=== PATIENT | female | born 1940 | race Caucasian/White ===

== ENCOUNTER 2017-06-11 12:25 | Emergency (ER) | payer MEDICARE, OTHER ==
[~2017-06-11] VITALS: Ht 160 cm; Wt 58.0 kg
[~2017-06-11 12:25] MED LIST: AGGR20025 PO; ALPR.25 PO; CHOL50008 PO; CPMMACHINE; GINK60TA2 PO; HYDR-3516 PO; LEVO75TA3 PO; LISI2.5T3 PO; METF500T PO; MISC-163; PANT40TA3 PO; SIMV40TA PO; SYSTSOL11 EACH EYE; TRAZ50TA12 PO; VITA10002 PO; WALKER WHEELS/F1 MIS
[2017-06-11 12:30] VITALS: BP 124/60; PULSE 63; RESP 16; TEMP 97.9; O2SAT 98
[2017-06-11] MEDS ORDERED: MELO7.5T4 PO (12:49)
[2017-06-11] MEDS ORDERED: LEXA10TA PO (12:49)
--- NOTE | 2017-06-11 13:09 | PD ---
HPI Chief Complaint: Musculoskeletal Complaint Time Seen by Provider: 12:58 Travel History International Travel<30 days: No Contact w/Intl Traveler<30days: No Traveled to known affect area: No History of Present Illness HPI 76-year-old female presents for evaluation of lower back pain. Symptoms started 1.5 weeks ago. The pain is a sharp shooting pain in lower back that radiates down the posterior left thigh. She has had similar pain in the past, diagnosed with sciatica. She is currently trying use [id number] NSAIDs with minimal relief. She denies any trauma but she does note that she was carrying heavy grocery bags and thinks that this may have aggravated her back. Denies any known history of osteoporosis. Denies any abdominal pain, nausea or vomiting, bowel or bladder incontinence, saddle anesthesia. She has no other complaints at this time. PFSH Past Medical History Arthritis: Yes Blood Disorders: No Cancer: Yes (COLON) Cardiovascular Problems: No High Cholesterol: Yes Chemotherapy: Yes Diabetes: Yes Endocrine: No Gastrointestinal Disorders: Yes (IBS, COLON CANCER HX--SURGERY,CHEMO,RADIATION 2007) GERD: Yes Genitourinary: Yes (INCREASED FREQUENCY) Hepatitis: No Hiatal Hernia: No Hypertension: Yes Immune Disorder: No Musculoskeletal: Yes (LOW BACK AND BILATERAL HIP PAIN) Neurologic: No Psychiatric: No Reproductive: No Respiratory: No Immunizations Current: Yes Radiation Therapy: Yes Thyroid Disease: Yes (HYPOTHYROID) Ulcer: Yes ("STOMACH ULCER") Menopausal: Yes Past Surgical History Abdominal Surgery: Yes (GALLBALDDER, APPENDECTOMY) AICD: No Appendectomy: Yes Body Medical Devices: HX OF PORT, WAS REMOVED Cardiac Surgery: No Cholecystectomy: Yes Ear Surgery: No Endocrine Surgery: No Eye Surgery: No Genitourinary Surgery: No Gynecologic Surgery: Yes (HYSTERECTOMY) Hysterectomy: Yes Joint Replacement: No Oral Surgery: No Pacemaker: No Thoracic Surgery: No Tonsillectomy: Yes Other Surgery: Yes (RAMILA,APPY,COLOECTOMY,GALLBLADDER,INFUSAPORT,CYST) Social History Alcohol Use: Yes (OCC) Tobacco Use: Yes (1/2 ppd) Substance Use: No Allergies-Medications (Allergen,Severity, Reaction): Coded Allergies: meperidine (Unverified Allergy, Severe, Psychosis, 06/11/17) tetanus immune globulin (Unverified Allergy, Severe, SWELLING, 06/11/17) Fish Containing Products (Unverified Allergy, Intermediate, RASH, 06/11/17) 06/28/2013 PT STRONGLY DENIES ALLERGY. STATES SHE EATS LOTS OF TUNA/PT CONTINUES TO DENY ALLERGY MADE AWARE IN ER 11/04/14 adhesive (Unverified Allergy, Intermediate, BLISTERS, 06/11/17) ADHESIVE TAPE-PAPER TAPE [place] Reported Meds & Prescriptions Reported Meds & Active Scripts Active Lidocaine Patch 12 HR (Lidocaine) 5 % Patch 1 Patch TOPICAL DAILY PRN Remove patch after 12 hours Tylenol-Codeine #3 (Acetaminophen-Codeine) 300-30 mg Tab 1 Tab PO Q4H PRN Reported Lexapro (Escitalopram Oxalate) 10 Mg Tab 10 Mg PO DAILY Meloxicam 7.5 Mg Tab 7.5 Mg PO DAILY Xanax (Alprazolam) 0.25 Mg Tab 0.25 Mg PO HS Trazodone (Trazodone HCl) 50 Mg Tab 50 Mg PO HS Simvastatin 40 Mg Tab 40 Mg PO HS Pantoprazole (Pantoprazole Sodium) 40 Mg Tab 40 Mg PO DAILY Aggrenox (Dipyridamole/Aspirin) 200-25 Mg Cap 1 Cap PO BID Lisinopril 2.5 Mg Tab 10 Mg PO DAILY Levothyroxine (Levothyroxine Sodium) 75 Mcg Tab 75 Mcg PO DAILY Metformin (Metformin HCl) 500 Mg Tab 250 Mg PO BIDPC With meals Review of Systems Except as stated in HPI: all other systems reviewed are Neg Physical Exam Narrative GENERAL: Well-developed well-nourished female in no acute distress SKIN: Warm and dry. HEAD: Atraumatic. Normocephalic. EYES: Pupils equal and round. No scleral icterus. No injection or drainage. ENT: No nasal bleeding or discharge. Mucous membranes pink and moist. NECK: Trachea midline. No JVD. CARDIOVASCULAR: Regular rate and rhythm. No murmur appreciated. RESPIRATORY: No accessory muscle use. Clear to auscultation. Breath sounds equal bilaterally. GASTROINTESTINAL: Abdomen soft, non-tender, nondistended. Hepatic and splenic margins not palpable. MUSCULOSKELETAL: No obvious deformities. There is some tenderness to palpation along the lower back and left parasacral musculature. 5 out of 5 muscle strength in lower extremities bilaterally. No lower extremity edema. Distal pulses are intact. NEUROLOGICAL: Awake and alert. No obvious cranial nerve deficits. Motor grossly within normal limits. Normal speech. PSYCHIATRIC: Appropriate mood and affect; insight and judgment normal. Data Data Last Documented VS Vital Signs Date Time Temp Pulse Resp B/P (MAP) Pulse Ox O2 Delivery O2 Flow Rate FiO2 06/11/17 12:30 97.9 63 16 124/60 (81) 98 Orders Orders Spine, Lumbar - Ltd (Ap & Lat) (06/11/17 ) [facility] Medical Decision Making Medical Screen Exam Complete: Yes Emergency Medical Condition: Yes Medical Record Reviewed: Yes Differential Diagnosis Herniated nucleus pulposus, spinal stenosis, compression fracture, degenerative disc disease, piriformis syndrome Narrative Course 76-year-old female presents for evaluation of 1.5 weeks of lower back pain that radiates down the left leg. Her history is certainly consistent with lumbosacral radiculopathy. Given her age, x-ray of the lumbar spine is been ordered to rule out compression fracture. Extremities reveals degenerative changes with no acute findings. The patient is currently prescribed meloxicam. She will be prescribed Tylenol with Codeine as well as Lidoderm patches for breakthrough pain. Diagnosis Primary Impression: Lumbosacral radiculopathy Additional Instructions: Medication as needed. Do not drive or drink alcohol when taking Tylenol with Codeine. Follow-up with primary care physician. Return for any emergent medical conditions. Med/Other Pt SpecificInfo: Prescription(s) given Scripts Lidocaine Patch 12 HR (Lidocaine Patch 12 HR) 5 % Patch 1 PATCH TOPICAL DAILY Y for PAIN, #1 BOX 1 Refill Remove patch after 12 hours Prov: Bubba Jarrell MD 06/11/17 Acetaminophen-Codeine (Tylenol-Codeine #3) 300-30 mg Tab 1 TAB PO Q4H Y for PAIN, #20 TAB 0 Refills Prov: Bubba Jarrell MD 06/11/17 Disposition: 01 DISCHARGE HOME Condition: Stable Art Chaves Jun 11, 2017 13:09
--- NOTE | 2017-06-11 13:24 | RADRPT ---
EXAM DATE/TIME: 06/11/2017 13:05 [facility] COMPARISON: No previous studies available for comparison. INDICATIONS : Back pain and pain radiating down left leg with no known injury MEDICAL HISTORY : None. SURGICAL HISTORY : None. ENCOUNTER: Initial ACUITY: 2 weeks PAIN SCORE: 10/10 LOCATION: Bilateral lumbar spine FINDINGS: There are degenerative changes in the lumbar spine at L2-3 and L4-5 with vacuum disc evident. There are mild degenerative changes in the facets. There is loss of disc space height at L5-S1. Moderate vascular calcifications are noted. CONCLUSION: Degenerative changes as described above. Felton Renteria MD FACR on June 11, 2017 at 13:17 Board Certified Radiologist. This report was verified electronically.
[2017-06-11] MEDS ORDERED: TYLETAB34 PO (13:27)
[2017-06-11] MEDS ORDERED: LIDO1PAD52 TOPICAL (13:31)
== END 2017-06-11 13:57 | disposition home or self-care (01) ==
LOC: PHEFT 12:25
DX: M54.17 Radiculopathy, lumbosacral region (principal); E03.9 Hypothyroidism, unspecified; E11.9 Type 2 diabetes mellitus without complications; E78.00 Pure hypercholesterolemia, unspecified; I10 Essential (primary) hypertension; Z87.19 Personal history of other diseases of the digestive system; Z85.038 Personal history of other malignant neoplasm of large intestine
CPT/HCPCS: 72100; 99283

== ENCOUNTER → 2017-06-28 | Day surgery (SDC) | payer OTHER ==
[~2017-06-28] VITALS: Ht 160 cm; Wt 54.0 kg
[~2017-06-28] MED LIST changes: -CHOL50008 PO; -CPMMACHINE; +DO NOT ADM ANY ANTICOAGULANT DRUGS PRN; -GINK60TA2 PO; +GLUCAGON 1 MG/ML VIAL IV PUSH ONE; -HYDR-3516 PO; +LACTATED RINGER'S 1000 ML INJ 1,000 ML IV ONE; +LEXA10TA PO; +LIDO1PAD52 TOPICAL; +LIDOCAINE HCL 1% PF 5 ML AMPULE OTHER ONE; +MELO7.5T4 PO; -MISC-163; +ONDANSETRON HCL 4 MG/2 ML VIAL IV ONE; +PROPOFOL 200 MG/20 ML AMP IV ONE; -SYSTSOL11 EACH EYE; +TYLETAB34 PO; -VITA10002 PO; -WALKER WHEELS/F1 MIS
[2017-06-28 11:41] VITALS: BP 132/63; PULSE 84; RESP 22; TEMP 98.8; O2SAT 97
--- NOTE | 2017-06-28 14:15 | PD ---
HPI Chief Complaint: GI Complaint Time Seen by Provider: 13:56 Travel History International Travel<30 days: No Contact w/Intl Traveler<30days: No Traveled to known affect area: No History of Present Illness HPI This patient complains of trouble swallowing and pain when she swallows. She has history of esophageal stricture and has had multiple esophageal dilations in the past. The last was 5 months ago done by her GI physician Dr. Moscoso. Not having fever or vomiting. Feels like her esophagus is closing up. Duration 3-4 days. She called her office and got a follow-up set up for August 02 at 8:30 in the morning with . However she doesn't think she is going last that long. Symptoms moderately severe. No alleviating factors. Symptoms are exacerbated by solid food. PFSH Past Medical History Arthritis: Yes Blood Disorders: No Cancer: Yes (COLON) Cardiovascular Problems: No High Cholesterol: Yes Chemotherapy: Yes Diabetes: Yes Endocrine: No Gastrointestinal Disorders: Yes (IBS, COLON CANCER HX--SURGERY,CHEMO,RADIATION 2007) GERD: Yes Genitourinary: Yes (INCREASED FREQUENCY) Hepatitis: No Hiatal Hernia: No Hypertension: Yes Immune Disorder: No Musculoskeletal: Yes (LOW BACK AND BILATERAL HIP PAIN) Neurologic: No Psychiatric: No Reproductive: No Respiratory: No Immunizations Current: Yes Radiation Therapy: Yes Thyroid Disease: Yes (HYPOTHYROID) Ulcer: Yes ("STOMACH ULCER") ?: Not Menopausal: Yes Past Surgical History Abdominal Surgery: Yes (GALLBALDDER, APPENDECTOMY) AICD: No Appendectomy: Yes Body Medical Devices: HX OF PORT, WAS REMOVED Cardiac Surgery: No Cholecystectomy: Yes Ear Surgery: No Endocrine Surgery: No Eye Surgery: No Genitourinary Surgery: No Gynecologic Surgery: Yes (HYSTERECTOMY) Hysterectomy: Yes Joint Replacement: No Oral Surgery: No Pacemaker: No Thoracic Surgery: No Tonsillectomy: Yes Other Surgery: Yes (RAMILA,APPY,COLOECTOMY,GALLBLADDER,INFUSAPORT,CYST) Social History Alcohol Use: Yes (OCC) Tobacco Use: Yes (1/2 ppd) Substance Use: No Allergies-Medications (Allergen,Severity, Reaction): Coded Allergies: meperidine (Unverified Allergy, Severe, Psychosis, 06/28/17) tetanus immune globulin (Unverified Allergy, Severe, SWELLING, 06/28/17) Fish Containing Products (Unverified Allergy, Intermediate, RASH, 06/28/17 ) 06/28/2013 PT STRONGLY DENIES ALLERGY. STATES SHE EATS LOTS OF TUNA/PT CONTINUES TO DENY ALLERGY MADE AWARE IN ER 11/04/14 adhesive (Unverified Allergy, Intermediate, BLISTERS, 06/28/17) ADHESIVE TAPE-PAPER TAPE [place] Reported Meds & Prescriptions Reported Meds & Active Scripts Active Reported Lexapro (Escitalopram Oxalate) 10 Mg Tab 10 Mg PO DAILY Meloxicam 7.5 Mg Tab 7.5 Mg PO DAILY Xanax (Alprazolam) 0.25 Mg Tab 0.25 Mg PO HS Trazodone (Trazodone HCl) 50 Mg Tab 50 Mg PO HS Simvastatin 40 Mg Tab 40 Mg PO HS Pantoprazole (Pantoprazole Sodium) 40 Mg Tab 40 Mg PO DAILY Aggrenox (Dipyridamole/Aspirin) 200-25 Mg Cap 1 Cap PO BID Lisinopril 2.5 Mg Tab 10 Mg PO DAILY Levothyroxine (Levothyroxine Sodium) 75 Mcg Tab 75 Mcg PO DAILY Metformin (Metformin HCl) 500 Mg Tab 250 Mg PO BIDPC With meals Review of Systems General / Constitutional: No: Fever Eyes: No: Visual changes HENT: No: Headaches Cardiovascular: No: Chest Pain or Discomfort Respiratory: No: Shortness of Breath Gastrointestinal: Positive: Nausea, Dysphagia Genitourinary: No: Dysuria Musculoskeletal: No: Pain Skin: No Rash Neurologic: No: Weakness Psychiatric: No: Depression Endocrine: No: Polydipsia Hematologic/Lymphatic: No: Easy Bruising Physical Exam Narrative GENERAL: Well-nourished, well-developed patient with esophageal discomfort . SKIN: Focused skin assessment reveals no rash and nodules. Skin is Warm and dry. HEAD: Atraumatic. Normocephalic. EYES: Pupils equal and round. No scleral icterus. No injection or drainage. ENT: No nasal bleeding or discharge. Mucous membranes pink and moist. NECK: Trachea midline. No JVD. CARDIOVASCULAR: Regular rate and rhythm. No murmur appreciated. RESPIRATORY: No accessory muscle use. Clear to auscultation. Breath sounds equal bilaterally. GASTROINTESTINAL: Abdomen soft, non-tender, nondistended. Hepatic and splenic margins not palpable. MUSCULOSKELETAL: No obvious deformities. No clubbing. No cyanosis. No edema. NEUROLOGICAL: Awake and alert. No obvious cranial nerve deficits. Motor grossly within normal limits. Normal speech. PSYCHIATRIC: Appropriate mood and affect; insight and judgment normal. Data Data Last Documented VS Vital Signs Date Time Temp Pulse Resp B/P (MAP) Pulse Ox O2 Delivery O2 Flow Rate FiO2 06/28/17 11:41 98.8 84 22 132/63 (86) 97 Orders Orders Ondansetron Inj (Zofran Inj) (06/28/17 14:15) Iv Access Insert/Monitor (06/28/17 14:09) Complete Blood Count With Diff (06/28/17 14:09) Basic Metabolic Panel (Bmp) (06/28/17 14:09) Glucagon Inj (Glucagon Inj) (06/28/17 14:15) Diet Npo Except Meds (06/28/17 Dinner) Consent (06/28/17 15:46) Admit Order (Ed Use Only) (06/28/17 15:48) Labs Laboratory Tests Test 06/28/17 14:30 White Blood Count 6.5 TH/MM3 Red Blood Count 4.19 MIL/MM3 Hemoglobin 12.7 GM/DL Hematocrit 38.1 % Mean Corpuscular Volume 90.9 FL Mean Corpuscular Hemoglobin 30.3 PG Mean Corpuscular Hemoglobin Concent 33.3 % Red Cell Distribution Width 15.1 % Platelet Count 246 TH/MM3 Mean Platelet Volume 7.4 FL Neutrophils (%) (Auto) 60.4 % Lymphocytes (%) (Auto) 27.1 % Monocytes (%) (Auto) 8.1 % Eosinophils (%) (Auto) 3.7 % Basophils (%) (Auto) 0.7 % Neutrophils # (Auto) 3.9 TH/MM3 Lymphocytes # (Auto) 1.8 TH/MM3 Monocytes # (Auto) 0.5 TH/MM3 Eosinophils # (Auto) 0.2 TH/MM3 Basophils # (Auto) 0.0 TH/MM3 CBC Comment DIFF FINAL Differential Comment Blood Urea Nitrogen 16 MG/DL Creatinine 0.81 MG/DL Random Glucose 84 MG/DL Calcium Level 10.0 MG/DL Sodium Level 137 MEQ/L Potassium Level 4.9 MEQ/L Chloride Level 103 MEQ/L Carbon Dioxide Level 23.6 MEQ/L Anion Gap 10 MEQ/L Estimat Glomerular Filtration Rate 69 ML/MIN MDM Medical Decision Making Medical Screen Exam Complete: Yes Emergency Medical Condition: Yes Medical Record Reviewed: Yes Differential Diagnosis Esophageal stricture, esophageal foreign body, achalasia Narrative Course I have reviewed the patient's electronic medical record. Reviewed her last visit here. Last dilation was 5 months ago IV placed I gave her dose of IV Zofran and 1 mg IV glucagon CBC is normal Metabolic profile is normal I had her drink water and she very much struggled to get any water down. It caused her pain and barely could get it down I placed a call to her GI physician to discuss. He came to the bedside and evaluated her. He is going to endoscopy with possible dilation of the patient cannot eat Hopefully she'll be able to go home after the procedure Diagnosis Primary Impression: Dysphagia Qualified Codes: R13.10 - Dysphagia, unspecified Additional Impression: Esophageal stricture Admitting Information Admitting Physician Requests: Admit Bubba Jarrell MD Jun 28, 2017 14:15
[2017-06-28 14:47] LABS: AUTOMATED NEUTROPHIL # 3.9 TH/MM3 (1.8-7.7); BASOPHIL % 0.7 % (0.0-2.0); EOSINOPHIL # 0.2 TH/MM3 (0-0.4); EOSINOPHIL % 3.7 % (0.0-4.0); HEMATOCRIT 38.1 % (35.0-46.0); HEMO FLAGS DIFF FINAL; LYMPH % 27.1 % (9.0-44.0); LYMPHOCYTE # 1.8 TH/MM3 (1.0-4.8); MEAN CELL VOLUME 90.9 FL (80.0-100.0); MEAN CORPUSCULAR HEMOGLOBIN 30.3 PG (27.0-34.0); MEAN CORPUSCULAR HGB CONC 33.3 % (32.0-36.0); MONO % 8.1 % (0.0-8.0); NEUT % 60.4 % (16.0-70.0); PLATELET COUNT 246 TH/MM3 (150-450); RED BLOOD COUNT 4.19 MIL/MM3 (4.00-5.30); RED CELL DISTRIBUTION WIDTH 15.1 % (11.6-17.2); WHITE BLOOD COUNT 6.5 TH/MM3 (4.0-11.0)
[2017-06-28 15:05] LABS: BICARBONATE 23.6 MEQ/L (21.0-32.0); POTASSIUM 4.9 MEQ/L (3.5-5.1)
--- NOTE | 2017-06-28 15:35 | PD.CONS ---
HPI History of Present Illness This is a 76 year old female with hx esophageal strictures requiring multiple dilatations who presented with projectile vomiting, difficult swallowing, hoarse voice. Wednesday she had eaten and an hour later just vomited, no feeling of nausea. She had several episodes vomiting. She tried a few bites of sandwich subsequently and vomited that as well. No blood in vomit. NO abd pain. Admits chronic diarrhea. Had EGD with dilatation with Dr Moscoso 5 months ago. Takes aggrenox and last took or Wednesday. (Betina Marrufo) PFSH Past Medical History colon ca esophageal strictures Past Surgical History hysterectomy cholecystectomy (Betina Marrufo) Coded Allergies: meperidine (Unverified Allergy, Severe, Psychosis, 06/28/17) tetanus immune globulin (Unverified Allergy, Severe, SWELLING, 06/28/17) Fish Containing Products (Unverified Allergy, Intermediate, RASH, 06/28/17 ) 06/28/2013 PT STRONGLY DENIES ALLERGY. STATES SHE EATS LOTS OF TUNA/PT CONTINUES TO DENY ALLERGY MADE AWARE IN ER 11/04/14 adhesive (Unverified Allergy, Intermediate, BLISTERS, 06/28/17) ADHESIVE TAPE-PAPER TAPE [place] Family History none Social History no ETOH 6 cigarettes daily no illicit drug use (Betina Marrufo) Review of Systems Constitutional: DENIES: Fever Ears, nose, mouth, throat: DENIES: Throat pain Respiratory: DENIES: Hemoptysis Cardiovascular: DENIES: Chest pain Gastrointestinal: COMPLAINS OF: Diarrhea, Vomiting, Difficulty Swallowing, DENIES: Abdominal pain, Black stools, Bloody stools, Constipation, Nausea, Hematemesis Genitourinary: DENIES: Hematuria Musculoskeletal: DENIES: Joint Swelling Integumentary: DENIES: Jaundice Neurologic: DENIES: Abnormal gait Psychiatric: DENIES: Confusion (Betina Marrufo) GI Exam Vitals I&O Vital Signs Date Time Temp Pulse Resp B/P (MAP) Pulse Ox O2 Delivery O2 Flow Rate FiO2 06/28/17 11:41 98.8 84 22 132/63 (86) 97 Laboratory Test 06/28/17 14:30 White Blood Count 6.5 TH/MM3 Red Blood Count 4.19 MIL/MM3 Hemoglobin 12.7 GM/DL Hematocrit 38.1 % Mean Corpuscular Volume 90.9 FL Mean Corpuscular Hemoglobin 30.3 PG Mean Corpuscular Hemoglobin Concent 33.3 % Red Cell Distribution Width 15.1 % Platelet Count 246 TH/MM3 Mean Platelet Volume 7.4 FL Neutrophils (%) (Auto) 60.4 % Lymphocytes (%) (Auto) 27.1 % Monocytes (%) (Auto) 8.1 % Eosinophils (%) (Auto) 3.7 % Basophils (%) (Auto) 0.7 % Neutrophils # (Auto) 3.9 TH/MM3 Lymphocytes # (Auto) 1.8 TH/MM3 Monocytes # (Auto) 0.5 TH/MM3 Eosinophils # (Auto) 0.2 TH/MM3 Basophils # (Auto) 0.0 TH/MM3 CBC Comment DIFF FINAL Differential Comment Blood Urea Nitrogen 16 MG/DL Creatinine 0.81 MG/DL Random Glucose 84 MG/DL Calcium Level 10.0 MG/DL Sodium Level 137 MEQ/L Potassium Level 4.9 MEQ/L Chloride Level 103 MEQ/L Carbon Dioxide Level 23.6 MEQ/L Anion Gap 10 MEQ/L Estimat Glomerular Filtration Rate 69 ML/MIN Physical Examination HEENT: PERRL; normocephalic; atraumatic; no jaundice. hoarse voice CHEST: CTA CARDIAC: RRR ABDOMEN: Soft, nondistended, LUQ TTP; no hepatosplenomegaly; bowel sounds are present in all four quadrants. EXTREMITIES: No clubbing, cyanosis, or edema. SKIN: Normal; no rash; no jaundice. [employer]: No focal deficits; alert and oriented times three. (Betina Marrufo) Assessment and Plan Plan ASSESSMENT - dysphagia, hoarse voice, projectile vomiting - pt with onset projectile vomiting w/o nausea and subsequent hoarseness, difficulty swallowing solids. Unable to tolerate solid food. hx esophageal strictures with multiple dilatations, last one with Dr Moscoso 5 m ago. PLAN - EGD with possible dilatation this afternoon - obtain consent - NPO - further recs to follow This pt seen by myself and Dr Whitney and this note was written on his behalf (Betina Marrufo) Physician Comments Patient seen and examined Agree with above Continue current supportive care Plan EGD to further evaluate Further recommendations shall depend on the findings (Jerry Whitney MD) Betina Marrufo Jun 28, 2017 15:35 Jerry Whitney MD Jun 28, 2017 17:08
--- NOTE | 2017-06-28 17:32 | PD.PROCEDR ---
GI Procedure REFERRING PHYSICIAN ED PROCEDURE PERFORMED EGD with biopsy INDICATION FOR PROCEDURE Dysphagia and hoarseness PROCEDURE: The procedure, risks and benefits were discussed with Ms. Lam and informed consent was obtained. Anesthesia sedated her with Diprivan. She was placed in the left lateral decubitus position. EGD: The Pentax videoscope was introduced through the oropharynx and advanced to the second portion of the duodenum under direct visualization. Retroflexion was performed in the stomach. FINDINGS: Esophagus there were several ulcerations noted from the mid to distal esophagus superficial and linear these were biopsied there was also a mild Schatzki ring The stomach there was small to moderate size hiatal hernia the gastric mucosa appeared to be somewhat erythemic in a patchy fashion no ulcerations or erosions and antral biopsies were taken further evaluation The duodenum there was some edema and some erythema noted in the duodenal bulb of unclear significance this was biopsied otherwise the duodenum was unremarkable ESTIMATED BLOOD LOSS: None SPECIMENS REMOVED: Esophageal, gastric, and duodenal biopsies COMPLICATIONS: None IMPRESSION: Erosive ulcerated esophagitis Mild Schatzki ring Mild to moderate hiatal hernia Gastritis Duodenitis PLAN: Await biopsy Recommend Protonix 40 mg twice a day Avoid nonsteroidal's Soft diet for now and advance as tolerated Follow-up with GI in 2 weeks Okay for discharge from a GI standpoint Jerry Whitney MD Jun 28, 2017 17:32
[2017-06-28 18:15] VITALS: BP 109/59; PULSE 78; RESP 18; TEMP 98; O2SAT 99
--- NOTE | 2017-06-29 20:21 | EKG ---
Date Performed: 06/28/2017 Time Performed: 16:21:12 PTAGE: 76 years EKG: Sinus rhythm NORMAL ECG PREVIOUS TRACING : 05/15/2015 14.33 Compared to prior tracing no significant change DOCTOR: Killian Stein Interpretating Date/Time 06/29/2017 20:20:52
== END | disposition home or self-care (01) ==
LOC: NEPD 11:39 → HSDC 15:50
PROVIDERS: ATTEND Internal Medicine Gastroenterology
DX: K22.10 Ulcer of esophagus without bleeding (principal); K29.80 Duodenitis without bleeding; K29.50 Unspecified chronic gastritis without bleeding; K44.9 Diaphragmatic hernia without obstruction or gangrene; I10 Essential (primary) hypertension; E11.9 Type 2 diabetes mellitus without complications; Z79.84 Long term (current) use of oral hypoglycemic drugs
CPT/HCPCS: 00740; 43239; 80048; 85025; 88305; 88312; 93005; 96374; 96375; 99285; J1610; J2405; J7120

== ENCOUNTER 2018-07-01 10:04 | Inpatient (IN) ==
--- NOTE | 2018-07-01 10:10 | ED ---
HPI General Chief complaint: Abdominal Pain Stated complaint: abd pain Source: patient Mode of arrival: EMS Limitations: no limitations History of Present Illness HPI narrative: 77-year-old female is complaining of abdominal pain. Been having abdominal pain for about 4 weeks. The pain involves the lower abdomen as well as the left flank area. It is been fairly constant and she says it is more severe today. She is come by ambulance. There has not been any vomiting or diarrhea. She is not aware of fever or chills. She says she does not urinate very often. There is been a loss of appetite. She has a history of hysterectomy and cholecystectomy. she says the pain is quite severe. She was treated for cancer of the colon around 1999. She says she had surgery followed by chemotherapy and is not aware of any recent activity she was going for colonoscopies but is not sure when her last one was. Related Data Home Medications Medication Instructions Recorded Confirmed aspirin-dipyridamole 1 cap PO DAILY 07/01/18 07/01/18 cholecalciferol (vitamin D3) 5,000 unit PO DAILY 07/01/18 07/01/18 donepezil 5 mg PO DAILY 07/01/18 07/01/18 escitalopram oxalate [Lexapro] 10 mg PO DAILY 07/01/18 07/01/18 levothyroxine [Synthroid] 75 mcg PO DAILY 07/01/18 07/01/18 lisinopril 2.5 mg PO DAILY 07/01/18 07/01/18 meloxicam 7.5 mg PO DAILY 07/01/18 07/01/18 metformin 250 mg PO BID 07/01/18 07/01/18 pantoprazole [Protonix] 40 mg PO BID 07/01/18 07/01/18 simvastatin 40 mg PO QPM 07/01/18 07/01/18 tramadol 50 mg PO Q6HR 07/01/18 07/01/18 trazodone 50 mg PO HS 07/01/18 07/01/18 Allergies Allergy/AdvReac Type Severity Reaction Status Date / Time meperidine Allergy Severe Psychosis Verified 07/01/18 10:43 tetanus immune globulin Allergy Severe SWELLING Verified 07/01/18 10:43 adhesive Allergy Intermediate BLISTERS Verified 07/01/18 10:43 Fish Containing Products Allergy Intermediate RASH Verified 10/19/18 10:43 Review of Systems ROS: all other systems reviewed are negative [facility] Medical History Medical History Colon cancer (Acute) Dementia (Acute) Diabetes (Acute) H/O: hysterectomy (Acute) High cholesterol (Acute) Hypertension (Acute) Hypothyroid (Acute) Surgical History Surgical History History of partial colectomy (Acute) Hx of cholecystectomy (Acute) Hx of tonsillectomy (Acute) Social History Social History Substance History: No History of Abuse Smoking Status: Former smoker How Often Do You Have a Drink Containing Alcohol: Never Recent Travel in [facility] within the Last 8 Weeks: No Recent Out of Country Travel within the Last 8 Weeks: No Exam Narrative Exam Narrative: GENERAL: Thin elderly female SKIN: Focused skin assessment warm/dry. HEAD: Atraumatic. Normocephalic. EYES: Pupils equal and round. No scleral icterus. No injection or drainage. ENT: No nasal bleeding or discharge. Mucous membranes pink and moist. NECK: Trachea midline. No JVD. CARDIOVASCULAR: Regular rate and rhythm. No murmur appreciated. RESPIRATORY: No accessory muscle use. Clear to auscultation. Breath sounds equal bilaterally. GASTROINTESTINAL: Abdomen soft, there is some lower abdominal and left-sided abdominal tenderness. She appears slightly distended bowel sounds are diminished but present. MUSCULOSKELETAL: No obvious deformities. No clubbing. No cyanosis. No edema. NEUROLOGICAL: Awake and alert. No obvious cranial nerve deficits. Motor grossly within normal limits. Normal speech. PSYCHIATRIC: Appropriate mood and affect; insight and judgment normal. Course Initial Documented Vital Signs Temperature 98.5 F 07/01/18 10:05 Pulse Rate 72 07/01/18 10:05 Respiratory Rate 18 07/01/18 10:05 Blood Pressure 141/71 H 07/01/18 10:05 Pulse Oximetry 99 07/01/18 10:05 Last Documented Vital Signs Temperature 98.5 F 07/01/18 10:05 Pulse Rate 72 07/01/18 10:05 Respiratory Rate 18 07/01/18 10:05 Blood Pressure 141/71 H 07/01/18 10:05 Pulse Oximetry 99 07/01/18 10:05 Medical Decision Making MDM Narrative Medical decision making narrative: On initial evaluation I was concerned there was some lower abdominal distention and a Haq catheter was inserted but only 300 cc is obtained and this did not provide relief of her pain. A CT scan of the abdomen and pelvis is suggestive of small bowel obstruction. She has received 6 mg of morphine without much relief of her discomfort. NG tube has been inserted but is causing a lot of gagging. We will try some Hurricaine spray. Case has been discussed with Dr. Jimenez who requests admission at the [facility] hospital to medical service Medical Screen Exam Complete: Yes Emergency Medical Condition: Yes Differential Diagnosis Differential Diagnosis: Differential includes diverticulitis, bowel obstruction , urinary retention Lab Data Result diagrams: 07/01/18 10:33 07/01/18 10:33 Lab Results 07/01/18 07/01/18 07/01/18 Range/Units 10:33 10:33 10:33 CBC w Diff Slide review pending WBC 10.1 (4.0-11.0) th/mm3 RBC 3.97 L (4.00-5.30) mil/mm3 Hgb 12.0 (11.6-15.3) gm/dL Hct 35.9 (35.0-46.0) % MCV 90.5 (80.0-100.0) fL MCH 30.2 (27.0-34.0) pg MCHC 33.3 (32.0-36.0) % RDW 14.1 (11.6-17.2) % Plt Count 446 (150-450) th/mm3 MPV 7.3 (7.0-11.0) fL Neut % (Auto) 75.6 H (16.0-70.0) % Lymph % (Auto) 12.5 (9.0-44.0) % [place] % (Auto) 4.0 (0.0-8.0) % Eos % (Auto) 0.9 (0.0-4.0) % Baso % (Auto) 7.0 H (0.0-2.0) % Neut # (Auto) 7.6 (1.8-7.7) th/mm3 Lymph # (Auto) 1.3 (1.0-4.8) th/mm3 [place] # (Auto) 0.4 (0.0-0.9) th/mm3 Eos # (Auto) 0.1 (0.0-0.4) th/mm3 Baso # (Auto) 0.7 H (0.0-0.2) th/mm3 WBC Differential Manual diff final Seg Neuts % (Manual) 82 H (16-70) % Lymphocytes % (Manual) 15 (9-44) % Monocytes % (Manual) 3 (0-8) % Abs Neuts (Manual) 8.3 H (1.8-7.7) th/mm3 Differential Comment . Platelet Estimate Normal (Normal) Platelet Morphology Normal (Normal) RBC Morphology Normal (Normal) Sodium 141 (136-145) meq/L Potassium 3.4 L (3.5-5.1) meq/L Chloride 109 H (98-107) meq/L Carbon Dioxide 20.2 L (21.0-32.0) meq/L Anion Gap 12 (5-15) meq/L BUN 7 (7-18) mg/dL Creatinine 0.71 (0.50-1.00) mg/dL Estimated GFR 80 L (>89) mL/min Random Glucose 91 (74-106) mg/dL Calcium 8.0 L (8.5-10.1) mg/dL Total Bilirubin 0.5 (0.2-1.0) mg/dL AST 17 (15-37) U/L ALT 12 (10-53) U/L Alkaline Phosphatase 75 (45-117) U/L Total Protein 6.5 (6.4-8.2) g/dL Albumin 2.9 L (3.4-5.0) g/dL Lipase 58 L (73-393) U/L Urine Color Yellow (Yellw/Straw) Urine Clarity Clear (Clear) Urine pH 7.5 (5.0-8.5) Ur Specific [place] 1.010 (1.002-1.035) Urine Protein Negative (Neg-Trace) mg/dL Urine Glucose (UA) Negative (Negative) mg/dL Urine Ketones Negative (Negative) mg/dL Urine Occult Blood Negative (Negative) Urine Nitrate Negative (Negative) Urine Bilirubin Negative (Negative) Urine Urobilinogen 1.0 (Less than 2) mg/dL Ur Leukocyte Esterase Negative (Negative) Ur Squamous Epith Cells 0-5 (0-5) /hpf Micro UA Comment Cath-culture not ind Ur Microscopic Review Microscopic reviewed Urine Culture Comments Cath-cult not ind Imaging Data Radiologist's impression: Abdomen/Pelvis CT 07/01/18 10:31 CONCLUSION: 1. The findings are concerning for small bowel obstruction with dilated loops of small intestine, and transition point in the right lower quadrant with decompressed distal ileum. 2. Atherosclerosis. 3. Right renal cyst. Discharge Plan Discharge Disposition Patient Disposition: 30 Still Patient Discharge Condition Condition: Fair Discharge Details Diagnosis: Small bowel obstruction Physicians Team [place] [place]: Watson Salter Rxs /Orders / Referrals /Forms Prescriptions: No Action metformin 500 mg Tablet 250 mg PO BID RF: 0 aspirin-dipyridamole 25-200 mg Capsule, Er Multiphase 12 Hr 1 cap PO DAILY RF: 0 donepezil 5 mg Tablet 5 mg PO DAILY RF: 0 trazodone 50 mg Tablet 50 mg PO HS RF: 0 tramadol 50 mg Tablet 50 mg PO Q6HR RF: 0 simvastatin 40 mg Tablet 40 mg PO QPM RF: 0 levothyroxine [Synthroid] 75 mcg Tablet 75 mcg PO DAILY RF: 0 meloxicam 7.5 mg Tablet 7.5 mg PO DAILY RF: 0 pantoprazole [Protonix] 40 mg Tablet,Delayed Release (Dr/Ec) 40 mg PO BID RF: 0 lisinopril 2.5 mg Tablet 2.5 mg PO DAILY RF: 0 cholecalciferol (vitamin D3) 5,000 unit Capsule 5,000 unit PO DAILY RF: 0 escitalopram oxalate [Lexapro] 10 mg Tablet 10 mg PO DAILY RF: 0 Status ED Status: In Room
[2018-07-01] MEDS ORDERED: Morphine Sulfate Inj 2 MG/ML Vial IV.PUSH ONE ×2 (10:18→12:34)
[2018-07-01] MEDS ORDERED: Sod Chloride 0.9% Inj 1,000 ML IV.CONT ONE (10:30)
[2018-07-01 10:41] LABS: Baso # (Auto) 0.7 th/mm3 (0.0-0.2); Eos # (Auto) 0.1 th/mm3 (0.0-0.4); Eos % (Auto) 0.9 % (0.0-4.0); Hematocrit 35.9 % (35.0-46.0); Lymph # (Auto) 1.3 th/mm3 (1.0-4.8); Lymph % (Auto) 12.5 % (9.0-44.0); Mean Corpuscular HGB Conc 33.3 % (32.0-36.0); Mean Corpuscular Hemoglobin 30.2 pg (27.0-34.0); Mean Corpuscular Volume 90.5 fL (80.0-100.0); Mean Platelet Volume 7.3 fL (7.0-11.0); Mono # (Auto) 0.4 th/mm3 (0.0-0.9); Neut # (Auto) 7.6 th/mm3 (1.8-7.7); Neut % (Auto) 75.6 % (16.0-70.0); Platelet Count 446 th/mm3 (150-450); Red Blood Count 3.97 mil/mm3 (4.00-5.30); Red Cell Distribution Width 14.1 % (11.6-17.2); White Blood Count 10.1 th/mm3 (4.0-11.0)
[2018-07-01 10:42] LABS: Bilirubin,Urine Negative (Negative); Clarity,Urine Clear (Clear); Color,Urine Yellow (Yellw/Straw); Glucose,Urine (UA) Negative (Negative); Leukocyte Esterase,Urine Negative (Negative); Nitrite,Urine Negative (Negative); PH,Urine 7.5 (5.0-8.5)
[2018-07-01 10:47] LABS: Squamous Epithelial Cell,Urine 0-5 /hpf (0-5)
[2018-07-01] MEDS ORDERED: Morphine Inj 4 MG/ML Vial IV.PUSH ONE ×2 (11:02→14:19)
[2018-07-01 11:17] LABS: Chloride 109 meq/L (98-107); Potassium 3.4 meq/L (3.5-5.1); Sodium 141 meq/L (136-145)
[2018-07-01 11:22] LABS: Albumin 2.9 g/dL (3.4-5.0); Anion Gap 12 meq/L (5-15); Blood Urea Nitrogen 7 mg/dL (7-18); Carbon Dioxide 20.2 meq/L (21.0-32.0); Glucose,Random 91 mg/dL (74-106); Lipase 58 U/L (73-393)
[2018-07-01 11:24] LABS: Aspartate Aminotransferase 17 U/L (15-37)
[2018-07-01 11:25] LABS: Alanine Aminotransferase 12 U/L (10-53); Glomerular Filtration Rate 80 mL/min (>89)
[2018-07-01 11:26] LABS: Total Protein 6.5 g/dL (6.4-8.2)
[2018-07-01 11:30] LABS: Alkaline Phosphatase 75 U/L (45-117)
[2018-07-01 11:35] LABS: Lymphocytes 15 % (9-44); Monocytes 3 % (0-8)
[2018-07-01 11:36] LABS: Platelet Estimate Normal (Normal); Platelet Morphology Normal (Normal); RBC Morphology Normal (Normal)
--- NOTE | 2018-07-01 12:33 | CT ---
EXAM DATE: 07/01/2018 12:03 PM EDT AGE/SEX: 77 years / Female INDICATIONS: Left lower quadrant and left flank pain. CLINICAL DATA: This is the patient's initial encounter. Patient reports that signs and symptoms have been present for 1 month and indicates a pain score of 10/10. MEDICAL/SURGICAL HISTORY: Carcinoma, colon. Diabetes. Hypertension. Hysterectomy. Colon rese ction. Cholecystectomy. ORAL CONTRAST: No oral contrast ingested. RADIATION DOSE: 4.64 CTDI (mGy) COMPARISON: POI, CT ABDOMEN AND PELVIS W AND W/O CONTRAST, 02/15/2018. . TECHNIQUE: Multiple contiguous axial images were obtained through the abdomen and pelvis following b olus infusion of 85 ml Omnipaque 350 (iohexol) nonionic water-soluble contrast as a single exam dos e. No oral contrast ingested. Using automated exposure control and adjustment of the mA and/or kV ac cording to patient size, radiation dose was kept as low as reasonably achievable to obtain optimal di agnostic quality images. DICOM format image data is available electronically for review and comparis on. FINDINGS: Diffuse atherosclerotic calcification of the aorta and iliac vessels. Lung bases are clear. There are degenerative changes of the spine. Trace pericardial fluid. The patient is status post cholecystecto my with surgical clips at the gallbladder fossa, and mild dilatation of the intrahepatic biliary tree . The common bile duct is also dilated up to 12 mm and tapers as it approaches the ampulla. Haq cat heter is noted within the urinary bladder which contains air. Spleen, pancreas, adrenal glands, left kidney unremarkable. There is a cyst at the lower pole of the right kidney measuring 2.1 cm. Examinat ion demonstrates decompressed terminal ileum and a transition point in the right lower quadrant, prox imal to which there are dilated loops of small bowel seen up to 3.7 cm. There is some mesenteric stra nding and trace mesenteric fluid identified. CONCLUSION: 1. The findings are concerning for small bowel obstruction with dilated loops of small intestine, an d transition point in the right lower quadrant with decompressed distal ileum. 2. Atherosclerosis. 3. Right renal cyst. Electronically signed by: Daniel Ness MD 07/01/2018 12:32 PM EDT
[2018-07-01] MEDS ORDERED: Benzocaine 20% Oral Spray 60 ML Can OROPHARYNG ONE (13:07)
[2018-07-01] MEDS: KCL 20 mEq/D5W/NaCl 0.9% Inj 1,000 ML IV.CONT SCH (15:47)
[2018-07-01] MEDS: Pantoprazole Inj 40 MG Vial IV.PUSH SCH (15:47)
--- NOTE | 2018-07-01 18:25 | P.HPIM ---
History of Present Illness Primary Care Physician: Watson Salter MD History of Present Illness: Patient is 77 yo woman with past hx of dm 2, , HTN, hyperlipidemia, osteoarthritis and hx of colorectal cancer. According to pt and family she has had intermittent abdomen pains for a year. She has undergone egd and colonoscopy w/out clear identification. She has seen GI for evaluation and also 2 CT scans including angiogram w/out any conclusion. She now presents to [place] ED and found to have sbo with transition in rlq. She has an NGT and is seen tonight by general surgery. 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 This includes certification that hospital inpatient services are reasonable and necessary and in the case of services not specified as inpatient-only under 42 CFR 419.22(n), that they are appropriately provided as inpatient services in accordance to with the 2-midnight benchmark under 43 CFR 412.3(e) Estimated Total Length of Stay (Days): 3 Plans for Post Hospital Care: Not yet determined Review of Systems abdomen pain PMFSH - History History Provided By: Patient, Rib Puller / EMT - Medical History Medical History: Medical History (Last Reviewed 07/06/18 @ 08:19 by Karthikeyan Sifuentes) Colon cancer Dementia Diabetes H/O: hysterectomy High cholesterol Hypertension Hypothyroid - Surgical History Surgical History: Surgical History (Last Reviewed 07/06/18 @ 07:44 by Edwina Braxton) History of partial colectomy Hx of cholecystectomy Hx of tonsillectomy - Tobacco History Smoking Status: Former smoker - Alcohol History How Often Do You Have a Drink Containing Alcohol: Never - Substance Use History Substance History: No History of Abuse - Travel History Recent Travel in the [place] Within the Last 8 Weeks: No Recent Travel Out of the Country Within the Last 8 Weeks: No - Immunization History Tetanus Immunization: Unsure Medications and Allergies Active Medications: Active Medications Enalaprilat (Vasotec Inj) 2.5 mg IV.PUSH Q6H PRN PRN Reason: sbp > 170 Potassium Chloride/Dextrose/Sod Cl (D5w/Ns + Kcl 20 Meq Inj) 1,000 mls @ 84 mls /hr IV.CONT .[id number] [facility] Last Admin: 07/01/18 15:47 Dose: 84 mls/hr Morphine Sulfate (Morphine Inj) 2 mg IV.PUSH Q3H PRN PRN Reason: pain 3-10 Ondansetron HCl (Zofran Inj) 4 mg IV.PUSH Q6H PRN PRN Reason: n/v Pantoprazole Sodium (Protonix Inj) 40 mg IV.PUSH Q24H [facility] Last Admin: 07/01/18 15:47 Dose: 40 mg Sodium Chloride (Ns Flush) 2 ml IV.FLUSH PRN PRN PRN Reason: FLUSH AFTER USING IV ACCESS Allergies Allergy/AdvReac Type Severity Reaction Status Date / Time meperidine Allergy Severe Psychosis Verified 07/01/18 10:43 tetanus immune globulin Allergy Severe SWELLING Verified 07/01/18 10:43 adhesive Allergy Intermediate BLISTERS Verified 07/01/18 10:43 Home Medications Medication Instructions Recorded Confirmed Type aspirin-dipyridamole 1 cap PO DAILY 07/01/18 07/01/18 History cholecalciferol (vitamin D3) 5,000 unit PO DAILY 07/01/18 07/01/18 History donepezil 5 mg PO DAILY 07/01/18 07/01/18 History escitalopram oxalate [Lexapro] 10 mg PO DAILY 07/01/18 07/01/18 History levothyroxine [Synthroid] 75 mcg PO DAILY 07/01/18 07/01/18 History lisinopril 2.5 mg PO DAILY 07/01/18 07/01/18 History meloxicam 7.5 mg PO DAILY 07/01/18 07/01/18 History metformin 250 mg PO BID 07/01/18 07/01/18 History pantoprazole [Protonix] 40 mg PO BID 07/01/18 07/01/18 History simvastatin 40 mg PO QPM 07/01/18 07/01/18 History tramadol 50 mg PO Q6HR 07/01/18 07/01/18 History trazodone 50 mg PO HS 07/01/18 07/01/18 History Exam Vital signs: Vital Signs 07/01/18 10:05 07/01/18 11:10 07/01/18 13:40 Temperature 98.5 F Pulse Rate 72 74 88 Respiratory Rate 18 18 20 Blood Pressure 141/71 H 160/77 H 149/70 H Pulse Oximetry 99 100 98 07/01/18 14:40 07/01/18 16:40 Temperature Pulse Rate 78 84 Respiratory Rate 16 18 Blood Pressure 145/67 H 128/62 Pulse Oximetry 97 98 Intake & Output 06/30/18 07/01/18 07/01/18 18:59 06:59 18:59 Intake Total 1000 / 1000 Balance 1000 / 1000 Weight 47.7 kg Intake: IV 1000 / 1000 NS Inj 1,000 ML @ 100 mls/hr IV 1000 / 1000 .CONT .Q10H ONE Rx#:[id number] heart reg lung cta abd no bs/mild diffuse tenderness and ngt to suction ext no edema Results - Labs CBC & Chem 7: 07/05/18 06:40 07/05/18 06:40 Labs: Short CBC 07/01/18 Range/Units 10:33 WBC 10.1 (4.0-11.0) th/mm3 Hgb 12.0 (11.6-15.3) gm/dL Hct 35.9 (35.0-46.0) % Plt Count 446 (150-450) th/mm3 BMP 07/01/18 10:33 Sodium 141 Potassium 3.4 L Chloride 109 H Carbon Dioxide 20.2 L BUN 7 Creatinine 0.71 Calcium 8.0 L Liver Function 07/01/18 Range/Units 10:33 Total Bilirubin 0.5 (0.2-1.0) mg/dL AST 17 (15-37) U/L ALT 12 (10-53) U/L Alkaline Phosphatase 75 (45-117) U/L Albumin 2.9 L (3.4-5.0) g/dL Urine 07/01/18 Range/Units 10:33 Urine Color Yellow (Yellw/Straw) Urine Clarity Clear (Clear) Urine pH 7.5 (5.0-8.5) Ur Specific [place] 1.010 (1.002-1.035) Urine Protein Negative (Neg-Trace) mg/dL Urine Glucose (UA) Negative (Negative) mg/dL - Imaging Impressions Abdomen/Pelvis CT 07/01/18 10:31 CONCLUSION: 1. The findings are concerning for small bowel obstruction with dilated loops of small intestine, and transition point in the right lower quadrant with decompressed distal ileum. 2. Atherosclerosis. 3. Right renal cyst. Caprini VTE Risk Assessment Caprini VTE Risk Assessment: Moderate/High Risk (score >= 2) Caprini Risk Assessment Model: Point Value = 1 Point Value = 2 Point Value = 3 Point Value = 5 Age 41-60 Minor surgery BMI > 25 kg/m2 Swollen legs Varicose veins or History of unexplained or recurrent spontaneous Oral contraceptives or hormone replacement Sepsis (< 1 month) Serious lung disease, including pneumonia (< 1 month) Abnormal pulmonary function Acute myocardial infarction Congestive heart failure (< 1 month) History of inflammatory bowel disease Medical patient at bed rest Age 61-74 Arthroscopic surgery Major open surgery (> 45 min) Laparoscopic surgery (> 45 min) Malignancy Confined to bed (> 72 hours) Immobilizing plaster cast Central venous access Age >= 75 History of VTE Family history of VTE Factor V Leiden Prothrombin [id number] Lupus anticoagulant Anticardiolipin antibodies Elevated serum homocysteine Heparin-induced thrombocytopenia Other congenital or acquired thrombophilia Stroke (< 1 month) Elective arthroplasty Hip, pelvis, or leg fracture Acute spinal cord injury (< 1 month) Prophylaxis Regimen: Total Risk Factor Score Risk Level Prophylaxis Regimen 0-1 Low Early ambulation 2 Moderate Order ONE of the following: *Sequential Compression Device (SCD) *Heparin 5000 units SQ BID 3-4 Higher Order ONE of the following medications: *Heparin 5000 units SQ TID *Enoxaparin/Lovenox 40 mg SQ daily (WT < 150 kg, CrCl > 30 mL/min) *Enoxaparin/Lovenox 30 mg SQ daily (WT < 150 kg, CrCl > 10-29 mL/min) *Enoxaparin/Lovenox 30 mg SQ BID (WT < 150 kg, CrCl > 30 mL/min) AND/OR *Sequential Compression Device (SCD) 5 or more Highest Order ONE of the following medications: *Heparin 5000 units SQ TID (Preferred with Epidurals) *Enoxaparin/Lovenox 40 mg SQ daily (WT < 150 kg, CrCl > 30 mL/min) *Enoxaparin/Lovenox 30 mg SQ daily (WT < 150 kg, CrCl > 10-29 mL/min) *Enoxaparin/Lovenox 30 mg SQ BID (WT < 150 kg, CrCl > 30 mL/min) AND *Sequential Compression Device (SCD) Assessment and Plan - Assessment (1) Small bowel obstruction Code(s): K56.609 - Unspecified intestinal obstruction, unspecified as to partial versus complete obstruction Status: Acute Plan: - Assessment (1) Small bowel obstruction Code(s): K56.609 - Unspecified intestinal obstruction, unspecified as to partial versus complete obstruction Status: Acute Plan: SBO - Pt is a 77 y/o female with hx of rectal cancer, dementia, HTN, hyperlipidemia. - She presented to the [place] [facility] [place] with complaints of worsening abdominal pain. - This pain has apparently been present on and off for over a year but in the last 4 weeks it has been more persistent and severe. The pain involves the lower abdomen as well as the left flank area. - Abdomen/Pelvis CT (07/01/18): 1. The findings are concerning for small bowel obstruction with dilated loops of small intestine, and transition point in the right lower quadrant with decompressed distal ileum. 2. Atherosclerosis. 3. Right renal cyst. - Pt is NPO with NGT placed in the ED but not much output - General Surgery is consulted - IVF - Pt will cont ivf and ngt overnight. hold po meds and give prn iv pain and bp meds KUB in AM and if no better then consider diagnostic lap
[2018-07-02] MEDS ORDERED: Chlorhexidine Gluconate 2% 1 Pack (2 Cloths) TOPICAL ONE (00:39)
[2018-07-02] MEDS ORDERED: Sodium Chlor 0.9% Inj 500 ML IV.SIG SCH (01:00)
[2018-07-02] MEDS: Morphine Sulfate Inj 2 MG/ML Vial IV.PUSH PRN (01:17)
[2018-07-02] MEDS: KCL 20 mEq/D5W/NaCl 0.9% Inj 1,000 ML IV.CONT SCH ×2 (03:37→18:20)
--- NOTE | 2018-07-02 05:46 | XR ---
EXAM DATE: 07/02/2018 6:00 AM EDT AGE/SEX: 77 years / Female INDICATIONS: Abdominal distention. CLINICAL DATA: This is the patient's initial encounter. Patient reports that signs and symptoms have been present for 1 month and indicates a pain score of 10/10. MEDICAL/SURGICAL HISTORY: . Carcinoma, colon. Diabetes. Hypertension. . Hysterectomy. Colon re section. Cholecystectomy. COMPARISON: [facility] – [place], SMALL BOWEL SERIES W/GASTROGRAFIN, 05/16/2015. . FINDINGS: The abdominal bowel gas pattern is normal. Mild gaseous distention of bowel loops. Cholecystectomy c lips. Nasogastric tube with tip in stomach No abnormal masses, calcifications, or organomegaly is se en. Degenerative changes and scoliosis lumbar spine. CONCLUSION: Gaseous distention of bowel loops without obstruction. Electronically signed by: Dickson Morgan MD 07/02/2018 5:44 AM EDT
[2018-07-02 08:10] LABS: Activated Partial Thrombo Time 24.4 sec (24.3-30.1)
[2018-07-02 08:42] LABS: Anion Gap 6 meq/L (5-15); Blood Urea Nitrogen 7 mg/dL (7-18); Calcium 7.7 mg/dL (8.5-10.1); Carbon Dioxide 25.4 meq/L (21.0-32.0); Chloride 112 meq/L (98-107); Glomerular Filtration Rate Greater Than 89 mL/min (>89); Glucose,Random 111 mg/dL (74-106); Potassium 3.7 meq/L (3.5-5.1); Sodium 143 meq/L (136-145)
--- NOTE | 2018-07-02 11:16 | P.PNIM ---
Subjective Interval history: Pt reports that she is still having pain in the left side of her abdomen This pain has reportedly been present on and off for over a year. Pt had minimal output from her NGT overnight Nursing staff reports that she had a BM overnight, the pt does not recall this Physical Exam Vital signs: Vital Signs 07/01/18 11:10 07/01/18 13:40 07/01/18 14:40 Temperature Pulse Rate 74 88 78 Respiratory Rate 18 20 16 Blood Pressure 160/77 H 149/70 H 145/67 H Pulse Oximetry 100 98 97 07/01/18 16:40 07/01/18 20:00 07/02/18 00:00 Temperature 98.4 F 99.0 F Pulse Rate 84 75 80 Respiratory Rate 18 16 17 Blood Pressure 128/62 156/70 H 132/75 Pulse Oximetry 98 98 99 07/02/18 03:30 07/02/18 04:30 07/02/18 08:00 Temperature 98.5 F 98.6 F Pulse Rate 82 80 Respiratory Rate 17 18 Blood Pressure 170/76 H 142/70 H 125/76 Pulse Oximetry 95 95 Intake & Output 07/01/18 07/02/18 07/02/18 18:59 06:59 18:59 Intake Total 1000 / 1000 874 / 874 Output Total 100 / 100 Balance 1000 / 1000 774 / 774 Weight 47.7 kg 48.8 kg Intake: IV 1000 / 1000 874 / 874 D5W/NS + KCL 20 mEq Inj 1,000 874 / 874 ML @ 84 mls/hr IV.CONT .[id number] [facility] Rx#:[id number] NS Inj 1,000 ML @ 100 mls/hr IV 1000 / 1000 .CONT .Q10H ONE Rx#:[id number] Output: Gastric Drainage 100 / 100 Right Nare 100 / 100 Other: # Voids 4 # Incontinent Voids 3 Date of Last Bowel Movement 07/01/18 # Bowel Movements 1 Weight On Admission 47.7 kg Narrative: General: NAD, AAOx3 ENT: NGT in nare Chest: CTA Cardiac: Regular Abd: +BS, soft nondistended Ext: No edema - Urinary Catheter Management Indwelling Urethral Catheter Cath placed during this visit: yes Reason for continuing: Other continuation reason Insertion date: 07/01/18 Insertion time: 10:15 Results - Labs CBC & Chem 7: 07/01/18 10:33 07/02/18 07:04 Laboratory Results - last 24 hr 07/01/18 07/01/18 07/02/18 10:33 10:33 00:56 WBC Differential Manual diff final Seg Neuts % (Manual) 82 H Lymphocytes % (Manual) 15 Monocytes % (Manual) 3 Abs Neuts (Manual) 8.3 H Platelet Estimate Normal Platelet Morphology Normal RBC Morphology Normal PT INR APTT Sodium 141 Potassium 3.4 L Chloride 109 H Carbon Dioxide 20.2 L Anion Gap 12 BUN 7 Creatinine 0.71 Estimated GFR 80 L POC Glucose 100 Random Glucose 91 Calcium 8.0 L Total Bilirubin 0.5 AST 17 ALT 12 Alkaline Phosphatase 75 Total Protein 6.5 Albumin 2.9 L Lipase 58 L 07/02/18 07/02/18 07:04 07:04 WBC Differential Seg Neuts % (Manual) Lymphocytes % (Manual) Monocytes % (Manual) Abs Neuts (Manual) Platelet Estimate Platelet Morphology RBC Morphology PT 10.0 INR 1.0 APTT 24.4 Sodium 143 Potassium 3.7 Chloride 112 H Carbon Dioxide 25.4 Anion Gap 6 BUN 7 Creatinine 0.61 Estimated GFR Greater than 89 POC Glucose Random Glucose 111 H Calcium 7.7 L Total Bilirubin AST ALT Alkaline Phosphatase Total Protein Albumin Lipase - Imaging Impressions Abdomen/Pelvis CT 07/01/18 10:31 CONCLUSION: 1. The findings are concerning for small bowel obstruction with dilated loops of small intestine, and transition point in the right lower quadrant with decompressed distal ileum. 2. Atherosclerosis. 3. Right renal cyst. Abdomen X-Ray 07/02/18 06:00 CONCLUSION: Gaseous distention of bowel loops without obstruction. Assessment and Plan - Assessment (1) Small bowel obstruction Code(s): K56.609 - Unspecified intestinal obstruction, unspecified as to partial versus complete obstruction Status: Acute Plan: SBO - Pt is a 77 y/o female with hx of rectal cancer, dementia, HTN, hyperlipidemia. - [place] [facility] [place] with complaints of worsening abdominal pain. - This pain has apparently been present on and off for over a year but in the last 4 weeks it has been more persistent and severe. The pain involves the lower abdomen as well as the left flank area. - Abdomen/Pelvis CT (07/01/18): 1. The findings are concerning for small bowel obstruction with dilated loops of small intestine, and transition point in the right lower quadrant with decompressed distal ileum. 2. Atherosclerosis. 3. Right renal cyst. - Pt is NPO with NGT placed in the ED but not much output - General Surgery is consulted - IVF - Abdomen X-Ray (07/02/18): - Gaseous distention of bowel loops without obstruction. - Pt had a BM overnight. - SBFT is ordered for today. - Supportive care - Further recommendations as the case develops Left sided abdominal pain Weight loss Hx of rectal cancer Hx of Esophageal strictures Hx of collagenous colitis - Pt has had multiple EGDs with dilation (12/18/16, 08/09/17, 02/17/18) all with noted distal esophageal stricture which were dilated - Colonoscopy (12/18/16) with Dr. Moscoso --> Diverticulosis, and hemorrhoids. Pathology was negative. - Pt has had outpt CTs and CTA over the last year without any indication as the the case for her pain (2) LUQ abdominal pain Code(s): R10.12 - Left upper quadrant pain Status: Acute (3) Weight loss Code(s): R63.4 - Abnormal weight loss Status: Acute (4) Hx of malignant neoplasm of rectum Code(s): Z85.048 - Personal history of other malignant neoplasm of rectum, rectosigmoid junction, and anus Status: Acute
--- NOTE | 2018-07-02 16:56 | P.PNGS ---
Subjective Patient reports: no new complaints, pain is less, flatus, bowel movement Physical Exam Vital signs: Vital Signs 07/01/18 20:00 07/02/18 00:00 07/02/18 03:30 Temperature 98.4 F 99.0 F 98.5 F Pulse Rate 75 80 82 Respiratory Rate 16 17 17 Blood Pressure 156/70 H 132/75 170/76 H Pulse Oximetry 98 99 95 07/02/18 04:30 07/02/18 08:00 07/02/18 12:00 Temperature 98.6 F 98.5 F Pulse Rate 80 82 Respiratory Rate 18 17 Blood Pressure 142/70 H 125/76 123/60 Pulse Oximetry 95 97 07/02/18 16:00 Temperature 98.5 F Pulse Rate 79 Respiratory Rate 18 Blood Pressure 145/89 H Pulse Oximetry 98 Intake & Output 07/01/18 07/02/18 07/02/18 18:59 06:59 18:59 Intake Total 1000 / 1000 874 / 874 Output Total 100 / 100 Balance 1000 / 1000 774 / 774 Weight 47.7 kg 48.8 kg Intake: IV 1000 / 1000 874 / 874 D5W/NS + KCL 20 mEq Inj 1,000 874 / 874 ML @ 84 mls/hr IV.CONT .[id number] [facility] Rx#:[id number] NS Inj 1,000 ML @ 100 mls/hr IV 1000 / 1000 .CONT .Q10H ONE Rx#:[id number] Output: Gastric Drainage 100 / 100 Right Nare 100 / 100 Other: # Voids 4 # Incontinent Voids 3 Date of Last Bowel Movement 07/01/18 # Bowel Movements 1 Weight On Admission 47.7 kg - Constitutional no acute distress - Routine Abdominal Exam Present: soft, tenderness Comments: mild tenderness non distended - Urinary Catheter Management Indwelling Urethral Catheter Cath placed during this visit: yes Reason for continuing: Other continuation reason Insertion date: 07/01/18 Insertion time: 10:15 Results - Labs 07/01/18 10:33 07/02/18 07:04 Laboratory Results - last 24 hr 07/02/18 07/02/18 07/02/18 00:56 07:04 07:04 PT 10.0 INR 1.0 APTT 24.4 Sodium 143 Potassium 3.7 Chloride 112 H Carbon Dioxide 25.4 Anion Gap 6 BUN 7 Creatinine 0.61 Estimated GFR Greater than 89 POC Glucose 100 Random Glucose 111 H Calcium 7.7 L - Imaging Imaging: ITS Impressions Abdomen/Pelvis CT 07/01/18 10:31 CONCLUSION: 1. The findings are concerning for small bowel obstruction with dilated loops of small intestine, and transition point in the right lower quadrant with decompressed distal ileum. 2. Atherosclerosis. 3. Right renal cyst. Abdomen X-Ray 07/02/18 06:00 CONCLUSION: Gaseous distention of bowel loops without obstruction. Abdominal x-ray: pending, report reviewed Assessment and Plan - Assessment (1) Small bowel obstruction Code(s): K56.609 - Unspecified intestinal obstruction, unspecified as to partial versus complete obstruction Status: Acute - Plan Small bowel follow through pending ambulate start liquids pending result of SBFT
--- NOTE | 2018-07-02 17:17 | FL ---
EXAM DATE: 07/02/2018 12:00 AM EDT AGE/SEX: 77 years / Female INDICATIONS: Obstruction. CLINICAL DATA: This is the patient's subsequent encounter. Patient reports that signs and symptoms h ave been present for 1 month and indicates a pain score of 10/10. MEDICAL/SURGICAL HISTORY: . Carcinoma, colon. Diabetes. Hypertension. . Hysterectomy. Colon re section. Cholecystectomy. COMPARISON: C, ABDOMEN 1V KUB, 07/02/2018. . FLUORO TIME: 0 IMAGE COUNT: 6 CONTRAST: FINDINGS: Preliminary film is unremarkable. The stomach is grossly unremarkable. Examination of the small bowel demonstrates normal mucosal pattern involving the jejunum and ileum. There is no evidence of mass or obstruction. No intraluminal filling defects are identified. Small bowel transit time is normal at 45 minutes. Fluoroscopy of the abdomen and terminal ileum demonstrat es no abnormality. CONCLUSION: Unremarkable small bowel follow-through exam. No evidence for obstruction. Electronically signed by: Heath Herman MD 07/02/2018 5:15 PM EDT
[2018-07-02] MEDS ORDERED: Diatrizoate Meglum/Diatrizoate Sod Liq 120 ML Bottle (for RAD diag) PO ONE (17:18)
[2018-07-02] MEDS: Pantoprazole Inj 40 MG Vial IV.PUSH SCH (18:01)
--- NOTE | 2018-07-02 20:12 | ECG ---
Date Performed: 07/01/2018 Time Performed: 20:37:26 PTAGE: 77 years EKG: Sinus rhythm NORMAL ECG PREVIOUS TRACING : 06/28/2017 16.21 Since the previous tracing, no significant change noted DOCTOR: Simeon Jean-Baptiste Interpretating Date/Time 07/02/2018 20:11:12
[2018-07-03] MEDS: Morphine Sulfate Inj 2 MG/ML Vial IV.PUSH PRN ×2 (00:06→08:47)
[2018-07-03] MEDS: KCL 20 mEq/D5W/NaCl 0.9% Inj 1,000 ML IV.CONT SCH ×2 (08:52→19:24)
--- NOTE | 2018-07-03 10:00 | P.PNGS ---
Subjective Patient reports: no new complaints, pain is less, flatus Physical Exam Vital signs: Vital Signs 07/02/18 12:00 07/02/18 16:00 07/02/18 20:00 Temperature 98.5 F 98.5 F 98.5 F Pulse Rate 82 79 79 Respiratory Rate 17 18 18 Blood Pressure 123/60 145/89 H 135/83 Pulse Oximetry 97 98 98 07/03/18 00:00 07/03/18 04:00 07/03/18 08:00 Temperature 97.6 F 98.6 F 97.8 F Pulse Rate 82 80 69 Respiratory Rate 17 16 17 Blood Pressure 150/66 H 137/64 136/61 Pulse Oximetry 98 98 98 Intake & Output 07/02/18 07/03/18 07/03/18 18:59 06:59 18:59 Intake Total 1000 / 1000 1000 / 1000 Balance 1000 / 1000 1000 / 1000 Weight 48.6 kg Intake: IV 1000 / 1000 1000 / 1000 D5W/NS + KCL 20 mEq Inj 1,000 1000 / 1000 1000 / 1000 ML @ 84 mls/hr IV.CONT .[id number] [facility] Rx#:[id number] Other: # Voids 7 2 Date of Last Bowel Movement 07/02/18 # Bowel Movements 4 - Constitutional no acute distress - Routine Abdominal Exam Present: soft (non tender) - Urinary Catheter Management Indwelling Urethral Catheter Cath placed during this visit: yes Reason for continuing: Other continuation reason Insertion date: 07/01/18 Insertion time: 10:15 Results - Labs 07/01/18 10:33 07/02/18 07:04 - Imaging Imaging: ITS Impressions Abdomen/Pelvis CT 07/01/18 10:31 CONCLUSION: 1. The findings are concerning for small bowel obstruction with dilated loops of small intestine, and transition point in the right lower quadrant with decompressed distal ileum. 2. Atherosclerosis. 3. Right renal cyst. Small Bowel X-Ray 07/02/18 00:00 CONCLUSION: Unremarkable small bowel follow-through exam. No evidence for obstruction. Abdomen X-Ray 07/02/18 06:00 CONCLUSION: Gaseous distention of bowel loops without obstruction. Assessment and Plan - Assessment (1) Small bowel obstruction Code(s): K56.609 - Unspecified intestinal obstruction, unspecified as to partial versus complete obstruction Status: Acute Plan: Remove NGT start clear liquids advance to fulls if greer oob ambulate with assistance - Plan Small bowel follow through pending ambulate start liquids pending result of SBFT
--- NOTE | 2018-07-03 10:31 | P.PNIM ---
Subjective Interval history: flatus no abdomen pain Physical Exam Vital signs: Vital Signs 07/02/18 12:00 07/02/18 16:00 07/02/18 20:00 Temperature 98.5 F 98.5 F 98.5 F Pulse Rate 82 79 79 Respiratory Rate 17 18 18 Blood Pressure 123/60 145/89 H 135/83 Pulse Oximetry 97 98 98 07/03/18 00:00 07/03/18 04:00 07/03/18 08:00 Temperature 97.6 F 98.6 F 97.8 F Pulse Rate 82 80 69 Respiratory Rate 17 16 17 Blood Pressure 150/66 H 137/64 136/61 Pulse Oximetry 98 98 98 Intake & Output 07/02/18 07/03/18 07/03/18 18:59 06:59 18:59 Intake Total 1000 / 1000 1000 / 1000 Balance 1000 / 1000 1000 / 1000 Weight 48.6 kg Intake: IV 1000 / 1000 1000 / 1000 D5W/NS + KCL 20 mEq Inj 1,000 1000 / 1000 1000 / 1000 ML @ 84 mls/hr IV.CONT .[id number] [facility] Rx#:[id number] Other: # Voids 7 2 Date of Last Bowel Movement 07/02/18 # Bowel Movements 4 heart reg lung cta abd bs/nt/nd ext no edema ngt - Urinary Catheter Management Indwelling Urethral Catheter Cath placed during this visit: yes Reason for continuing: Other continuation reason Insertion date: 07/01/18 Insertion time: 10:15 Results - Labs CBC & Chem 7: 07/01/18 10:33 07/02/18 07:04 - Imaging Impressions Small Bowel X-Ray 07/02/18 00:00 CONCLUSION: Unremarkable small bowel follow-through exam. No evidence for obstruction. Assessment and Plan - Assessment (1) Small bowel obstruction Code(s): K56.609 - Unspecified intestinal obstruction, unspecified as to partial versus complete obstruction Status: Acute Plan: SBO - Pt is a 77 y/o female with hx of rectal cancer, dementia, HTN, hyperlipidemia. - She presented to the ED at [facility] on 07/01/18 with complaints of worsening abdominal pain. - This pain has apparently been present on and off for over a year but in the last 4 weeks it has been more persistent and severe. The pain involves the lower abdomen as well as the left flank area. - Abdomen/Pelvis CT (07/01/18): 1. The findings are concerning for small bowel obstruction with dilated loops of small intestine, and transition point in the right lower quadrant with decompressed distal ileum. 2. Atherosclerosis. 3. Right renal cyst. - Pt is NPO with NGT placed in the ED but not much output - General Surgery is consulted - IVF - Abdomen X-Ray (07/02/18): - Gaseous distention of bowel loops without obstruction. - Pt had a BM - SBFT no obstruction - Supportive care liquids and dc ngt resume some home meds. ambulate Left sided abdominal pain Weight loss Hx of rectal cancer Hx of Esophageal strictures Hx of collagenous colitis - Pt has had multiple EGDs with dilation (12/18/16, 08/09/17, 02/17/18) all with noted distal esophageal stricture which were dilated - Colonoscopy (12/18/16) with Dr. Moscoso --> Diverticulosis, and hemorrhoids. Pathology was negative. - Pt has had outpt CTs and CTA over the last year without any indication as the the case for her pain (2) LUQ abdominal pain Code(s): R10.12 - Left upper quadrant pain Status: Acute Plan: Pt has had multiple EGDs with dilation (12/18/16, 08/09/17, 02/17/18) all with noted distal esophageal stricture which were dilated Colonsocopy (12/18/16) with Dr. Moscoso --> Diverticulosis, and hemorrhoids. Pathology (3) Weight loss Code(s): R63.4 - Abnormal weight loss Status: Acute (4) Hx of malignant neoplasm of rectum Code(s): Z85.048 - Personal history of other malignant neoplasm of rectum, rectosigmoid junction, and anus Status: Acute
[2018-07-03] MEDS: traZODone 50 MG Tablet PO SCH (21:49)
[2018-07-04] MEDS: KCL 20 mEq/D5W/NaCl 0.9% Inj 1,000 ML IV.CONT SCH ×3 (03:24→15:54)
[2018-07-04] MEDS: Levothyroxine 75 MCG Tablet PO SCH (05:52)
[2018-07-04 08:10] LABS: Anion Gap 8 meq/L (5-15); Blood Urea Nitrogen 4 mg/dL (7-18); Carbon Dioxide 23.8 meq/L (21.0-32.0); Chloride 113 meq/L (98-107); Glomerular Filtration Rate Greater Than 89 mL/min (>89); Glucose,Random 82 mg/dL (74-106); Potassium 3.3 meq/L (3.5-5.1); Sodium 145 meq/L (136-145)
[2018-07-04] MEDS: Lisinopril 5 MG Tablet PO SCH (08:48)
[2018-07-04] MEDS: Escitalopram 10 MG Tablet PO SCH (08:49)
[2018-07-04] MEDS: Morphine Sulfate Inj 2 MG/ML Vial IV.PUSH PRN ×4 (11:05→21:02)
--- NOTE | 2018-07-04 13:04 | P.PNGS ---
Subjective Patient reports: pain is less, tolerating liquids well, flatus (some liquid BM with flatus in PM.) Physical Exam Vital signs: Vital Signs 07/03/18 15:55 07/03/18 20:00 07/04/18 00:00 Temperature 98.7 F 98.5 F 97.6 F Pulse Rate 72 68 71 Respiratory Rate 17 17 17 Blood Pressure 156/63 H 141/65 H 133/63 Pulse Oximetry 98 97 96 07/04/18 08:00 07/04/18 11:00 Temperature 98.2 F 98.7 F Pulse Rate 54 L 68 Respiratory Rate 16 18 Blood Pressure 129/60 151/76 H Pulse Oximetry 96 97 Intake & Output 07/03/18 07/04/18 07/04/18 18:59 06:59 18:59 Intake Total 800 / 800 720 / 720 Balance 800 / 800 720 / 720 Weight 48 kg Intake: Oral 800 / 800 720 / 720 Other: # Voids 5 3 Date of Last Bowel Movement 07/02/18 07/02/18 07/03/18 - Constitutional no acute distress - Routine Neck Exam Present: supple - Routine Respiratory Exam Present: CTA bilaterally - Routine Cardiovascular Exam Present: RRR, S1, S2 - Routine Abdominal Exam Present: soft, tenderness, distended - Urinary Catheter Management Indwelling Urethral Catheter Cath placed during this visit: yes Reason for continuing: Other continuation reason Insertion date: 07/01/18 Insertion time: 10:15 Results - Labs 07/01/18 10:33 07/04/18 07:11 Laboratory Results - last 24 hr 07/04/18 07:11 Sodium 145 Potassium 3.3 L Chloride 113 H Carbon Dioxide 23.8 Anion Gap 8 BUN 4 L Creatinine 0.51 Estimated GFR Greater than 89 Random Glucose 82 Calcium 8.0 L - Imaging Imaging: ITS Impressions Abdomen/Pelvis CT 07/01/18 10:31 CONCLUSION: 1. The findings are concerning for small bowel obstruction with dilated loops of small intestine, and transition point in the right lower quadrant with decompressed distal ileum. 2. Atherosclerosis. 3. Right renal cyst. Small Bowel X-Ray 07/02/18 00:00 CONCLUSION: Unremarkable small bowel follow-through exam. No evidence for obstruction. Abdomen X-Ray 07/02/18 06:00 CONCLUSION: Gaseous distention of bowel loops without obstruction. Assessment and Plan - Assessment (1) Small bowel obstruction Code(s): K56.609 - Unspecified intestinal obstruction, unspecified as to partial versus complete obstruction Status: Acute Plan: Remove NGT Tolerating full liquid, advance diet oob ambulate with assistance Start MOM, and dulcolax 2V abdominal x ray today Observe, hold off on surgery for now. - Plan Small bowel follow through negative Code Status: full Discussed Condition With: patient
--- NOTE | 2018-07-04 14:25 | P.PNIM ---
Subjective Interval history: Pt tolerating liquid diet. Pt's son is a physician in [place] & requesting GI evaluation for chronic abdominal pain. Physical Exam Vital signs: 07/04/18 08:00 07/04/18 11:00 Temperature 98.2 F 98.7 F Pulse Rate 54 L 68 Respiratory Rate 16 18 Blood Pressure 129/60 151/76 H Pulse Oximetry 96 97 Narrative: General: NAD, AAOx3 Chest: CTA Cardiac: Regular Abd: +BS, soft nondistended Ext: No edema - Urinary Catheter Management Indwelling Urethral Catheter Cath placed during this visit: yes Reason for continuing: Other continuation reason Insertion date: 07/01/18 Insertion time: 10:15 Results - Labs CBC & Chem 7: 07/05/18 06:40 07/05/18 06:40 Assessment and Plan - Assessment (1) Small bowel obstruction Code(s): K56.609 - Unspecified intestinal obstruction, unspecified as to partial versus complete obstruction Status: Acute Plan: SBO - Pt is a 77 y/o female with hx of rectal cancer, dementia, HTN, hyperlipidemia. - She presented to the ED at [facility] [place]/01/18 with complaints of worsening abdominal pain. - This pain has apparently been present on and off for over a year but in the last 4 weeks it has been more persistent and severe. The pain involves the lower abdomen as well as the left flank area. - Abdomen/Pelvis CT (07/01/18): 1. The findings are concerning for small bowel obstruction with dilated loops of small intestine, and transition point in the right lower quadrant with decompressed distal ileum. 2. Atherosclerosis. 3. Right renal cyst. - Pt is NPO with NGT placed in the ED but not much output - General Surgery is consulted - IVF - Abdomen X-Ray (07/02/18): - Gaseous distention of bowel loops without obstruction. - Pt had a BM - SBFT no obstruction - Supportive care - liquid diet - case d/w General Surgery (07/04/18), Dr. Castillo. - Pt's son, Alexandreayeimyshital, requesting GI consultation. - SCDs for DVT prophylaxis - supportive care. - anticipate d/c in next 1-2 days. Left sided abdominal pain Weight loss Hx of rectal cancer Hx of Esophageal strictures Hx of collagenous colitis - Pt has had multiple EGDs with dilation (12/18/16, 08/09/17, 02/17/18) all with noted distal esophageal stricture which were dilated - Colonoscopy (12/18/16) with Dr. Moscoso --> Diverticulosis, and hemorrhoids. Pathology was negative. - Pt has had outpt CTs and CTA over the last year without any indication as the the case for her pain (2) LUQ abdominal pain Code(s): R10.12 - Left upper quadrant pain Status: Acute Plan: Pt has had multiple EGDs with dilation (12/18/16, 08/09/17, 02/17/18) all with noted distal esophageal stricture which were dilated Colonsocopy (12/18/16) with Dr. Moscoso --> Diverticulosis, and hemorrhoids. Pathology (3) Weight loss Code(s): R63.4 - Abnormal weight loss Status: Acute (4) Hx of malignant neoplasm of rectum Code(s): Z85.048 - Personal history of other malignant neoplasm of rectum, rectosigmoid junction, and anus Status: Acute
--- NOTE | 2018-07-04 15:20 | XR ---
EXAM DATE: 07/04/2018 1:18 PM EDT AGE/SEX: 77 years / Female INDICATIONS: Lower abdominal pain, obstruction. CLINICAL DATA: This is the patient's initial encounter. Patient reports that signs and symptoms have been present for 1 month and indicates a pain score of 8/10. MEDICAL/SURGICAL HISTORY: None. Cholecystectomy. COMPARISON: C, SMALL BOWEL W GASTROGRAFIN, 07/02/2018. . FINDINGS: Air is seen throughout the colon with several colonic air-fluid levels. There are no significantly di lated small bowel loops. Minimal residual contrast is noted in the very distal colon and rectum from patient's small bowel follow-through exam performed 2 days ago. No gross pneumatosis or free air. Vis ualized lung bases are clear. Degenerative changes of the lower lumbar spine. CONCLUSION: 1. Nonobstructive bowel gas pattern. Electronically signed by: Herminio Leyva MD 07/04/2018 3:19 PM EDT
--- NOTE | 2018-07-04 15:52 | P.CONGI ---
History of Present Illness Consult date: 07/04/18 Consult reason: Chronic abdominal pain with weight loss. Chief complaint: Small bowel obstruction History of Present Illness: This patient is a 77-year-old female who was admitted to [facility] on 07/01/2018. Patient's medical history significant for colon cancer, dementia , diabetes, hyperlipidemia, hypertension, Alzheimer's and hypothyroidism. Patient also has history of esophageal strictures as well as collagenous colitis. Surgical history including partial colectomy, cholecystectomy, hysterectomy and tonsillectomy. Patient came in complaining of abdominal pain. Patient states that the pain has been chronic for some time however it has been constant and more severe over the last 4-week.. Patient states that the pain starts in her lower abdomen mid lower abdomen, and radiates to her epigastrium as well as her left flank area and up into the left side of chest. Patient denies vomiting and does report frequent nausea. She denies fever or chills, diarrhea, constipation. She states she has had a loss of appetite for 6 -9 months whereby she has lost what she believes to be an average of about 30 pounds over that timeframe. Patient reports being treated for cancer of the colon/rectum 18 years ago where she underwent a partial colectomy followed by chemotherapy.(07/01) CT abdomen and pelvis revealed the following--> The findings are concerning for small bowel obstruction with dilated loops of small intestine, and transition point in the right lower quadrant with decompressed distal ileum. Atherosclerosis. Right renal cyst. General surgery was consulted to see patient, NG tube was placed. (07/04) abdominal x-ray revealed the following--> .Nonobstructive bowel gas pattern. As per general surgery NG tube was discontinued and patient has been tolerating clear liquids well. Our practice has been consulted to evaluate patient's complaint of chronic abdominal pain as well as unintentional weight loss of an estimated 30 pounds over the last 6-9 months. Again patient reports increasing abdominal pain over the last 4 weeks. She describes this pain as sharp, constant, and rates same as 8 out of 10 at this time. She denies any nausea or vomiting at this time and states that she is able to tolerate liquids without any difficulty. Of note patient reporting difficulty swallowing solid food. She denies choking or coughing but does state that the food "moves slowly". Patient has had multiple EGDs with dilation most recent being February 2018. Patient denies use of alcohol but does report that she smokes 6 cigarettes a day. Patient endorses that her son is a family practice physician in the [facility] and is very concerned in reference to her weight loss, decreased appetite, and feeling full easily. Last colonoscopy done December 2016 revealed diverticulosis and hemorrhoids with negative pathology <Chela Hines - Last Filed: 07/04/18 15:20> Review of Systems All other systems reviewed negative except as stated in HPI <Chela Hines - Last Filed: 07/04/18 15:20> PMFSH - History History Provided By: Patient - Medical History Medical History: Medical History (Last Reviewed 07/04/18 @ 08:14 by Nedra Warner) Colon cancer Dementia Diabetes H/O: hysterectomy High cholesterol Hypertension Hypothyroid - Surgical History Surgical History: Surgical History (Last Reviewed 07/04/18 @ 08:14 by Nedra Warner) History of partial colectomy Hx of cholecystectomy Hx of tonsillectomy - Tobacco History Second Hand Smoke Exposure: Yes Tobacco Use In Past 30 Days: Yes Smoking Status: Current some day smoker Tobacco Type: Cigarettes - Alcohol History How Often Do You Have a Drink Containing Alcohol: Never - Substance Use History Substance History: No History of Abuse - Travel History Recent Travel in the [place] Within the Last 8 Weeks: No Recent Travel Out of the Country Within the Last 8 Weeks: No - Immunization History Tetanus Immunization: Unsure Hx Influenza Vaccine This Season: Yes <Chela Hines - Last Filed: 07/04/18 15:20> - Medical History Medical History: Medical History (Last Reviewed 07/04/18 @ 08:14 by Nedra Warner) Colon cancer Dementia Diabetes H/O: hysterectomy High cholesterol Hypertension Hypothyroid - Surgical History Surgical History: Surgical History (Last Reviewed 07/04/18 @ 08:14 by Nedra Warner) History of partial colectomy Hx of cholecystectomy Hx of tonsillectomy <Jerry Whitney - Last Filed: 07/04/18 22:39> Medications and Allergies Active Medications: Active Medications Atorvastatin Calcium (Lipitor) 20 mg PO QPM [facility] Last Admin: 07/03/18 19:24 Dose: Not Given Bisacodyl (Dulcolax Supp) 10 mg RECTAL DAILY [facility] Donepezil HCl (Aricept) 5 mg PO DAILY [facility] Last Admin: 07/04/18 08:49 Dose: 5 mg Enalaprilat (Vasotec Inj) 2.5 mg IV.PUSH Q6H PRN PRN Reason: sbp > 170 Last Admin: 07/02/18 03:39 Dose: 2.5 mg Escitalopram Oxalate (Lexapro) 10 mg PO DAILY [facility] Last Admin: 07/04/18 08:49 Dose: 10 mg Potassium Chloride/Dextrose/Sod Cl (D5w/Ns + Kcl 20 Meq Inj) 1,000 mls @ 84 mls /hr IV.CONT .[id number] [facility] Last Admin: 07/04/18 11:05 Dose: 84 mls/hr Levothyroxine Sodium (Synthroid) 75 mcg PO DAILY@0600 [facility] Last Admin: 07/04/18 05:52 Dose: 75 mcg Lisinopril (Prinivil) 2.5 mg PO DAILY [facility] Last Admin: 07/04/18 08:48 Dose: 2.5 mg Morphine Sulfate (Morphine Inj) 2 mg IV.PUSH Q3H PRN PRN Reason: pain 3-10 Last Admin: 07/04/18 13:50 Dose: 2 mg Ondansetron HCl (Zofran Inj) 4 mg IV.PUSH Q6H PRN PRN Reason: n/v Pantoprazole Sodium (Protonix) 40 mg PO BID [facility] Last Admin: 07/04/18 08:49 Dose: 40 mg Sodium Chloride (Ns Flush) 2 ml IV.FLUSH PRN PRN PRN Reason: FLUSH AFTER USING IV ACCESS Last Admin: 07/04/18 08:49 Dose: 2 ml Trazodone HCl (Desyrel) 50 mg PO HS [facility] Last Admin: 07/03/18 21:49 Dose: 50 mg <Chela Hines - Last Filed: 07/04/18 15:20> Active Medications: Active Medications Al Hydroxide/Mg Hydroxide (Milk Of Magnesia Liq) 15 ml PO Q6H [facility] Last Admin: 07/04/18 21:07 Dose: 15 ml Atorvastatin Calcium (Lipitor) 20 mg PO QPM [facility] Last Admin: 07/04/18 17:52 Dose: 20 mg Bisacodyl (Dulcolax Supp) 10 mg RECTAL DAILY [facility] Last Admin: 07/04/18 18:00 Dose: 10 mg Donepezil HCl (Aricept) 5 mg PO DAILY [facility] Last Admin: 07/04/18 08:49 Dose: 5 mg Enalaprilat (Vasotec Inj) 2.5 mg IV.PUSH Q6H PRN PRN Reason: sbp > 170 Last Admin: 07/02/18 03:39 Dose: 2.5 mg Escitalopram Oxalate (Lexapro) 10 mg PO DAILY [facility] Last Admin: 07/04/18 08:49 Dose: 10 mg Potassium Chloride/Dextrose/Sod Cl (D5w/Ns + Kcl 20 Meq Inj) 1,000 mls @ 84 mls /hr IV.CONT .[id number] [facility] Last Admin: 07/04/18 15:54 Dose: Not Given Levothyroxine Sodium (Synthroid) 75 mcg PO DAILY@0600 [facility] Last Admin: 07/04/18 05:52 Dose: 75 mcg Lisinopril (Prinivil) 2.5 mg PO DAILY [facility] Last Admin: 07/04/18 08:48 Dose: 2.5 mg Morphine Sulfate (Morphine Inj) 2 mg IV.PUSH Q3H PRN PRN Reason: pain 3-10 Last Admin: 07/04/18 21:02 Dose: 2 mg Ondansetron HCl (Zofran Inj) 4 mg IV.PUSH Q6H PRN PRN Reason: n/v Pantoprazole Sodium (Protonix) 40 mg PO BID [facility] Last Admin: 07/04/18 21:07 Dose: 40 mg Sodium Chloride (Ns Flush) 2 ml IV.FLUSH PRN PRN PRN Reason: FLUSH AFTER USING IV ACCESS Last Admin: 07/04/18 08:49 Dose: 2 ml Trazodone HCl (Desyrel) 50 mg PO HS [facility] Last Admin: 07/04/18 21:07 Dose: 50 mg <Jerry Whitney E - Last Filed: 07/04/18 22:39> Allergies Allergy/AdvReac Type Severity Reaction Status Date / Time meperidine Allergy Severe Psychosis Verified 07/01/18 10:43 tetanus immune globulin Allergy Severe SWELLING Verified 07/01/18 10:43 adhesive Allergy Intermediate BLISTERS Verified 07/01/18 10:43 Fish Containing Products Allergy Intermediate RASH Verified 07/01/18 10:43 Home Medications Medication Instructions Recorded Confirmed Type aspirin-dipyridamole 1 cap PO DAILY 07/01/18 07/01/18 History cholecalciferol (vitamin D3) 5,000 unit PO DAILY 07/01/18 07/01/18 History donepezil 5 mg PO DAILY 07/01/18 07/01/18 History escitalopram oxalate [Lexapro] 10 mg PO DAILY 07/01/18 07/01/18 History levothyroxine [Synthroid] 75 mcg PO DAILY 07/01/18 07/01/18 History lisinopril 2.5 mg PO DAILY 07/01/18 07/01/18 History meloxicam 7.5 mg PO DAILY 07/01/18 07/01/18 History metformin 250 mg PO BID 07/01/18 07/01/18 History pantoprazole [Protonix] 40 mg PO BID 07/01/18 07/01/18 History simvastatin 40 mg PO QPM 07/01/18 07/01/18 History tramadol 50 mg PO Q6HR 07/01/18 07/01/18 History trazodone 50 mg PO HS 07/01/18 07/01/18 History Exam Vital signs: Vital Signs 07/03/18 15:55 07/03/18 20:00 07/04/18 00:00 Temperature 98.7 F 98.5 F 97.6 F Pulse Rate 72 68 71 Respiratory Rate 17 17 17 Blood Pressure 156/63 H 141/65 H 133/63 Pulse Oximetry 98 97 96 07/04/18 08:00 07/04/18 11:00 Temperature 98.2 F 98.7 F Pulse Rate 54 L 68 Respiratory Rate 16 18 Blood Pressure 129/60 151/76 H Pulse Oximetry 96 97 Intake & Output 07/03/18 07/04/18 07/04/18 18:59 06:59 18:59 Intake Total 800 / 800 720 / 720 Balance 800 / 800 720 / 720 Weight 48 kg Intake: Oral 800 / 800 720 / 720 Other: # Voids 5 3 Date of Last Bowel Movement 07/02/18 07/02/18 07/03/18 - Constitutional no acute distress - Routine HEENT Exam Head: Present: normocephalic - Routine Neck Exam Present: full ROM. Absent: lymphadenopathy - Routine Respiratory Exam Present: CTA bilaterally. Absent: accessory muscle use - Routine Cardiovascular Exam Present: S1, S2 - Routine Abdominal Exam Present: soft, normoactive bowel sounds, tenderness. Absent: distended, guarding, firm Comments: Patient reports mild generalized tenderness on palpation during - Routine Extremities Exam Present: full ROM, pulses intact. Absent: edema - Routine Skin Exam Present: dry, warm - Routine Neurological Exam Present: alert - Routine Psychiatric Exam Present: normal affect, cooperative <Chela Hines - Last Filed: 07/04/18 15:20> Vital signs: Vital Signs 07/04/18 00:00 07/04/18 08:00 07/04/18 11:00 Temperature 97.6 F 98.2 F 98.7 F Pulse Rate 71 54 L 68 Respiratory Rate 17 16 18 Blood Pressure 133/63 129/60 151/76 H Pulse Oximetry 96 96 97 07/04/18 16:00 07/04/18 20:00 Temperature 98.9 F 98.6 F Pulse Rate 60 73 Respiratory Rate 16 16 Blood Pressure 162/72 H 164/77 H Pulse Oximetry 97 97 Intake & Output 07/04/18 07/04/18 07/05/18 06:59 18:59 06:59 Intake Total 720 / 720 420 / 420 Balance 720 / 720 420 / 420 Weight 48 kg Intake: Oral 720 / 720 420 / 420 Other: # Voids 3 4 Date of Last Bowel Movement 07/02/18 07/03/18 # Bowel Movements 0 <Jerry Whitney E - Last Filed: 07/04/18 22:39> Results - Labs CBC & Chem 7: 07/01/18 10:33 07/04/18 07:11 Labs: Laboratory Results - last 24 hr 07/04/18 07:11 Sodium 145 Potassium 3.3 L Chloride 113 H Carbon Dioxide 23.8 Anion Gap 8 BUN 4 L Creatinine 0.51 Estimated GFR Greater than 89 Random Glucose 82 Calcium 8.0 L - Imaging Impressions Abdomen X-Ray 07/04/18 13:18 CONCLUSION: 1. Nonobstructive bowel gas pattern. <Chela Hines - Last Filed: 07/04/18 15:20> - Labs CBC & Chem 7: 07/01/18 10:33 07/04/18 07:11 Labs: Laboratory Results - last 24 hr 07/04/18 07:11 Sodium 145 Potassium 3.3 L Chloride 113 H Carbon Dioxide 23.8 Anion Gap 8 BUN 4 L Creatinine 0.51 Estimated GFR Greater than 89 Random Glucose 82 Calcium 8.0 L - Imaging Impressions Abdomen X-Ray 07/04/18 13:18 CONCLUSION: 1. Nonobstructive bowel gas pattern. <Jerry Whitney - Last Filed: 07/04/18 22:39> Assessment and Plan (1) LUQ abdominal pain Status: Acute Code(s): R10.12 - Left upper quadrant pain (2) Weight loss Status: Acute Code(s): R63.4 - Abnormal weight loss - Plan This patient is a 77-year-old female who was admitted to [facility] on 07/01/2018. Patient's medical history significant for colon cancer, dementia , diabetes, hyperlipidemia, hypertension, Alzheimer's and hypothyroidism. Patient also has history of esophageal strictures as well as collagenous colitis. Surgical history including partial colectomy, cholecystectomy, hysterectomy and tonsillectomy. Patient came in complaining of abdominal pain. Patient states that the pain has been chronic for some time however it has been constant and more severe over the last 4-week.. Patient states that the pain starts in her lower abdomen mid lower abdomen, and radiates to her epigastrium as well as her left flank area and up into the left side of chest. Patient denies vomiting and does report frequent nausea. She denies fever or chills, diarrhea, constipation.Denies any noted bleeding. She states she has had a loss of appetite for 6-9 months whereby she has lost what she believes to be an average of about 30 pounds over that timeframe. Patient reports being treated for cancer of the colon/rectum 18 years ago where she underwent a partial colectomy followed by chemotherapy.(07/01) CT abdomen and pelvis revealed the following--> The findings are concerning for small bowel obstruction with dilated loops of small intestine, and transition point in the right lower quadrant with decompressed distal ileum. Atherosclerosis. Right renal cyst. General surgery was consulted to see patient, NG tube was placed. ( 07/04) abdominal x-ray revealed the following--> .Nonobstructive bowel gas pattern. As per general surgery NG tube was discontinued and patient has been tolerating clear liquids well. Our practice has been consulted to evaluate patient's complaint of chronic abdominal pain as well as unintentional weight loss of an estimated 30 pounds over the last 6-9 months. Again patient reports increasing abdominal pain over the last 4 weeks. She describes this pain as sharp, constant, and rates same as 8 out of 10 at this time. She denies any nausea or vomiting at this time and states that she is able to tolerate liquids without any difficulty. Of note patient reporting difficulty swallowing solid food. She denies choking or coughing but does state that the food "moves slowly". Patient has had multiple EGDs with dilation most recent being February 2018. Patient denies use of alcohol but does report that she smokes 6 cigarettes a day. Patient endorses that her son is a family practice physician in the [facility] and is very concerned in reference to her weight loss, decreased appetite, and feeling full easily. Last colonoscopy done December 2016 revealed diverticulosis and hemorrhoids with negative pathology. Chronic abdominal pain CT abdomen and pelvis done on 07/01/18 results as noted above findings concerning for small bowel obstruction with dilated loops of small intestine. 07/04/2018 abdominal x-ray revealed nonobstructive bowel gas pattern. Patient continues to report lower abdominal pain that radiates to left flank and up into the left chest. Reporting chronic nausea after meals and sensation of feeling full after eating small amounts of food. NG tube has been removed and patient is tolerating clear liquids well. Of note, patient reports difficulty swallowing solid foods and meats. Noted history of multiple EGDs with dilation. Weight loss Patient reports unintended weight loss of about 30 pounds in the last 6-9 months timeframe. Patient has history of colorectal cancer treated with partial colectomy and chemotherapy in 1999. Last colonoscopy in 2016 revealed diverticulosis with hemorrhoids and negative pathology. Plan -Clear liquid diet -N.p.o. after midnight -Obtain consent for EGD and colonoscopy -GoLYTELY prep -Continue PPI -Monitor labs -Analgesic and antiemetic as per attending -Supportive care -Further recommendations to follow based on patient's status and findings This patient has been seen by myself and Dr. Whitney and this note is written on his behalf - Attending Attestation Dr. Whitney <Chela Hines - Last Filed: 07/04/18 15:20> (1) LUQ abdominal pain Status: Acute Code(s): R10.12 - Left upper quadrant pain (2) Weight loss Status: Acute Code(s): R63.4 - Abnormal weight loss - Plan Patient seen and examined Agree with above history and physical Continue with current supportive care Monitor labs Plan for an EGD with colonoscopy tomorrow <Jerry Whitney - Last Filed: 07/04/18 22:39>
[2018-07-04] MEDS: Bisacodyl 10 MG Supp RECTAL SCH (18:00)
[2018-07-04] MEDS ORDERED: Magnesium Citrate Liq 300 ML Bottle PO ONE (18:30)
[2018-07-04] MEDS: traZODone 50 MG Tablet PO SCH (21:07)
[2018-07-05] MEDS: Morphine Sulfate Inj 2 MG/ML Vial IV.PUSH PRN ×2 (03:00→08:12)
[2018-07-05] MEDS: KCL 20 mEq/D5W/NaCl 0.9% Inj 1,000 ML IV.CONT SCH ×2 (03:02→16:12)
[2018-07-05 06:56] LABS: Baso % (Auto) 0.4 % (0.0-2.0); Eos # (Auto) 0.1 th/mm3 (0.0-0.4); Eos % (Auto) 0.8 % (0.0-4.0); Hematocrit 34.6 % (35.0-46.0); Hemoglobin 11.5 gm/dL (11.6-15.3); Lymph # (Auto) 1.1 th/mm3 (1.0-4.8); Lymph % (Auto) 9.5 % (9.0-44.0); Mean Corpuscular HGB Conc 33.2 % (32.0-36.0); Mean Corpuscular Hemoglobin 30.1 pg (27.0-34.0); Mean Corpuscular Volume 90.7 fL (80.0-100.0); Mean Platelet Volume 6.5 fL (7.0-11.0); Mono # (Auto) 0.8 th/mm3 (0.0-0.9); Mono % (Auto) 7.3 % (0.0-8.0); Neut # (Auto) 9.5 th/mm3 (1.8-7.7); Platelet Count 401 th/mm3 (150-450); Red Blood Count 3.81 mil/mm3 (4.00-5.30); Red Cell Distribution Width 14.7 % (11.6-17.2); White Blood Count 11.6 th/mm3 (4.0-11.0)
[2018-07-05 07:22] LABS: Albumin 2.7 g/dL (3.4-5.0); Anion Gap 8 meq/L (5-15); Aspartate Aminotransferase 6 U/L (15-37); Blood Urea Nitrogen 6 mg/dL (7-18); Carbon Dioxide 30.8 meq/L (21.0-32.0); Chloride 106 meq/L (98-107); Glomerular Filtration Rate 87 mL/min (>89); Glucose,Random 134 mg/dL (74-106); Potassium 3.4 meq/L (3.5-5.1); Sodium 145 meq/L (136-145)
[2018-07-05 07:23] LABS: Alanine Aminotransferase 12 U/L (10-53)
[2018-07-05 07:25] LABS: Alkaline Phosphatase 104 U/L (45-117); Total Protein 6.3 g/dL (6.4-8.2)
[2018-07-05 07:34] LABS: Alpha Fetoprotein Tumor Marker 2.2 ng/mL (0.5-8.0)
[2018-07-05] MEDS: Escitalopram 10 MG Tablet PO SCH (08:06)
[2018-07-05] MEDS: Levothyroxine 75 MCG Tablet PO SCH (08:06)
[2018-07-05] MEDS: Lisinopril 5 MG Tablet PO SCH (08:10)
[2018-07-05] MEDS ORDERED: Metoprolol Tartrate 25 MG Tablet PO ONE (09:40)
[2018-07-05] MEDS ORDERED: Chlorhexidine Gluconate 2% 1 Pack (2 Cloths) TOPICAL ONE (09:40)
[2018-07-05] MEDS ORDERED: Sodium Chlor 0.9% Inj 500 ML IV.SIG SCH (10:00)
[2018-07-05] MEDS: Bisacodyl 10 MG Supp RECTAL SCH (11:17)
[2018-07-05] MEDS ORDERED: Lidocaine PF 1% Inj 5 ML Syringe OTHER ONE (12:10)
--- NOTE | 2018-07-05 13:03 | P.PCN ---
Date of procedure: 07/05/18 Pre-op diagnosis: Abdominal pain, weight loss, nausea Procedure: PROCEDURE PERFORMED EGD with biopsies followed by colonoscopy PROCEDURE: The procedure, risks and benefits were discussed with Patient/POA and informed consent was obtained. Anesthesia sedated Patient with Diprivan. Patient was placed in the left lateral decubitus position. EGD: The Pentax videoscope was introduced through the oropharynx and advanced to the second portion of the duodenum under direct visualization. Retroflexion was performed in the stomach. FINDINGS: The esophagus there was a small ulceration in the distal esophagus of unclear significance this was biopsied otherwise esophageal mucosa was unremarkable also noted at the GE junction was a mild Schatzki ring The stomach there was a mild nodularity in the cardia adjacent to the GE junction of unclear significance this was biopsied the gastric mucosa appeared to be also somewhat erythemic in a patchy fashion with no ulcerations or erosions antral biopsies were taken also for further evaluation also noted were some food residue suggestive of gastroparesis The duodenum this appeared to be unremarkable with normal limits Colonoscopy: The Pentax videoscope was introduced through the rectum and advanced to cecum where the ileocecal valve and appendiceal orifice were identified. Retroflexion was performed in the rectum. Colonic prep was fair to good FINDINGS: Colonic withdrawal time greater than 6 minutes. As the scope was slowly withdrawn colonic mucosa was carefully inspected the colonic mucosa appeared to be unremarkable and within normal limits all the way through there were some mild diverticuli in the sigmoid region retroflexion in the rectum was normal so his rectal examination ESTIMATED BLOOD LOSS: None SPECIMENS REMOVED: Esophageal and gastric biopsies COMPLICATIONS: None IMPRESSION: Small distal esophageal ulcer Mild Schatzki ring Nodule in the cardia Gastritis Food residue in the stomach suggestive of gastroparesis Diverticulosis PLAN: Await biopsies Obtain gastric emptying scan Avoid pain meds such as tramadol or narcotics so as to reduce effects on the stomach Most likely cause of nausea abdominal pain and weight loss is probable gastroparesis which may be secondary to her medication Suggest soft diet and nutritional supplements Anesthesia: MAC Surgeon: Jerry Whitney Condition: stable Disposition: floor
--- NOTE | 2018-07-05 15:57 | P.PNGS ---
Subjective Patient reports: no new complaints, tolerating liquids well (Multiple soft bowel movements overnight, not tolerating solids due to pain.), bowel movement, diarrhea Physical Exam Vital signs: Vital Signs 07/04/18 16:00 07/04/18 20:00 07/05/18 00:00 Temperature 98.9 F 98.6 F 98.4 F Pulse Rate 60 73 66 Respiratory Rate 16 16 16 Blood Pressure 162/72 H 164/77 H 159/72 H Pulse Oximetry 97 97 96 07/05/18 01:00 07/05/18 04:00 07/05/18 08:00 Temperature 98.6 F 98.5 F Pulse Rate 70 70 Respiratory Rate 17 16 20 Blood Pressure 164/73 H 152/71 H Pulse Oximetry 96 96 07/05/18 12:00 07/05/18 12:58 Temperature 98.3 F 98.5 F Pulse Rate 80 80 Respiratory Rate 18 18 Blood Pressure 141/63 H 132/86 Pulse Oximetry 96 95 Intake & Output 07/04/18 07/05/18 07/05/18 18:59 06:59 18:59 Intake Total 420 / 420 1000 / 1000 Balance 420 / 420 1000 / 1000 Weight 47.2 kg Intake: IV 1000 / 1000 D5W/NS + KCL 20 mEq Inj 1,000 1000 / 1000 ML @ 84 mls/hr IV.CONT .[id number] [facility] Rx#:[id number] Oral 420 / 420 Other: # Voids 4 2 Date of Last Bowel Movement 07/03/18 07/03/18 07/05/18 # Bowel Movements 0 2 2 - Routine Respiratory Exam Present: CTA bilaterally - Routine Cardiovascular Exam Present: RRR, S1, S2 - Routine Abdominal Exam Present: tenderness, distended Comments: hyper-resonant and painful RUQ and RLQ, mild guarding, hypoactive bowel sounds. - Urinary Catheter Management Indwelling Urethral Catheter Cath placed during this visit: yes Reason for continuing: Other continuation reason Insertion date: 07/01/18 Insertion time: 10:15 Results - Labs 07/05/18 06:40 07/05/18 06:40 Laboratory Results - last 24 hr 07/05/18 07/05/18 07/05/18 06:40 06:40 06:40 WBC 11.6 H RBC 3.81 L Hgb 11.5 L Hct 34.6 L MCV 90.7 MCH 30.1 MCHC 33.2 RDW 14.7 Plt Count 401 MPV 6.5 L Neut % (Auto) 82.0 H Lymph % (Auto) 9.5 Peach % (Auto) 7.3 Eos % (Auto) 0.8 Baso % (Auto) 0.4 Neut # (Auto) 9.5 H Lymph # (Auto) 1.1 Peach # (Auto) 0.8 Eos # (Auto) 0.1 Baso # (Auto) 0.0 WBC Differential . Differential Comment Auto diff final Sodium 145 Potassium 3.4 L Chloride 106 Carbon Dioxide 30.8 Anion Gap 8 BUN 6 L Creatinine 0.66 Estimated GFR 87 L Random Glucose 134 H Calcium 8.0 L Total Bilirubin 0.2 AST 6 L ALT 12 Alkaline Phosphatase 104 Total Protein 6.3 L Albumin 2.7 L Tumor Marker AFP 2.2 Carcinoembryonic Ag 1.0 CA 19-9 Antigen 07/05/18 06:40 WBC RBC Hgb Hct MCV MCH MCHC RDW Plt Count MPV Neut % (Auto) Lymph % (Auto) Peach % (Auto) Eos % (Auto) Baso % (Auto) Neut # (Auto) Lymph # (Auto) Peach # (Auto) Eos # (Auto) Baso # (Auto) WBC Differential Differential Comment Sodium Potassium Chloride Carbon Dioxide Anion Gap BUN Creatinine Estimated GFR Random Glucose Calcium Total Bilirubin AST ALT Alkaline Phosphatase Total Protein Albumin Tumor Marker AFP Carcinoembryonic Ag CA 19-9 Antigen 19.3 - Imaging Imaging: ITS Impressions Abdomen/Pelvis CT 07/01/18 10:31 CONCLUSION: 1. The findings are concerning for small bowel obstruction with dilated loops of small intestine, and transition point in the right lower quadrant with decompressed distal ileum. 2. Atherosclerosis. 3. Right renal cyst. Small Bowel X-Ray 07/02/18 00:00 CONCLUSION: Unremarkable small bowel follow-through exam. No evidence for obstruction. Abdomen X-Ray 07/04/18 13:18 CONCLUSION: 1. Nonobstructive bowel gas pattern. Assessment and Plan - Assessment (1) Small bowel obstruction Code(s): K56.609 - Unspecified intestinal obstruction, unspecified as to partial versus complete obstruction Status: Acute Plan: Tolerating full liquid, advance diet as tolerated after procedure oob ambulate with assistance Continue MOM and dulcolax as needed EGD and colonoscopy today Observe, hold off on surgery for now.
--- NOTE | 2018-07-05 16:47 | P.PNIM ---
Subjective Interval history: Pt voices NO new complaints. Physical Exam Vital signs: 07/05/18 12:58 Temperature 98.5 F Pulse Rate 80 Respiratory Rate 18 Blood Pressure 132/86 Pulse Oximetry 95 Narrative: General: NAD, AAOx3 Chest: CTA Cardiac: Regular Abd: +BS, soft nondistended Ext: No edema - Urinary Catheter Management Indwelling Urethral Catheter Cath placed during this visit: yes Reason for continuing: Other continuation reason Insertion date: 07/01/18 Insertion time: 10:15 Results - Labs CBC & Chem 7: 07/05/18 06:40 07/05/18 06:40 Assessment and Plan - Assessment (1) Small bowel obstruction Code(s): K56.609 - Unspecified intestinal obstruction, unspecified as to partial versus complete obstruction Status: Acute Plan: SBO - Pt is a 77 y/o female with hx of rectal cancer, dementia, HTN, hyperlipidemia. - She presented [place] [facility] [place] with complaints of worsening abdominal pain. - This pain has apparently been present on and off for over a year but in the last 4 weeks it has been more persistent and severe. The pain involves the lower abdomen as well as the left flank area. - Abdomen/Pelvis CT (07/01/18): 1. The findings are concerning for small bowel obstruction with dilated loops of small intestine, and transition point in the right lower quadrant with decompressed distal ileum. 2. Atherosclerosis. 3. Right renal cyst. - NGT removed - comgmt with GI and General Surgery - Abdomen X-Ray (07/02/18): - Gaseous distention of bowel loops without obstruction. - SBFT (07/02/18) --> no obstruction - case d/w General Surgery (07/04/18), Dr. Castillo. - Pt's son, Dr. Lam, requesting GI consultation regarding weight loss. - Colonoscopy (07/05/18) with Dr. Whitney - Diverticulosis - EGD (07/05/18) with Dr. Whitney - Small distal esophageal ulcer - Mild Schatzki ring - Nodule in the cardia - Gastritis - Food residue in the stomach suggestive of gastroparesis - In reviewing results of pt's EGD, it should be noted that pt has been receiving IV morphine which could also contribute to delayed gastric motility - I agree with obtaining Gastric Emptying Study - stop narcotics - tylenol prn pain - Obtain GES on , Jul 07. Need 48 hours following anesthesia used for endoscopy prior to GES. - anticipate d/c to SNF vs home with C on Sunday 07/08 - SCDs for DVT prophylaxis - supportive care. Left sided abdominal pain Weight loss Hx of rectal cancer Hx of Esophageal strictures Hx of collagenous colitis - Pt has had multiple EGDs with dilation (12/18/16, 08/09/17, 02/17/18) all with noted distal esophageal stricture which were dilated - Colonoscopy (12/18/16) with Dr. Moscoso --> Diverticulosis, and hemorrhoids. Pathology was negative. - Pt has had outpt CTs and CTA over the last year without any indication as the the case for her pain (2) LUQ abdominal pain Code(s): R10.12 - Left upper quadrant pain Status: Acute Plan: Pt has had multiple EGDs with dilation (12/18/16, 08/09/17, 02/17/18) all with noted distal esophageal stricture which were dilated Colonsocopy (12/18/16) with Dr. Moscoso --> Diverticulosis, and hemorrhoids. Pathology (3) Weight loss Code(s): R63.4 - Abnormal weight loss Status: Acute (4) Hx of malignant neoplasm of rectum Code(s): Z85.048 - Personal history of other malignant neoplasm of rectum, rectosigmoid junction, and anus Status: Acute
[2018-07-05] MEDS: traZODone 50 MG Tablet PO SCH (21:43)
[2018-07-06] MEDS: Levothyroxine 75 MCG Tablet PO SCH (05:37)
[2018-07-06] MEDS: Escitalopram 10 MG Tablet PO SCH (08:33)
[2018-07-06] MEDS: Lisinopril 5 MG Tablet PO SCH (08:34)
[2018-07-06] MEDS: Bisacodyl 10 MG Supp RECTAL SCH (08:35)
--- NOTE | 2018-07-06 10:22 | P.PNIM ---
Subjective Interval history: No new clinical complaints. Physical Exam Vital signs: 07/05/18 20:27 07/05/18 23:54 07/06/18 08:00 Temperature 98.1 F 98.2 F 98.2 F Pulse Rate 74 89 70 Respiratory Rate 18 18 16 Blood Pressure 157/67 H 115/56 L 133/60 Pulse Oximetry 96 97 95 Narrative: General: NAD, AAOx3 Chest: CTA Cardiac: Regular Abd: +BS, soft nondistended Ext: No edema - Urinary Catheter Management Indwelling Urethral Catheter Cath placed during this visit: yes Reason for continuing: Other continuation reason Insertion date: 07/01/18 Insertion time: 10:15 Results - Labs CBC & Chem 7: 07/05/18 06:40 07/05/18 06:40 Assessment and Plan - Assessment (1) Small bowel obstruction Code(s): K56.609 - Unspecified intestinal obstruction, unspecified as to partial versus complete obstruction Status: Acute Plan: SBO - Akin is a 77 y/o female with hx of rectal cancer, dementia, HTN, hyperlipidemia. - [place] [facility] [place] with complaints of worsening abdominal pain. - This pain has apparently been present on and off for over a year but in the last 4 weeks it has been more persistent and severe. The pain involves the lower abdomen as well as the left flank area. - Abdomen/Pelvis CT (07/01/18): 1. The findings are concerning for small bowel obstruction with dilated loops of small intestine, and transition point in the right lower quadrant with decompressed distal ileum. 2. Atherosclerosis. 3. Right renal cyst. - NGT removed - comgmt with GI and General Surgery - Abdomen X-Ray (07/02/18): - Gaseous distention of bowel loops without obstruction. - SBFT (07/02/18) --> no obstruction - case d/w General Surgery (07/04/18), Dr. Castillo. - Pt's son, Dr. Katshital, requesting GI consultation regarding weight loss. - Colonoscopy (07/05/18) with Dr. Whitney - Diverticulosis - EGD (07/05/18) with Dr. Whitney - Small distal esophageal ulcer - Mild Schatzki ring - Nodule in the cardia - Gastritis - Food residue in the stomach suggestive of gastroparesis - In reviewing results of pt's EGD, it should be noted that pt has been receiving IV morphine which could also contribute to delayed gastric motility - I agree with obtaining Gastric Emptying Study - stop narcotics - tylenol prn pain - Obtain GES on , Jul 07. Need 48 hours following anesthesia used for endoscopy prior to GES. - anticipate d/c to SNF vs home with C on Sunday 07/0807/06/18 - Pt interviewed and examined - continue current treatment plan as outlined above. - Pt's son, Dr. Lam updated by phone (07/06/18). All questions answered to the best of my ability. - SCDs for DVT prophylaxis - supportive care. Left sided abdominal pain Weight loss Hx of rectal cancer Hx of Esophageal strictures Hx of collagenous colitis - Pt has had multiple EGDs with dilation (12/18/16, 08/09/17, 02/17/18) all with noted distal esophageal stricture which were dilated - Colonoscopy (12/18/16) with Dr. Moscoso --> Diverticulosis, and hemorrhoids. Pathology was negative. - Pt has had outpt CTs and CTA over the last year without any indication as the the case for her pain (2) LUQ abdominal pain Code(s): R10.12 - Left upper quadrant pain Status: Acute Plan: Pt has had multiple EGDs with dilation (12/18/16, 08/09/17, 02/17/18) all with noted distal esophageal stricture which were dilated Colonsocopy (12/18/16) with Dr. Moscoso --> Diverticulosis, and hemorrhoids. Pathology (3) Weight loss Code(s): R63.4 - Abnormal weight loss Status: Acute (4) Hx of malignant neoplasm of rectum Code(s): Z85.048 - Personal history of other malignant neoplasm of rectum, rectosigmoid junction, and anus Status: Acute
[2018-07-06] MEDS ORDERED: Acetaminophen 500 MG Tablet PO PRN (12:50)
--- NOTE | 2018-07-06 14:12 | P.PNGI ---
Subjective Interval history: Pt continues to have diffuse abdominal pain, states intermittent, located over entire abdomen Denies any nausea or emesis States she does not have much of an appetite Lunch tray at bedside has not been touched Discussed with pt she will have GES tomorrow Can't be within 24 hours of anesthesia <Miesha Chino - Last Filed: 07/06/18 14:05> Physical Exam Vital signs: Vital Signs 07/05/18 16:00 07/05/18 20:27 07/05/18 23:54 Temperature 98.9 F 98.1 F 98.2 F Pulse Rate 74 74 89 Respiratory Rate 20 18 18 Blood Pressure 163/70 H 157/67 H 115/56 L Pulse Oximetry 97 96 97 07/06/18 08:00 07/06/18 12:00 Temperature 98.2 F 98.5 F Pulse Rate 70 74 Respiratory Rate 16 16 Blood Pressure 133/60 157/70 H Pulse Oximetry 95 98 Intake & Output 07/05/18 07/06/18 07/06/18 18:59 06:59 18:59 Intake Total 1979 480 / 480 Balance 1979 480 / 480 Weight 47.2 kg Intake: IV 1100 / 1100 D5W/NS + KCL 20 mEq Inj 1,000 1000 / 1000 ML @ 84 mls/hr IV.CONT .[id number] ANALIA Rx#:[id number] LR 1000 mL Inj 1,000 ML @ 30 100 / 100 mls/hr IV.SIG .Q24H ANALIA Rx#: [id number] Oral 480 / 480 480 / 480 Anesthesia Amount 400 / 400 Other: # Voids 1 1 # Incontinent Voids 2 Date of Last Bowel Movement 07/05/18 07/06/18 # Bowel Movements 1 0 - Constitutional no acute distress - Routine HEENT Exam Head: Present: normocephalic, atraumatic - Routine Respiratory Exam Absent: accessory muscle use - Routine Abdominal Exam Present: soft, normoactive bowel sounds. Absent: tenderness, distended - Routine Skin Exam Present: dry, warm - Routine Neurological Exam Present: alert, oriented X3 - Urinary Catheter Management Indwelling Urethral Catheter Cath placed during this visit: yes Reason for continuing: Other continuation reason Insertion date: 07/01/18 Insertion time: 10:15 <Miesha Chino - Last Filed: 07/06/18 14:05> Vital signs: Vital Signs 07/05/18 23:54 07/06/18 08:00 07/06/18 12:00 Temperature 98.2 F 98.2 F 98.5 F Pulse Rate 89 70 74 Respiratory Rate 18 16 16 Blood Pressure 115/56 L 133/60 157/70 H Pulse Oximetry 97 95 98 07/06/18 15:53 Temperature 98.7 F Pulse Rate 83 Respiratory Rate 16 Blood Pressure 130/63 Pulse Oximetry 96 Intake & Output 07/06/18 07/06/18 07/07/18 06:59 18:59 06:59 Intake Total 480 / 480 840 / 840 Balance 480 / 480 840 / 840 Weight 47.2 kg Intake: Oral 480 / 480 840 / 840 Other: # Voids 1 4 Date of Last Bowel Movement 07/06/18 # Bowel Movements 0 4 - Urinary Catheter Management Indwelling Urethral Catheter Cath placed during this visit: no <Jerry Whitney - Last Filed: 07/06/18 21:15> Results - Labs CBC & Chem 7: 07/05/18 06:40 07/05/18 06:40 <Miesha Chino - Last Filed: 07/06/18 14:05> - Labs CBC & Chem 7: 07/05/18 06:40 07/05/18 06:40 <Jerry Whitney - Last Filed: 07/06/18 21:15> Assessment and Plan (1) LUQ abdominal pain Status: Acute Code(s): R10.12 - Left upper quadrant pain (2) Weight loss Status: Acute Code(s): R63.4 - Abnormal weight loss - Plan Assessment: - Abdominal pain, poor PO intake, weight loss S/P EGD and colonoscopy EGD --> Small distal esophageal ulcer. Mild Schatzki ring, nodule in the cardia, gastritis, food residue in the stomach suggestive of gastroparesis Colonoscopy --> Mild diverticula in the sigmoid colon Suspect symptoms are secondary to gastroparesis. Can not have GES within 24 hours of anesthesia, will plan for exam tomorrow. Plan: Antiemetics PRN GES tomorrow Control of BGL- DM type 2 Minimize pain medicine Protonix EGD biopsy pending Further recommendations to follow Pt has been seen and examined by myself and Dr. Whitney and this note is written on his behalf <Miesha Chino - Last Filed: 07/06/18 14:05> (1) LUQ abdominal pain Status: Acute Code(s): R10.12 - Left upper quadrant pain (2) Weight loss Status: Acute Code(s): R63.4 - Abnormal weight loss - Plan Patient seen and examined Agree with above Continue with current supportive care Monitor labs <Jerry Whitney - Last Filed: 07/06/18 21:15>
[2018-07-06] MEDS: traZODone 50 MG Tablet PO SCH (21:28)
[2018-07-07] MEDS: Levothyroxine 75 MCG Tablet PO SCH (05:56)
[2018-07-07] MEDS: Lisinopril 5 MG Tablet PO SCH (08:16)
[2018-07-07] MEDS: Escitalopram 10 MG Tablet PO SCH (08:16)
[2018-07-07] MEDS: Bisacodyl 10 MG Supp RECTAL SCH (08:18)
--- NOTE | 2018-07-07 08:54 | P.PNGS ---
Subjective Patient reports: still having pain, tolerating liquids well, flatus, bowel movement Physical Exam Vital signs: Vital Signs 07/06/18 12:00 07/06/18 15:53 07/06/18 19:20 Temperature 98.5 F 98.7 F 98.5 F Pulse Rate 74 83 83 Respiratory Rate 16 16 17 Blood Pressure 157/70 H 130/63 100/55 L Pulse Oximetry 98 96 95 07/07/18 00:11 07/07/18 03:28 Temperature 98.5 F 98.2 F Pulse Rate 72 78 Respiratory Rate 17 17 Blood Pressure 142/64 H 120/55 L Pulse Oximetry 96 96 Intake & Output 07/06/18 07/07/18 07/07/18 18:59 06:59 18:59 Intake Total 840 / 840 360 / 360 Balance 840 / 840 360 / 360 Weight 47.2 kg Intake: Oral 840 / 840 360 / 360 Other: # Voids 4 5 Date of Last Bowel Movement 07/06/18 07/06/18 # Bowel Movements 4 5 - Constitutional no acute distress - Routine Respiratory Exam Present: CTA bilaterally - Routine Cardiovascular Exam Present: RRR, S1, S2 - Routine Abdominal Exam Present: soft, tenderness Comments: Mildly improved with less distention from previous exam. continues painful throughout. No rebound - Urinary Catheter Management Indwelling Urethral Catheter Cath placed during this visit: yes Reason for continuing: Other continuation reason Insertion date: 07/01/18 Insertion time: 10:15 Results - Labs 07/05/18 06:40 07/05/18 06:40 - Imaging Imaging: ITS Impressions Abdomen/Pelvis CT 07/01/18 10:31 CONCLUSION: 1. The findings are concerning for small bowel obstruction with dilated loops of small intestine, and transition point in the right lower quadrant with decompressed distal ileum. 2. Atherosclerosis. 3. Right renal cyst. Small Bowel X-Ray 07/02/18 00:00 CONCLUSION: Unremarkable small bowel follow-through exam. No evidence for obstruction. Abdomen X-Ray 07/04/18 13:18 CONCLUSION: 1. Nonobstructive bowel gas pattern. Assessment and Plan - Assessment (1) Small bowel obstruction Code(s): K56.609 - Unspecified intestinal obstruction, unspecified as to partial versus complete obstruction Status: Acute Plan: Tolerating full liquid, advance diet as tolerated oob ambulate with assistance Continue MOM and dulcolax as needed Gastric emptying study tomorrow. Observe, hold off on surgery for now. - Plan Code Status: full Discussed Condition With: patient
--- NOTE | 2018-07-07 10:56 | P.PNGS ---
Subjective Patient reports: pain is less, tolerating liquids well (Continues intolerant of solids with c/o pain during consumption. Pt wants to go home.), flatus, diarrhea Physical Exam Vital signs: Vital Signs 07/06/18 12:00 07/06/18 15:53 07/06/18 19:20 Temperature 98.5 F 98.7 F 98.5 F Pulse Rate 74 83 83 Respiratory Rate 16 16 17 Blood Pressure 157/70 H 130/63 100/55 L Pulse Oximetry 98 96 95 07/07/18 00:11 07/07/18 03:28 07/07/18 08:00 Temperature 98.5 F 98.2 F 98.3 F Pulse Rate 72 78 81 Respiratory Rate 17 17 19 Blood Pressure 142/64 H 120/55 L 117/59 L Pulse Oximetry 96 96 96 Intake & Output 07/06/18 07/07/18 07/07/18 18:59 06:59 18:59 Intake Total 840 / 840 360 / 360 Balance 840 / 840 360 / 360 Weight 47.2 kg Intake: Oral 840 / 840 360 / 360 Other: # Voids 4 5 Date of Last Bowel Movement 07/06/18 07/06/18 07/06/18 # Bowel Movements 4 5 - Constitutional no acute distress - Routine Respiratory Exam Present: CTA bilaterally - Routine Cardiovascular Exam Present: RRR, S1, S2 - Routine Abdominal Exam Present: soft, tenderness Comments: mildly improved from yesterday - Urinary Catheter Management Indwelling Urethral Catheter Cath placed during this visit: yes Reason for continuing: Other continuation reason Insertion date: 07/01/18 Insertion time: 10:15 Results - Labs 07/05/18 06:40 07/05/18 06:40 - Imaging Imaging: ITS Impressions Abdomen/Pelvis CT 07/01/18 10:31 CONCLUSION: 1. The findings are concerning for small bowel obstruction with dilated loops of small intestine, and transition point in the right lower quadrant with decompressed distal ileum. 2. Atherosclerosis. 3. Right renal cyst. Small Bowel X-Ray 07/02/18 00:00 CONCLUSION: Unremarkable small bowel follow-through exam. No evidence for obstruction. Abdomen X-Ray 07/04/18 13:18 CONCLUSION: 1. Nonobstructive bowel gas pattern. Assessment and Plan - Assessment (1) Small bowel obstruction Code(s): K56.609 - Unspecified intestinal obstruction, unspecified as to partial versus complete obstruction Status: Acute Plan: Tolerating full liquid, advance diet as tolerated oob ambulate with assistance Continue MOM and dulcolax as needed Gastric emptying study today Observe, hold off on surgery for now. - Plan Code Status: full Discussed Condition With: patient
--- NOTE | 2018-07-07 11:45 | P.PNGI ---
Subjective Interval history: Pt very irritated about not having her GES done this morning yet. RN unsure what time they are coming to get her. She is NPO for exam. Continued diffuse abdominal pain, currently with heating pack to abdomen. Denies nausea and vomiting. Poor appetite, did not eat dinner last night. Continues to have watery stools. <Miesha Chino - Last Filed: 07/07/18 11:42> Physical Exam Vital signs: Vital Signs 07/06/18 12:00 07/06/18 15:53 07/06/18 19:20 Temperature 98.5 F 98.7 F 98.5 F Pulse Rate 74 83 83 Respiratory Rate 16 16 17 Blood Pressure 157/70 H 130/63 100/55 L Pulse Oximetry 98 96 95 07/07/18 00:11 07/07/18 03:28 07/07/18 08:00 Temperature 98.5 F 98.2 F 98.3 F Pulse Rate 72 78 81 Respiratory Rate 17 17 19 Blood Pressure 142/64 H 120/55 L 117/59 L Pulse Oximetry 96 96 96 Intake & Output 07/06/18 07/07/18 07/07/18 18:59 06:59 18:59 Intake Total 840 / 840 360 / 360 Balance 840 / 840 360 / 360 Weight 47.2 kg Intake: Oral 840 / 840 360 / 360 Other: # Voids 4 5 Date of Last Bowel Movement 07/06/18 07/06/18 07/06/18 # Bowel Movements 4 5 - Constitutional no acute distress - Routine HEENT Exam Head: Present: normocephalic, atraumatic - Routine Respiratory Exam Absent: accessory muscle use - Routine Abdominal Exam Present: soft, normoactive bowel sounds, tenderness. Absent: distended - Routine Skin Exam Present: dry, warm - Routine Neurological Exam Present: alert, oriented X3 - Urinary Catheter Management Indwelling Urethral Catheter Cath placed during this visit: yes Reason for continuing: Other continuation reason Insertion date: 07/01/18 Insertion time: 10:15 <Miesha Chino - Last Filed: 07/07/18 11:42> Vital signs: Vital Signs 07/07/18 00:11 07/07/18 03:28 07/07/18 08:00 Temperature 98.5 F 98.2 F 98.3 F Pulse Rate 72 78 81 Respiratory Rate 17 17 19 Blood Pressure 142/64 H 120/55 L 117/59 L Pulse Oximetry 96 96 96 07/07/18 16:00 Temperature 97.4 F L Pulse Rate 76 Respiratory Rate 20 Blood Pressure 119/56 L Pulse Oximetry 96 Intake & Output 07/07/18 07/07/18 07/08/18 06:59 18:59 06:59 Intake Total 360 / 360 Balance 360 / 360 Weight 47.2 kg Intake: Oral 360 / 360 Other: # Voids 5 3 Date of Last Bowel Movement 07/06/18 07/06/18 # Bowel Movements 5 1 - Urinary Catheter Management Indwelling Urethral Catheter Cath placed during this visit: no <Jerry Whitney - Last Filed: 07/07/18 21:43> Results - Labs CBC & Chem 7: 07/05/18 06:40 07/05/18 06:40 <Miesha Chino - Last Filed: 07/07/18 11:42> - Labs CBC & Chem 7: 07/05/18 06:40 07/05/18 06:40 - Imaging Impressions Gastric Emptying Nuclear Medicine 07/07/18 08:00 CONCLUSION: 1. Normal gastric emptying half-time and kinetics. <Jerry Whitney - Last Filed: 07/07/18 21:43> Assessment and Plan (1) LUQ abdominal pain Status: Acute Code(s): R10.12 - Left upper quadrant pain (2) Weight loss Status: Acute Code(s): R63.4 - Abnormal weight loss - Plan Assessment: - Abdominal pain, poor PO intake, weight loss S/P EGD and colonoscopy EGD --> Small distal esophageal ulcer. Mild Schatzki ring, nodule in the cardia, gastritis, food residue in the stomach suggestive of gastroparesis Colonoscopy --> Mild diverticula in the sigmoid colon Suspect symptoms are secondary to gastroparesis. Can not have GES within 24 hours of anesthesia, will plan for exam tomorrow. Plan: Antiemetics PRN GES today Control of BGL- DM type 2 Minimize pain medicine Protonix EGD biopsy pending GS following Continue with supportive care, no surgery at this time Further recommendations to follow Pt has been seen and examined by myself and Dr. Whitney and this note is written on his behalf <Miesha Chino - Last Filed: 07/07/18 11:42> (1) LUQ abdominal pain Status: Acute Code(s): R10.12 - Left upper quadrant pain (2) Weight loss Status: Acute Code(s): R63.4 - Abnormal weight loss - Plan Patient seen and examined Agree with above Continue with current supportive care Monitor labs Emptying scan unremarkable No obvious etiology for weight loss pain and poor appetite Would treat symptomatically possibly with appetite stimulants such as Marinol which would also be good for abdominal pain She may benefit from antianxiety or anti-depressive type treatments <Jerry Whitney - Last Filed: 07/07/18 21:43>
--- NOTE | 2018-07-07 14:40 | NM ---
EXAM DATE: 07/07/2018 2:14 PM EDT AGE/SEX: 77 years / Female INDICATIONS: Abdominal pain with nausea and vomiting. CLINICAL DATA: This is the patient's initial encounter. Patient reports that signs and symptoms have been present for 1 month and indicates a pain score of 6/10. MEDICAL/SURGICAL HISTORY: Carcinoma, colon. Diabetes mellitus type II. Dementia. Hysterectomy . COMPARISON: [facility], CT ABDOMEN & PELVIS W CONTRAST, 07/01/2018. . DOSE: 1 mCi Tc99m Sulfur Colloid Labeled Whole Egg PO MEDICATION: 5 mg Reglan IV at 90 min minutes. IMAGING TIME: 2 hr TECHNIQUE: Following the oral ingestion of radiotracer-labeled meal, dynamic sequential images in the [place] projection were acquired with simultaneous computer acquisition. The data set was decay-correcte d. FINDINGS: Lag Phase: There is 0 minutes before onset of gastric emptying. Emptying: Gastric emptying kinetics are linear. The decay-corrected, back-extrapolated half-time of emptying is 71 minutes. (Normal for this lab is 45 - 90 minutes) Intervention: 5 mg of Reglan IV at 90 minutes. Near-complete emptying following Reglan administratio n. CONCLUSION: 1. Normal gastric emptying half-time and kinetics. Electronically signed by: Herminio Leyva MD 07/07/2018 2:38 PM EDT
--- NOTE | 2018-07-07 14:48 | P.PNIM ---
Subjective Interval history: No new complaints. Physical Exam Vital signs: 07/07/18 03:28 07/07/18 08:00 Temperature 98.2 F 98.3 F Pulse Rate 78 81 Respiratory Rate 17 19 Blood Pressure 120/55 L 117/59 L Pulse Oximetry 96 96 Narrative: General: NAD, AAOx3 Chest: CTA Cardiac: Regular Abd: +BS, soft nondistended Ext: No edema - Urinary Catheter Management Indwelling Urethral Catheter Cath placed during this visit: yes Reason for continuing: Other continuation reason Insertion date: 07/01/18 Insertion time: 10:15 Results - Labs CBC & Chem 7: 07/05/18 06:40 07/05/18 06:40 - Imaging Gastric Emptying Nuclear Medicine 07/07/18 08:00 1. Normal gastric emptying half-time and kinetics. Assessment and Plan - Assessment (1) Small bowel obstruction Code(s): K56.609 - Unspecified intestinal obstruction, unspecified as to partial versus complete obstruction Status: Acute Plan: SBO Sumeet Gerardo is a 77 y/o female with hx of rectal cancer, dementia, HTN, hyperlipidemia. - She presented to the ED at [facility] [place] on 07/01/18 with complaints of worsening abdominal pain. - This pain has apparently been present on and off for over a year but in the last 4 weeks it has been more persistent and severe. The pain involves the lower abdomen as well as the left flank area. - Abdomen/Pelvis CT (07/01/18): 1. The findings are concerning for small bowel obstruction with dilated loops of small intestine, and transition point in the right lower quadrant with decompressed distal ileum. 2. Atherosclerosis. 3. Right renal cyst. - NGT removed - comgmt with GI and General Surgery - Abdomen X-Ray (07/02/18): - Gaseous distention of bowel loops without obstruction. - SBFT (07/02/18) --> no obstruction - case d/w General Surgery (07/04/18), Dr. Castillo. - Pt's son, Dr. Lam, requesting GI consultation regarding weight loss. - Colonoscopy (07/05/18) with Dr. Whitney - Diverticulosis - EGD (07/05/18) with Dr. Whitney - Small distal esophageal ulcer - Mild Schatzki ring - Nodule in the cardia - Gastritis - Food residue in the stomach suggestive of gastroparesis - In reviewing results of pt's EGD, it should be noted that pt has been receiving IV morphine which could also contribute to delayed gastric motility - stop narcotics - tylenol prn pain - GES (07/07) --> normal kinetics - PT recommends SNF - Anticipate d/c to SNF 07/07/18 - Pt's son, Dr. Lam updated by phone (07/06/18). All questions answered to the best of my ability. - SCDs for DVT prophylaxis - supportive care. Left sided abdominal pain Weight loss Hx of rectal cancer Hx of Esophageal strictures Hx of collagenous colitis - Pt has had multiple EGDs with dilation (12/18/16, 08/09/17, 02/17/18) all with noted distal esophageal stricture which were dilated - Colonoscopy (12/18/16) with Dr. Moscoso --> Diverticulosis, and hemorrhoids. Pathology was negative. - Pt has had outpt CTs and CTA over the last year without any indication as the the case for her pain (2) LUQ abdominal pain Code(s): R10.12 - Left upper quadrant pain Status: Acute Plan: Pt has had multiple EGDs with dilation (12/18/16, 08/09/17, 02/17/18) all with noted distal esophageal stricture which were dilated Colonsocopy (12/18/16) with Dr. Moscoso --> Diverticulosis, and hemorrhoids. Pathology (3) Weight loss Code(s): R63.4 - Abnormal weight loss Status: Acute (4) Hx of malignant neoplasm of rectum Code(s): Z85.048 - Personal history of other malignant neoplasm of rectum, rectosigmoid junction, and anus Status: Acute
[2018-07-07] MEDS: traZODone 50 MG Tablet PO SCH (21:29)
[2018-07-08] MEDS: Levothyroxine 75 MCG Tablet PO SCH (05:45)
[2018-07-08 08:39] VITALS: O2SAT 96
[2018-07-08] MEDS: Escitalopram 10 MG Tablet PO SCH (08:59)
[2018-07-08] MEDS: Lisinopril 5 MG Tablet PO SCH (09:00)
[2018-07-08] MEDS: Bisacodyl 10 MG Supp RECTAL SCH (09:06)
[2018-07-08] MEDS: DRONABINOL 2.5 MG CAPSULE PO SCH ×2 (11:45→16:00)
[2018-07-08 12:20] VITALS: BP 142/61; PULSE 74; RESP 18; TEMP 98.3
--- NOTE | 2018-07-08 14:08 | P.DCO ---
- Diagnosis (1) Small bowel obstruction Status: Acute (2) Hx of malignant neoplasm of rectum Status: Acute - Physical Therapy Order: Evaluate and treat - Home Health Nursing Order: Medical education, Signs/symptoms of disease process, Nursing assessment with vital signs - Case Management Consult No - Certification I have seen patient Gregg Lam on 07/08/18. My clinical findings support the need for the requested home health care services because: Limited mobility due to disease progression, Deconditioned with increased weakness I certify that my clinical findings support that this patient is homebound because: Unsteady gait/balance
--- NOTE | 2018-07-08 14:56 | P.DS ---
<Sirena Corcoran - Last Filed: 07/08/18 15:39> Date of admission: 07/01/18 13:17 Primary care physician: Watson Salter MD Attending physician on discharge: Avery Gomez Anticipated date of discharge: 07/08/18 Brief History from admission: Patient is 77 yo woman with past hx of dm 2, , HTN, hyperlipidemia, osteoarthritis and hx of colorectal cancer. According to pt and family she has had intermittent abdomen pains for a year. She has undergone egd and colonoscopy w/out clear identification. She has seen GI for evaluation and also 2 CT scans including angiogram w/out any conclusion. She now presents to [place] ED and found to have sbo with transition in rlq. She has an NGT and is seen tonight by general surgery. 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 Able to tolerate PO intake DS: Diagnosis - Discharge Diagnosis (1) Small bowel obstruction Status: Acute (2) Hx of malignant neoplasm of rectum Status: Acute DS: Summary Hospital Course: SBO - resolved - Pt is a 77 y/o female with hx of rectal cancer, dementia, HTN, hyperlipidemia. - She presented to the ED at [facility] on 07/01/18 with complaints of worsening abdominal pain. - This pain has apparently been present on and off for over a year but in the last 4 weeks it has been more persistent and severe. The pain involves the lower abdomen as well as the left flank area. - Abdomen/Pelvis CT (07/01/18): 1. The findings are concerning for small bowel obstruction with dilated loops of small intestine, and transition point in the right lower quadrant with decompressed distal ileum. 2. Atherosclerosis. 3. Right renal cyst. - NGT removed - comgmt with GI and General Surgery - Abdomen X-Ray (07/02/18): - Gaseous distention of bowel loops without obstruction. - SBFT (07/02/18) --> no obstruction - case d/w General Surgery (07/04/18), Dr. Castillo. - Pt's son, Dr. Lam, requesting GI consultation regarding weight loss. - Colonoscopy (07/05/18) with Dr. Whitney - Diverticulosis - EGD (07/05/18) with Dr. Whitney - Small distal esophageal ulcer - Mild Schatzki ring - Nodule in the cardia - Gastritis - Food residue in the stomach suggestive of gastroparesis - In reviewing results of pt's EGD, it should be noted that pt has been receiving IV morphine which could also contribute to delayed gastric motility - stop narcotics - tylenol prn pain - GES (07/07) --> normal kinetics - Dr. Gomez discussed with Pt's son, Dr. Lam updated by phone (). -discussed with patient DC to SNF for strengthening/rehab patient refused SNF. Patient will accept [facility] - SCDs for DVT prophylaxis - supportive care. Left sided abdominal pain Weight loss Hx of rectal cancer Hx of Esophageal strictures Hx of collagenous colitis - Pt has had multiple EGDs with dilation (12/18/16, 08/09/17, 02/17/18) all with noted distal esophageal stricture which were dilated - Colonoscopy (12/18/16) with Dr. Moscoso --> Diverticulosis, and hemorrhoids. Pathology was negative. - Pt has had outpt CTs and CTA over the last year without any indication as the the case for her pain (2) LUQ abdominal pain Code(s): R10.12 - Left upper quadrant pain Status: Acute Plan: Pt has had multiple EGDs with dilation (12/18/16, 08/09/17, 02/17/18) all with noted distal esophageal stricture which were dilated Colonsocopy (12/18/16) with Dr. Moscoso --> Diverticulosis, and hemorrhoids. Pathology - Time Spent with Patient Total time spent providing and/or coordinating discharge services: Greater than 30 minutes - Quality: VTE Deep Vein Thrombosis/Pulmonary Embolism Present on Admission: No Exam Vital signs: Vital Signs 07/07/18 16:00 07/07/18 20:35 07/08/18 00:30 Temperature 97.4 F L 98.5 F 98.0 F Pulse Rate 76 65 71 Respiratory Rate 20 15 16 Blood Pressure 119/56 L 134/57 L 128/60 Pulse Oximetry 96 98 97 07/08/18 08:00 07/08/18 12:00 Temperature 98.5 F 98.3 F Pulse Rate 68 74 Respiratory Rate 16 18 Blood Pressure 145/62 H 142/61 H Pulse Oximetry 96 96 Intake & Output 07/07/18 07/08/18 07/08/18 18:59 06:59 18:59 Intake Total 780 / 780 Balance 780 / 780 Weight 47.7 kg Intake: Oral 780 / 780 Other: # Voids 3 3 Date of Last Bowel Movement 07/06/18 07/08/18 # Bowel Movements 1 3 Narrative: General: NAD, AAOx3 Chest: CTA Cardiac: Regular Abd: +BS, soft nondistended Ext: No edema Results Procedures completed during hospitalization: - SBFT (07/02/18) --> no obstruction - Colonoscopy (07/05/18) with Dr. Whitney - Diverticulosis - EGD (07/05/18) with Dr. Whitney - Small distal esophageal ulcer - Mild Schatzki ring - Nodule in the cardia - Gastritis - Food residue in the stomach suggestive of gastroparesis - GES (07/07) --> normal kinetics - Impressions ITS Impressions Abdomen/Pelvis CT 07/01/18 10:31 CONCLUSION: 1. The findings are concerning for small bowel obstruction with dilated loops of small intestine, and transition point in the right lower quadrant with decompressed distal ileum. 2. Atherosclerosis. 3. Right renal cyst. Small Bowel X-Ray 07/02/18 00:00 CONCLUSION: Unremarkable small bowel follow-through exam. No evidence for obstruction. Abdomen X-Ray 07/04/18 13:18 CONCLUSION: 1. Nonobstructive bowel gas pattern. Gastric Emptying Nuclear Medicine 07/07/18 08:00 CONCLUSION: 1. Normal gastric emptying half-time and kinetics. <Avery Gomez - Last Filed: 07/10/18 07:49> Date of admission: 07/01/18 13:17 Primary care physician: Watson Salter MD DS: Diagnosis - Discharge Diagnosis (1) Small bowel obstruction Status: Acute (2) LUQ abdominal pain Status: Acute (3) Weight loss Status: Acute (4) Hx of malignant neoplasm of rectum Status: Acute DS: Summary Hospital Course: Patient examined. Assessment and plan formulated with Sirena Corcoran PA-C. I agree with the above. - Time Spent with Patient Total time spent providing and/or coordinating discharge services: Greater than 30 minutes Results - Impressions ITS Impressions Abdomen/Pelvis CT 07/01/18 10:31 CONCLUSION: 1. The findings are concerning for small bowel obstruction with dilated loops of small intestine, and transition point in the right lower quadrant with decompressed distal ileum. 2. Atherosclerosis. 3. Right renal cyst. Small Bowel X-Ray 07/02/18 00:00 CONCLUSION: Unremarkable small bowel follow-through exam. No evidence for obstruction. Abdomen X-Ray 07/04/18 13:18 CONCLUSION: 1. Nonobstructive bowel gas pattern. Gastric Emptying Nuclear Medicine 07/07/18 08:00 CONCLUSION: 1. Normal gastric emptying half-time and kinetics. Discharge Plan - Discharge Order Discharge Orders: Discharge Order (Routine); Ordered 07/08/18 Ordered By: Sirena Corcoran - Discharge Details Anticipated Discharge Date: 07/08/18 - Physicians Team Primary Care Provider: Watson Salter Attending Provider: Killian Escobar Other Providers: Jaleel Sosa MD ; Jerry Whitney MD ; [facility]
--- NOTE | 2018-07-08 15:43 | P.PNGI ---
Subjective Interval history: Patient states she is tolerating full liquids and soft foods without any nausea or vomiting but tries to eat slow chewing and small amounts of food recommend 4-6 feedings a day to train herself to eat more food and hydration. <Siomara Waters - Last Filed: 07/13/18 15:36> Physical Exam Vital signs: Vital Signs 07/07/18 20:35 07/08/18 00:30 07/08/18 08:00 Temperature 98.5 F 98.0 F 98.5 F Pulse Rate 65 71 68 Respiratory Rate 15 16 16 Blood Pressure 134/57 L 128/60 145/62 H Pulse Oximetry 98 97 96 07/08/18 12:00 Temperature 98.3 F Pulse Rate 74 Respiratory Rate 18 Blood Pressure 142/61 H Pulse Oximetry 96 Intake & Output 07/07/18 07/08/18 07/08/18 18:59 06:59 18:59 Intake Total 780 / 780 Balance 780 / 780 Weight 47.7 kg Intake: Oral 780 / 780 Other: # Voids 3 3 Date of Last Bowel Movement 07/06/18 07/08/18 # Bowel Movements 1 3 - Urinary Catheter Management Indwelling Urethral Catheter Cath placed during this visit: no <Jerry Whitney - Last Filed: 07/08/18 17:09> Vital signs: Vital Signs 07/07/18 16:00 07/07/18 20:35 07/08/18 00:30 Temperature 97.4 F L 98.5 F 98.0 F Pulse Rate 76 65 71 Respiratory Rate 20 15 16 Blood Pressure 119/56 L 134/57 L 128/60 Pulse Oximetry 96 98 97 07/08/18 08:00 07/08/18 12:00 Temperature 98.5 F 98.3 F Pulse Rate 68 74 Respiratory Rate 16 18 Blood Pressure 145/62 H 142/61 H Pulse Oximetry 96 96 Intake & Output 07/07/18 07/08/18 07/08/18 18:59 06:59 18:59 Intake Total 780 / 780 Balance 780 / 780 Weight 47.7 kg Intake: Oral 780 / 780 Other: # Voids 3 3 Date of Last Bowel Movement 07/06/18 07/08/18 # Bowel Movements 1 3 - Constitutional no acute distress, chronically ill appearing - Routine HEENT Exam Head: Present: normocephalic ENT: Present: mucous membranes moist - Routine Respiratory Exam Present: accessory muscle use - Routine Abdominal Exam Present: soft, normoactive bowel sounds - Urinary Catheter Management Indwelling Urethral Catheter Cath placed during this visit: yes Reason for continuing: Other continuation reason Insertion date: 07/01/18 Insertion time: 10:15 <Siomara Waters - Last Filed: 07/13/18 15:36> Results - Labs CBC & Chem 7: 07/05/18 06:40 07/05/18 06:40 <Jerry Whitney - Last Filed: 07/08/18 17:09> - Labs CBC & Chem 7: 07/05/18 06:40 07/05/18 06:40 - Procedures - SBFT (07/02/18) --> no obstruction - Colonoscopy (07/05/18) with Dr. Whitney - Diverticulosis - EGD (07/05/18) with Dr. Whitney - Small distal esophageal ulcer - Mild Schatzki ring - Nodule in the cardia - Gastritis - Food residue in the stomach suggestive of gastroparesis - GES (07/07) --> normal kinetics <Siomara Waters - Last Filed: 07/13/18 15:36> Assessment and Plan (1) LUQ abdominal pain Status: Acute Code(s): R10.12 - Left upper quadrant pain (2) Weight loss Status: Acute Code(s): R63.4 - Abnormal weight loss - Plan Patient seen and examined Agree with above history and physical Continue with current supportive care Monitor labs Patient follow-up with GI post discharge <Jerry Whitney - Last Filed: 07/08/18 17:09> (1) LUQ abdominal pain Status: Acute Code(s): R10.12 - Left upper quadrant pain (2) Weight loss Status: Acute Code(s): R63.4 - Abnormal weight loss - Plan - Plan Assessment: - Abdominal pain, poor PO intake, weight loss S/P EGD and colonoscopy EGD --> Small distal esophageal ulcer. Mild Schatzki ring, nodule in the cardia, gastritis, food residue in the stomach suggestive of gastroparesis Colonoscopy --> Mild diverticula in the sigmoid colon Suspect symptoms are secondary to gastroparesis. Can not have GES within 24 hours of anesthesia, will plan for exam tomorrow. 07/08/2018 gastric emptying study normal, x-rays last reviewed are normal. Patient states she is tolerating full liquids and soft foods without any nausea or vomiting but tries to eat slow chewing and small amounts of food recommend 4- 6 feedings a day to train herself to eat more food and hydration. Consider appetite stimulants if patient continues to have weight loss. EGD colonoscopy results reviewed and noted above labs reviewed which showed hemoglobin 11.5 no obvious bleeding and WBC count 11.6. BM x1 today loose. Encouraged mobility Plan: Diet now as tolerated and encourage hydration, Antireflux precautions Antiemetics as needed PPI Bowel regimen Follow-up in the GI office in 2-4 weeks after discharge Supportive care Patient was seen per myself and Dr. Whitney, note was written on his behalf <Siomara Waters - Last Filed: 07/13/18 15:36>
== END 2018-07-08 17:03 | disposition home health service (06) ==
LOC: PHED 10:04 → PHEDH 13:17 → N06 18:03
PROVIDERS: ADMIT Hospitalist; ATTEND Hospitalist
PROC: COLONOS (2018-07-05 12:10)

== ENCOUNTER 2018-07-12 12:29 | Inpatient (IN) ==
[2018-07-12] MEDS ORDERED: Sod Chloride 0.9% Inj 1,000 ML IV.SIG ONE (13:02)
[2018-07-12] MEDS ORDERED: Ketorolac Inj 30 MG/ML (IVP) Vial IV.PUSH ONE (13:03)
--- NOTE | 2018-07-12 13:10 | ED ---
HPI General Chief Complaint: Abdominal Pain Stated Complaint: Medical Time Seen by Provider: 07/12/18 12:38 Source: patient Mode of arrival: EMS Limitations: no limitations History of Present Illness HPI narrative: Patient is a 77-year-old female with history of diabetes mellitus , hypertension, hyperlipidemia, osteoarthritis, history of colorectal cancer, history of partial colectomy, cholecystectomy, hysterectomy and tonsillectomy. Patient presents to the emergency room with complaints of continued abdominal pain. Patient was recently admitted to the hospital as she had a small bowel obstruction. Patient reports that she was discharged sometime in the hospital yesterday still with abdominal pain. Patient reports that since being home, she continued to have abdominal pain, reports that pain is severe and she does need medication for pain. Patient denies any nausea or vomiting, reports that she did not have a bowel movement at home, she did have small watery bowel movements while being an inpatient. Patient's office machine technician is Dr. Moscoso Related Data Home Medications Medication Instructions Recorded Confirmed aspirin-dipyridamole 1 cap PO DAILY 07/01/18 07/12/18 cholecalciferol (vitamin D3) 5,000 unit PO DAILY 07/01/18 07/12/18 donepezil 5 mg PO DAILY 07/01/18 07/12/18 escitalopram oxalate [Lexapro] 10 mg PO DAILY 07/01/18 07/12/18 levothyroxine [Synthroid] 75 mcg PO DAILY 07/01/18 07/12/18 lisinopril 2.5 mg PO DAILY 07/01/18 07/12/18 metformin 250 mg PO BID 07/01/18 07/12/18 pantoprazole [Protonix] 40 mg PO BID 07/01/18 07/12/18 simvastatin 40 mg PO QPM 07/01/18 07/12/18 trazodone 50 mg PO HS 07/01/18 07/12/18 Allergies Allergy/AdvReac Type Severity Reaction Status Date / Time meperidine Allergy Severe Psychosis Verified 07/12/18 12:48 tetanus immune globulin Allergy Severe SWELLING Verified 07/12/18 12:48 adhesive Allergy Intermediate BLISTERS Verified 07/12/18 12:48 Review of Systems ROS: all other systems reviewed are negative PMFSH History History Provided By: Patient Medical History Medical History Colon cancer (Acute) Dementia (Acute) Diabetes (Acute) H/O: hysterectomy (Acute) High cholesterol (Acute) Hypertension (Acute) Hypothyroid (Acute) Surgical History Surgical History History of partial colectomy (Acute) Hx of cholecystectomy (Acute) Hx of tonsillectomy (Acute) Social History Social History Substance History: No History of Abuse Second Hand Smoke Exposure: Yes Smoking Status: Former smoker Tobacco Type: Cigarettes How Often Do You Have a Drink Containing Alcohol: Never Recent Travel in [facility] within the Last 8 Weeks: No Recent Out of Country Travel within the Last 8 Weeks: No Exam Narrative Exam Narrative: GENERAL: Moderate distress SKIN: Focused skin assessment warm/dry. HEAD: Atraumatic. Normocephalic. EYES: Pupils equal and round. No scleral icterus. No injection or drainage. ENT: No nasal bleeding or discharge. Mucous membranes pink and moist. NECK: Trachea midline. No JVD. CARDIOVASCULAR: Regular rate and rhythm. No murmur appreciated. RESPIRATORY: No accessory muscle use. Clear to auscultation. Breath sounds equal bilaterally. GASTROINTESTINAL: Abdomen soft, diffusely tender on palpation MUSCULOSKELETAL: No obvious deformities. No clubbing. No cyanosis. No edema. NEUROLOGICAL: Awake and alert. No obvious cranial nerve deficits. Motor grossly within normal limits. Normal speech. PSYCHIATRIC: Appropriate mood and affect; insight and judgment normal. Course Initial Documented Vital Signs Temperature 97.9 F 07/12/18 12:35 Pulse Rate 79 07/12/18 12:35 Respiratory Rate 16 07/12/18 12:35 Blood Pressure 170/77 H 07/12/18 12:35 Pulse Oximetry 100 07/12/18 12:35 Last Documented Vital Signs Temperature 97.9 F 07/12/18 12:35 Pulse Rate 93 H 07/12/18 15:44 Respiratory Rate 18 07/12/18 15:44 Blood Pressure 121/58 L 07/12/18 15:44 Pulse Oximetry 95 07/12/18 15:44 Medical Decision Making MDM Narrative Medical decision making narrative: During the course of the patients emergency department visit, the patients history, examination, and differential diagnosis were reviewed with the patient. The patient was placed on a bus monitor with oximetry and frequent blood pressure monitoring. The patient had an IV access obtained and blood work sent for analysis. The patient was initially provided IVF, IV zofran as well as toradol for pain control. The patients laboratory studies were reviewed Radiology studies were reviewed and remarkable for questionable SBO. patient will be admitted for surgery evaluation. Case reviewed with Dr. Escobar who accepts pt to service Medical Screen Exam Complete: Yes Emergency Medical Condition: Yes Differential Diagnosis Differential Diagnosis: Constipation, small bowel obstruction Medical Records Medical records reviewed: Yes I reviewed the patient's medical records. Lab Data Result diagrams: 07/12/18 13:50 07/12/18 13:50 Lab Results 07/12/18 07/12/18 07/12/18 Range/Units 13:49 13:50 13:50 WBC 11.4 H (4.0-11.0) th/mm3 RBC 3.88 L (4.00-5.30) mil/mm3 Hgb 11.8 (11.6-15.3) gm/dL Hct 34.2 L (35.0-46.0) % MCV 88.2 (80.0-100.0) fL MCH 30.4 (27.0-34.0) pg MCHC 34.5 (32.0-36.0) % RDW 14.2 (11.6-17.2) % Plt Count 390 (150-450) th/mm3 MPV 7.0 (7.0-11.0) fL Neut % (Auto) 86.4 H (16.0-70.0) % Lymph % (Auto) 7.9 L (9.0-44.0) % [place] % (Auto) 5.1 (0.0-8.0) % Eos % (Auto) 0.2 (0.0-4.0) % Baso % (Auto) 0.4 (0.0-2.0) % Neut # (Auto) 9.9 H (1.8-7.7) th/mm3 Lymph # (Auto) 0.9 L (1.0-4.8) th/mm3 [place] # (Auto) 0.6 (0.0-0.9) th/mm3 Eos # (Auto) 0.0 (0.0-0.4) th/mm3 Baso # (Auto) 0.0 (0.0-0.2) th/mm3 WBC Differential . Differential Comment Auto diff final PT 10.0 (9.8-11.6) sec INR 1.0 Ratio APTT 25.7 (24.3-30.1) sec Sodium (136-145) meq/L Potassium (3.5-5.1) meq/L Chloride (98-107) meq/L Carbon Dioxide (21.0-32.0) meq/L Anion Gap (5-15) meq/L BUN (7-18) mg/dL Creatinine (0.50-1.00) mg/dL Estimated GFR (>89) mL/min Random Glucose (74-106) mg/dL Calcium (8.5-10.1) mg/dL Magnesium (1.5-2.5) mg/dL Total Bilirubin (0.2-1.0) mg/dL AST (15-37) U/L ALT (10-53) U/L Alkaline Phosphatase (45-117) U/L Total Protein (6.4-8.2) g/dL Albumin (3.4-5.0) g/dL Lipase (73-393) U/L Urine Color Yellow (Yellw/Straw) Urine Clarity Clear (Clear) Urine pH 8.0 (5.0-8.5) Ur Specific [place] 1.015 (1.002-1.035) Urine Protein 30 H (Neg-Trace) mg/dL Urine Glucose (UA) Negative (Negative) mg/dL Urine Ketones Trace H (Negative) mg/dL Urine Occult Blood Negative (Negative) Urine Nitrate Negative (Negative) Urine Bilirubin Negative (Negative) Urine Urobilinogen 2.0 H (Less than 2) mg/dL Ur Leukocyte Esterase Negative (Negative) Urine RBC Less than 1 (0-3) /hpf Urine WBC 4 (0-5) /hpf Ur Squamous Epith Cells 6 (0-5) /hpf Urine Bacteria Rare H (None) /hpf Urine Mucus Few H (Occasional) /lpf Micro UA Comment Culture not ind Ur Microscopic Review Not Reportable Urine Culture Comments Culture not ind 07/12/18 Range/Units 13:50 WBC (4.0-11.0) th/mm3 RBC (4.00-5.30) mil/mm3 Hgb (11.6-15.3) gm/dL Hct (35.0-46.0) % MCV (80.0-100.0) fL MCH (27.0-34.0) pg MCHC (32.0-36.0) % RDW (11.6-17.2) % Plt Count (150-450) th/mm3 MPV (7.0-11.0) fL Neut % (Auto) (16.0-70.0) % Lymph % (Auto) (9.0-44.0) % [place] % (Auto) (0.0-8.0) % Eos % (Auto) (0.0-4.0) % Baso % (Auto) (0.0-2.0) % Neut # (Auto) (1.8-7.7) th/mm3 Lymph # (Auto) (1.0-4.8) th/mm3 [place] # (Auto) (0.0-0.9) th/mm3 Eos # (Auto) (0.0-0.4) th/mm3 Baso # (Auto) (0.0-0.2) th/mm3 WBC Differential Differential Comment PT (9.8-11.6) sec INR Ratio APTT (24.3-30.1) sec Sodium 135 L (136-145) meq/L Potassium 3.7 (3.5-5.1) meq/L Chloride 98 (98-107) meq/L Carbon Dioxide 26.2 (21.0-32.0) meq/L Anion Gap 11 (5-15) meq/L BUN 16 (7-18) mg/dL Creatinine 0.70 (0.50-1.00) mg/dL Estimated GFR 82 L (>89) mL/min Random Glucose 108 H (74-106) mg/dL Calcium 8.9 (8.5-10.1) mg/dL Magnesium 1.6 (1.5-2.5) mg/dL Total Bilirubin 0.3 (0.2-1.0) mg/dL AST 11 L (15-37) U/L ALT 13 (10-53) U/L Alkaline Phosphatase 98 (45-117) U/L Total Protein 7.3 (6.4-8.2) g/dL Albumin 3.0 L (3.4-5.0) g/dL Lipase 58 L (73-393) U/L Urine Color (Yellw/Straw) Urine Clarity (Clear) Urine pH (5.0-8.5) Ur Specific [place] (1.002-1.035) Urine Protein (Neg-Trace) mg/dL Urine Glucose (UA) (Negative) mg/dL Urine Ketones (Negative) mg/dL Urine Occult Blood (Negative) Urine Nitrate (Negative) Urine Bilirubin (Negative) Urine Urobilinogen (Less than 2) mg/dL Ur Leukocyte Esterase (Negative) Urine RBC (0-3) /hpf Urine WBC (0-5) /hpf Ur Squamous Epith Cells (0-5) /hpf Urine Bacteria (None) /hpf Urine Mucus (Occasional) /lpf Micro UA Comment Ur Microscopic Review Urine Culture Comments Imaging Data Attestation: I personally reviewed and interpreted this imaging study as follows : Radiologist's impression: Abdomen/Pelvis CT 07/12/18 13:02 CONCLUSION: 1. Questionable short segment area of thickened small bowel in the right mid pelvis seen on both the coronal and axial images could be a site of obstruction. The proximal small bowel does appear to be distended and dilated filled with fluid breast at retroperitoneum and distal ileum are decompressed. 2. Status post cholecystectomy. ECG Data EKG Prior to Arrival: No Attestation: I personally reviewed and interpreted this ECG as follows: Interpretation: EKG at 1333: NSR at 78bpm, qt/qtc: 395/428, no acute st or t wave changes Discharge Plan Discharge Disposition Patient Disposition: 30 Still Patient Discharge Condition Condition: Stable Discharge Details Diagnosis: Small bowel obstruction Physicians Team ED Provider: Ronda Gregory Primary Care Provider: Watson Salter Attending Provider: Killian Escobar Discharge Interventions Interventions: Vital Signs Last Done: 07/12/18 15:44 Status ED Status: Admitted Observation Patient
[2018-07-12 14:23] LABS: Baso % (Auto) 0.4 % (0.0-2.0); Eos % (Auto) 0.2 % (0.0-4.0); Hematocrit 34.2 % (35.0-46.0); Hemoglobin 11.8 gm/dL (11.6-15.3); Lymph # (Auto) 0.9 th/mm3 (1.0-4.8); Lymph % (Auto) 7.9 % (9.0-44.0); Mean Corpuscular HGB Conc 34.5 % (32.0-36.0); Mean Corpuscular Hemoglobin 30.4 pg (27.0-34.0); Mean Corpuscular Volume 88.2 fL (80.0-100.0); Mono # (Auto) 0.6 th/mm3 (0.0-0.9); Mono % (Auto) 5.1 % (0.0-8.0); Neut # (Auto) 9.9 th/mm3 (1.8-7.7); Neut % (Auto) 86.4 % (16.0-70.0); Platelet Count 390 th/mm3 (150-450); Red Blood Count 3.88 mil/mm3 (4.00-5.30); Red Cell Distribution Width 14.2 % (11.6-17.2); White Blood Count 11.4 th/mm3 (4.0-11.0)
[2018-07-12 14:30] LABS: Activated Partial Thrombo Time 25.7 sec (24.3-30.1)
[2018-07-12 14:35] LABS: Bacteria,Urine Rare /hpf; Bilirubin,Urine Negative (Negative); Color,Urine Yellow (Yellw/Straw); Glucose,Urine (UA) Negative (Negative); Leukocyte Esterase,Urine Negative (Negative); Mucus,Urine Few /lpf (Occasional); Nitrite,Urine Negative (Negative); Specific Gravity,Urine 1.015 (1.002-1.035); Squamous Epithelial Cell,Urine 6 /hpf (0-5)
[2018-07-12 14:36] LABS: Clarity,Urine Clear (Clear)
[2018-07-12 14:50] LABS: Alanine Aminotransferase 13 U/L (10-53); Anion Gap 11 meq/L (5-15); Aspartate Aminotransferase 11 U/L (15-37); Blood Urea Nitrogen 16 mg/dL (7-18); Calcium 8.9 mg/dL (8.5-10.1); Carbon Dioxide 26.2 meq/L (21.0-32.0); Chloride 98 meq/L (98-107); Glomerular Filtration Rate 82 mL/min (>89); Glucose,Random 108 mg/dL (74-106); Lipase 58 U/L (73-393); Magnesium 1.6 mg/dL (1.5-2.5); Potassium 3.7 meq/L (3.5-5.1); Sodium 135 meq/L (136-145)
[2018-07-12 14:52] LABS: Alkaline Phosphatase 98 U/L (45-117); Total Protein 7.3 g/dL (6.4-8.2)
[2018-07-12] MEDS ORDERED: Acetaminophen 325 MG Tablet PO PRN ×2 (15:58→16:16)
[2018-07-12] MEDS ORDERED: Bisacodyl 10 MG Supp RECTAL PRN (15:58)
--- NOTE | 2018-07-12 16:04 | P.HPIM ---
History of Present Illness Primary Care Physician: Watson Salter MD History of Present Illness: Patient is 77 yo woman with past hx of dm 2, , HTN, hyperlipidemia, osteoarthritis and hx of colorectal cancer. According to pt and family she has had intermittent abdomen pains for a year. She has undergone egd and colonoscopy w/out clear identification. She has seen GI for evaluation and also 2 CT scans including angiogram w/out any conclusion. Patient recently admitted 07/01/18 - > 07/08/18 for partial SBO. During that hospitalization initial CT showed air fluid levels with concern for transition point, later small bowel follow through was negative. Patient also had an gastric emptying scan which was normal. Patient returns to the ER today with c/o of recurrent similar abd pain described as a tightening/pulling upward in her lower abdomen. 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 IBS Fatty liver Possible TIA in February 2016, pt has been on Aggrenox since then Appendectomy right tka Cholecystectomy Resection of right inguinal lymph nodes in 2007 Total Hysterectomy in 1976 Family History Noncontributory Social History Hx of tobacco use Denies any alcohol or illicit drug use Pt is an RN Medications and Allergies Allergies Allergy/AdvReac Type Severity Reaction Status Date / Time meperidine Allergy Severe Psychosis Verified 07/12/18 12:48 tetanus immune globulin Allergy Severe SWELLING Verified 07/12/18 12:48 adhesive Allergy Intermediate BLISTERS Verified 07/12/18 12:48 Home Medications Medication Instructions Recorded Confirmed Type aspirin-dipyridamole 1 cap PO DAILY 07/01/18 07/12/18 History cholecalciferol (vitamin D3) 5,000 unit PO DAILY 07/01/18 07/12/18 History donepezil 5 mg PO DAILY 07/01/18 07/12/18 History escitalopram oxalate [Lexapro] 10 mg PO DAILY 07/01/18 07/12/18 History levothyroxine [Synthroid] 75 mcg PO DAILY 07/01/18 07/12/18 History lisinopril 2.5 mg PO DAILY 07/01/18 07/12/18 History metformin 250 mg PO BID 07/01/18 07/12/18 History pantoprazole [Protonix] 40 mg PO BID 07/01/18 07/12/18 History simvastatin 40 mg PO QPM 07/01/18 07/12/18 History trazodone 50 mg PO HS 07/01/18 07/12/18 History Active Medications: Active Medications Acetaminophen (Tylenol) 650 mg PO Q4H PRN PRN Reason: Temp > 100.4 Bisacodyl (Dulcolax Supp) 10 mg RECTAL DAILY PRN PRN Reason: SEVERE CONSITIPATION Donepezil HCl (Aricept) 5 mg PO DAILY ANALIA Escitalopram Oxalate (Lexapro) 10 mg PO DAILY ANALIA Sodium Chloride (Ns Inj) 1,000 mls @ 50 mls/hr IV.CONT .Q20H ANALIA Levothyroxine Sodium (Synthroid) 75 mcg PO DAILY ANALIA Pantoprazole Sodium (Protonix) 40 mg PO BID ANALIA Senna/Docusate Sodium (Heaven-Colace) 1 tab PO BID ANALIA Sodium Chloride (Ns Flush) 2 ml IV.FLUSH PRN PRN PRN Reason: FLUSH AFTER USING IV ACCESS Physical Exam Vital signs: Last Vital Signs Temp 97.9 F 07/12/18 12:35 Pulse 93 H 07/12/18 15:44 Resp 18 07/12/18 15:44 BP 121/58 L 07/12/18 15:44 Pulse Ox 95 07/12/18 15:44 Narrative: GENERAL: This is a thin elderly 77 year old female, well-developed patient, in no apparent distress. CARDIOVASCULAR: Regular rate and rhythm RESPIRATORY: Clear to auscultation. Breath sounds equal bilaterally. GASTROINTESTINAL: Abdomen soft, mild tenderness bilateral lower abd LLQ > RLQ, nondistended. Normal active bowel sounds MUSCULOSKELETAL: Extremities without clubbing, cyanosis, or edema. NEURO: Alert & Oriented. Moves all ext x4 Results Labs CBC & Chem 7: 07/12/18 13:50 07/12/18 13:50 Caprini VTE Risk Assessment Caprini VTE Risk Assessment: Moderate/High Risk (score >= 2) Caprini Risk Assessment Model: Point Value = 1 Point Value = 2 Point Value = 3 Point Value = 5 Age 41-60 Minor surgery BMI > 25 kg/m2 Swollen legs Varicose veins or History of unexplained or recurrent spontaneous Oral contraceptives or hormone replacement Sepsis (< 1 month) Serious lung disease, including pneumonia (< 1 month) Abnormal pulmonary function Acute myocardial infarction Congestive heart failure (< 1 month) History of inflammatory bowel disease Medical patient at bed rest Age 61-74 Arthroscopic surgery Major open surgery (> 45 min) Laparoscopic surgery (> 45 min) Malignancy Confined to bed (> 72 hours) Immobilizing plaster cast Central venous access Age >= 75 History of VTE Family history of VTE Factor V Leiden Prothrombin [id number] Lupus anticoagulant Anticardiolipin antibodies Elevated serum homocysteine Heparin-induced thrombocytopenia Other congenital or acquired thrombophilia Stroke (< 1 month) Elective arthroplasty Hip, pelvis, or leg fracture Acute spinal cord injury (< 1 month) Prophylaxis Regimen: Total Risk Factor Score Risk Level Prophylaxis Regimen 0-1 Low Early ambulation 2 Moderate Order ONE of the following: *Sequential Compression Device (SCD) *Heparin 5000 units SQ BID 3-4 Higher Order ONE of the following medications: *Heparin 5000 units SQ TID *Enoxaparin/Lovenox 40 mg SQ daily (WT < 150 kg, CrCl > 30 mL/min) *Enoxaparin/Lovenox 30 mg SQ daily (WT < 150 kg, CrCl > 10-29 mL/min) *Enoxaparin/Lovenox 30 mg SQ BID (WT < 150 kg, CrCl > 30 mL/min) AND/OR *Sequential Compression Device (SCD) 5 or more Highest Order ONE of the following medications: *Heparin 5000 units SQ TID (Preferred with Epidurals) *Enoxaparin/Lovenox 40 mg SQ daily (WT < 150 kg, CrCl > 30 mL/min) *Enoxaparin/Lovenox 30 mg SQ daily (WT < 150 kg, CrCl > 10-29 mL/min) *Enoxaparin/Lovenox 30 mg SQ BID (WT < 150 kg, CrCl > 30 mL/min) AND *Sequential Compression Device (SCD) Assessment and Plan Plan Abd pain - Pt is a 77 y/o female with hx of rectal cancer, dementia, HTN, hyperlipidemia. - [place] [facility] [place] with complaints of worsening abdominal pain. - This pain has apparently been present on and off for over a year but in the last 4 weeks it has been more persistent and severe. The pain involves the lower abdomen as well as the left flank area. - Patient recently admitted 07/01/18 -> 07/08/18 for partial SBO. Patient recently admitted 07/01/18 -> 07/08/18 for partial SBO. Initial CT showed air fluid levels with concern for transition point, later small bowel follow through was negative. Patient also had an gastric emptying scan which was normal. - Today patient returns to the ER today with c/o of recurrent similar abd pain described as a tightening/pulling upward in her lower abdomen. - Abdomen/Pelvis CT (07/01/18): 1. The findings are concerning for small bowel obstruction with dilated loops of small intestine, and transition point in the right lower quadrant with decompressed distal ileum. 2. Atherosclerosis. 3. Right renal cyst. - NGT removed - comgmt with GI and General Surgery - Abdomen X-Ray (07/02/18): - Gaseous distention of bowel loops without obstruction. - SBFT (07/02/18) --> no obstruction - case d/w General Surgery (07/04/18), Dr. Castillo. - Pt's son, Norberto Carole, requesting GI consultation regarding weight loss. - Colonoscopy (07/05/18) with Dr. Whitney - Diverticulosis - EGD (07/05/18) with Dr. Whitney - Small distal esophageal ulcer - Mild Schatzki ring - Nodule in the cardia - Gastritis - Food residue in the stomach suggestive of gastroparesis - In reviewing results of pt's EGD, it should be noted that pt has been receiving IV morphine which could also contribute to delayed gastric motility - tylenol prn pain - GES (07/07) --> normal kinetics - IVF - CT abd/pelvis pending - SCDs for DVT prophylaxis - supportive care. Left sided abdominal pain Weight loss Hx of rectal cancer Hx of Esophageal strictures Hx of collagenous colitis - Pt has had multiple EGDs with dilation (12/18/16, 08/09/17, 02/17/18) all with noted distal esophageal stricture which were dilated - Colonoscopy (12/18/16) with Dr. Moscoso --> Diverticulosis, and hemorrhoids. Pathology was negative. - Pt has had outpt CTs and CTA over the last year without any indication as the the case for her pain Hypothyroidism - Continue home Levothyroxine
--- NOTE | 2018-07-12 16:22 | CT ---
EXAM DATE: 07/12/2018 4:15 PM EDT AGE/SEX: 77 years / Female INDICATIONS: History of bowel obstruction, discharged yesterday, now complaining of abdominal pain CLINICAL DATA: This is the patient's initial encounter. Patient reports that signs and symptoms have been present for 3 days and indicates a pain score of 5/10. MEDICAL/SURGICAL HISTORY: Carcinoma, colon. Cholecystectomy. Hysterectomy. Partial colectomy ORAL CONTRAST: No oral contrast ingested. RADIATION DOSE: 6.64 CTDI (mGy) COMPARISON: [facility], CT ABDOMEN & PELVIS W CONTRAST, 07/01/2018. . TECHNIQUE: Multiple contiguous axial images were obtained through the abdomen and pelvis following b olus infusion of 98 ml Omnipaque 350 (iohexol) nonionic water-soluble contrast as a single exam dos e. No oral contrast ingested. Using automated exposure control and adjustment of the mA and/or kV ac cording to patient size, radiation dose was kept as low as reasonably achievable to obtain optimal di agnostic quality images. DICOM format image data is available electronically for review and comparis on. FINDINGS: Lower Lungs: The visualized lower lungs are clear. Liver: The liver has a homogeneous density without space-occupying lesion. There is mild dilation of the biliary tree status post cholecystectomy. Spleen: Homogeneous density without enlargement. Pancreas: Unremarkable without mass or calcification. Kidneys: Normal in size and shape. No evidence of mass or hydronephrosis other than cysts in the rig ht kidney. Adrenal Glands: Unremarkable. Aorta: The aorta and proximal iliac vessels are grossly unremarkable without aneurysmal dilation. D ense atherosclerotic disease without aneurysm Bowel/Mesentery: The patient again has numerous dilated loops of small bowel including one loop in t he right mid pelvis measuring 4.1 cm across. On image 52, series 2 there is a focal area of questiona mau thickened wall within the small bowel could be the site of obstruction. The same loop is also thi ckened on the 19th. There are some nondistended loops of small bowel distally. Small amount of free f luid in the pelvis. Abdominal Wall: Intact. Retroperitoneum: No evidence of adenopathy in the retrocrural, para-aortic, or deep pelvic regions. Bladder: Contours are smooth. Reproductive Organs: No abnormal masses or calcifications seen. Inguinal: The inguinal region is unremarkable without evidence of adenopathy. Bony Structures: Unremarkable. CONCLUSION: 1. Questionable short segment area of thickened small bowel in the right mid pelvis seen on both the coronal and axial images could be a site of obstruction. The proximal small bowel does appear to be distended and dilated filled with fluid breast at retroperitoneum and distal ileum are decompressed. 2. Status post cholecystectomy. Electronically signed by: Hunter Okeefe MD 07/12/2018 4:20 PM EDT
[2018-07-12] MEDS: Sod Chloride 0.9% Inj 1,000 ML IV.CONT SCH (20:20)
[2018-07-12] MEDS ORDERED: Senna/Docusate Sodium 8.6/50 MG Tablet PO SCH (21:00)
--- NOTE | 2018-07-12 22:10 | P.CONGS ---
[facility] Gen Surgery Consult Note Consult date: 07/12/18 Narrative: 77 yo F recently discharged after hospitalization with extensive GI workup and likely small bowel obstruction. Her symptoms have returned, primarily lower abdominal pain associated with decreased flatus and no BM for a couple of days. She denies nausea or vomiting. CT a/p again concerning for small bowel obstruction. She did have a normal small bowel series during her last admission. PSH includes open johs hysterectomy. She is on aggrenox. Review of Systems All other systems reviewed negative except as stated in [facility] - History History Provided By: Patient - Medical History Medical History: Medical History (Last Reviewed 07/12/18 @ 13:22 by Lia Robin RN) Colon cancer Dementia Diabetes H/O: hysterectomy High cholesterol Hypertension Hypothyroid - Surgical History Surgical History: Surgical History (Last Reviewed 07/12/18 @ 13:22 by Lia Robin RN) History of partial colectomy Hx of cholecystectomy Hx of tonsillectomy - Social History I have reviewed the patient's Social History: Yes - Tobacco History Second Hand Smoke Exposure: No Tobacco Use In Past 30 Days: No Smoking Status: Former smoker Tobacco Type: Cigarettes - Alcohol History How Often Do You Have a Drink Containing Alcohol: Never - Substance Use History Substance History: No History of Abuse - Travel History Recent Travel in the [place] Within the Last 8 Weeks: No Recent Travel Out of the Country Within the Last 8 Weeks: No - Immunization History Tetanus Immunization: Unsure Hx Influenza Vaccine This Season: Yes Medications and Allergies Active Medications: Active Medications Acetaminophen (Tylenol) 650 mg PO Q4H PRN PRN Reason: PAIN 1-10 AND/OR FEVER >101F Bisacodyl (Dulcolax Supp) 10 mg RECTAL DAILY PRN PRN Reason: SEVERE CONSITIPATION Donepezil HCl (Aricept) 5 mg PO DAILY [facility] Enalaprilat (Vasotec Inj) 1.25 mg IV.PUSH Q6H PRN PRN Reason: SBP>160, DBP>90 Escitalopram Oxalate (Lexapro) 10 mg PO DAILY [facility] Sodium Chloride (Ns Inj) 1,000 mls @ 50 mls/hr IV.CONT .Q20H [facility] Last Admin: 07/12/18 20:20 Dose: 50 mls/hr Levothyroxine Sodium (Synthroid) 75 mcg PO DAILY@0600 [facility] Ondansetron HCl (Zofran Inj) 4 mg IV.PUSH Q6H PRN PRN Reason: NAUSEA OR VOMITING Pantoprazole Sodium (Protonix) 40 mg PO BID [facility] Last Admin: 07/12/18 20:20 Dose: Not Given Senna/Docusate Sodium (Heaven-Colace) 1 tab PO BID [facility] Sodium Chloride (Ns Flush) 2 ml IV.FLUSH PRN PRN PRN Reason: FLUSH AFTER USING IV ACCESS Allergies Allergy/AdvReac Type Severity Reaction Status Date / Time meperidine Allergy Severe Psychosis Verified 07/12/18 12:48 tetanus immune globulin Allergy Severe SWELLING Verified 07/12/18 12:48 adhesive Allergy Intermediate BLISTERS Verified 07/12/18 12:48 Home Medications Medication Instructions Recorded Confirmed Type aspirin-dipyridamole 1 cap PO DAILY 07/01/18 07/12/18 History cholecalciferol (vitamin D3) 5,000 unit PO DAILY 07/01/18 07/12/18 History donepezil 5 mg PO DAILY 07/01/18 07/12/18 History escitalopram oxalate [Lexapro] 10 mg PO DAILY 07/01/18 07/12/18 History levothyroxine [Synthroid] 75 mcg PO DAILY 07/01/18 07/12/18 History lisinopril 2.5 mg PO DAILY 07/01/18 07/12/18 History metformin 250 mg PO BID 07/01/18 07/12/18 History pantoprazole [Protonix] 40 mg PO BID 07/01/18 07/12/18 History simvastatin 40 mg PO QPM 07/01/18 07/12/18 History trazodone 50 mg PO HS 07/01/18 07/12/18 History Exam Vital signs: Vital Signs 07/12/18 12:35 07/12/18 13:23 07/12/18 15:44 Temperature 97.9 F Pulse Rate 79 93 H Respiratory Rate 16 18 18 Blood Pressure 170/77 H 121/58 L Pulse Oximetry 100 95 07/12/18 18:20 07/12/18 20:00 Temperature 98.2 F Pulse Rate 93 H 82 Respiratory Rate 18 16 Blood Pressure 97/51 L 121/56 L Pulse Oximetry 96 92 L Intake & Output 07/12/18 07/12/18 07/13/18 06:59 18:59 06:59 Intake Total 1000 / 1000 Balance 1000 / 1000 Weight 43.091 kg Intake: IV 1000 / 1000 NS Inj 1,000 ML @ Wide Open IV. 1000 / 1000 SIG BOLUS ONE Rx#:[id number] Narrative: GENERAL: Awake and alert. No acute distress. Cooperative. Holding her abdomen as if in some pain. HEAD: Normocephalic. Atraumatic. EYES: Pupils equal round and reactive to light bilaterally. No scleral icterus. ENT: Moist oral mucosa. NECK: Trachea midline. CHEST: Lungs clear to auscultation bilaterally with no wheezing or rhonchi. No respiratory distress. CARDIOVASCULAR: Regular rate and rhythm. ABDOMEN: Right subcostal scar. Moderate ttp in lower abdomen bilaterally. No rebound or guarding. Only mild distention. EXTREMITIES: No cyanosis or edema. SKIN: Warm, dry, nonjaundiced. Results - Labs 07/12/18 13:50 07/12/18 13:50 Laboratory Results - last 24 hr 07/12/18 07/12/18 07/12/18 13:49 13:50 13:50 WBC 11.4 H RBC 3.88 L Hgb 11.8 Hct 34.2 L MCV 88.2 MCH 30.4 MCHC 34.5 RDW 14.2 Plt Count 390 MPV 7.0 Neut % (Auto) 86.4 H Lymph % (Auto) 7.9 L [place] % (Auto) 5.1 Eos % (Auto) 0.2 Baso % (Auto) 0.4 Neut # (Auto) 9.9 H Lymph # (Auto) 0.9 L [place] # (Auto) 0.6 Eos # (Auto) 0.0 Baso # (Auto) 0.0 WBC Differential . Differential Comment Auto diff final PT 10.0 INR 1.0 APTT 25.7 Sodium Potassium Chloride Carbon Dioxide Anion Gap BUN Creatinine Estimated GFR Random Glucose Calcium Magnesium Total Bilirubin AST ALT Alkaline Phosphatase Total Protein Albumin Lipase Urine Color Yellow Urine Clarity Clear Urine pH 8.0 Ur Specific [place] 1.015 Urine Protein 30 H Urine Glucose (UA) Negative Urine Ketones Trace H Urine Occult Blood Negative Urine Nitrate Negative Urine Bilirubin Negative Urine Urobilinogen 2.0 H Ur Leukocyte Esterase Negative Urine RBC Less than 1 Urine WBC 4 Ur Squamous Epith Cells 6 Urine Bacteria Rare H Urine Mucus Few H Micro UA Comment Culture not ind Ur Microscopic Review Not Reportable Urine Culture Comments Culture not ind 07/12/18 13:50 WBC RBC Hgb Hct MCV MCH MCHC RDW Plt Count MPV Neut % (Auto) Lymph % (Auto) [place] % (Auto) Eos % (Auto) Baso % (Auto) Neut # (Auto) Lymph # (Auto) [place] # (Auto) Eos # (Auto) Baso # (Auto) WBC Differential Differential Comment PT INR APTT Sodium 135 L Potassium 3.7 Chloride 98 Carbon Dioxide 26.2 Anion Gap 11 BUN 16 Creatinine 0.70 Estimated GFR 82 L Random Glucose 108 H Calcium 8.9 Magnesium 1.6 Total Bilirubin 0.3 AST 11 L ALT 13 Alkaline Phosphatase 98 Total Protein 7.3 Albumin 3.0 L Lipase 58 L Urine Color Urine Clarity Urine pH Ur Specific [place] Urine Protein Urine Glucose (UA) Urine Ketones Urine Occult Blood Urine Nitrate Urine Bilirubin Urine Urobilinogen Ur Leukocyte Esterase Urine RBC Urine WBC Ur Squamous Epith Cells Urine Bacteria Urine Mucus Micro UA Comment Ur Microscopic Review Urine Culture Comments - Imaging Imaging: ITS Impressions Abdomen/Pelvis CT 07/12/18 13:02 CONCLUSION: 1. Questionable short segment area of thickened small bowel in the right mid pelvis seen on both the coronal and axial images could be a site of obstruction. The proximal small bowel does appear to be distended and dilated filled with fluid breast at retroperitoneum and distal ileum are decompressed. 2. Status post cholecystectomy. CT scan - abdomen: report reviewed, image reviewed CT scan - pelvis: report reviewed, image reviewed Assessment and Plan - Assessment (1) Small bowel obstruction Code(s): K56.609 - Unspecified intestinal obstruction, unspecified as to partial versus complete obstruction Status: Acute - Plan Due to persistent symptoms and concern for bowel obstruction on CT a/p will plan to proceed with diagnostic laparoscopy, possible laparotomy tomorrow. Will discuss again with patient in the morning. Discussed Condition With: Ian Escobar
[2018-07-13] MEDS: Morphine Sulfate Inj 2 MG/ML Vial IV.PUSH PRN ×2 (05:01→22:02)
[2018-07-13] MEDS ORDERED: Levothyroxine 75 MCG Tablet PO SCH (06:00)
--- NOTE | 2018-07-13 08:41 | XR ---
EXAM DATE: 07/13/2018 8:27 AM EDT AGE/SEX: 77 years / Female INDICATIONS: Abdomen pain. CLINICAL DATA: This is the patient's subsequent encounter. Patient reports that signs and symptoms h ave been present for 1 month and indicates a pain score of 10/10. MEDICAL/SURGICAL HISTORY: . Carcinoma, colon. . Cholecystectomy. Hysterectomy. Partial colect maribel COMPARISON: [facility] [place], ABDOMEN 2V FLAT & UPRIGHT, 07/04/2018. . FINDINGS: Compared to 07/04/2018 there is increasing dilatation of proximal small bowel look compared to dista l. There is some gas in distal small bowel and in the colon. Moderate scoliosis is noted. There is no free air. CONCLUSION: Increasing dilatation of proximal small bowel without evidence for obvious obstruction. Electronically signed by: Felton Renteria MD 07/13/2018 8:40 AM EDT
[2018-07-13] MEDS ORDERED: Escitalopram 10 MG Tablet PO SCH (09:00)
--- NOTE | 2018-07-13 09:48 | P.CONIM ---
History of Present Illness Primary Care Provider: Watson Salter MD [facility] Medical History Medical History Colon cancer (Acute) Dementia (Acute) Diabetes (Acute) H/O: hysterectomy (Acute) High cholesterol (Acute) Hypertension (Acute) Hypothyroid (Acute) Surgical History Surgical History History of partial colectomy (Acute) Hx of cholecystectomy (Acute) Hx of tonsillectomy (Acute) Social History Social History Substance History: No History of Abuse Second Hand Smoke Exposure: No Smoking Status: Former smoker Tobacco Type: Cigarettes How Often Do You Have a Drink Containing Alcohol: Never Recent Travel in [facility] within the Last 8 Weeks: No Recent Out of Country Travel within the Last 8 Weeks: No Immunization History Tetanus Immunization: Unsure Hx Influenza Vaccine This Season: Yes Medications and Allergies Allergies Allergy/AdvReac Type Severity Reaction Status Date / Time meperidine Allergy Severe Psychosis Verified 07/12/18 12:48 tetanus immune globulin Allergy Severe SWELLING Verified 07/12/18 12:48 adhesive Allergy Intermediate BLISTERS Verified 07/12/18 12:48 Home Medications Medication Instructions Recorded Confirmed Type aspirin-dipyridamole 1 cap PO DAILY 07/01/18 07/12/18 History cholecalciferol (vitamin D3) 5,000 unit PO DAILY 07/01/18 07/12/18 History donepezil 5 mg PO DAILY 07/01/18 07/12/18 History escitalopram oxalate [Lexapro] 10 mg PO DAILY 07/01/18 07/12/18 History levothyroxine [Synthroid] 75 mcg PO DAILY 07/01/18 07/12/18 History lisinopril 2.5 mg PO DAILY 07/01/18 07/12/18 History metformin 250 mg PO BID 07/01/18 07/12/18 History pantoprazole [Protonix] 40 mg PO BID 07/01/18 07/12/18 History simvastatin 40 mg PO QPM 07/01/18 07/12/18 History trazodone 50 mg PO HS 07/01/18 07/12/18 History Active Medications: Active Medications Acetaminophen (Tylenol) 650 mg PO Q4H PRN PRN Reason: PAIN 1-10 AND/OR FEVER >101F Bisacodyl (Dulcolax Supp) 10 mg RECTAL DAILY PRN PRN Reason: SEVERE CONSITIPATION Donepezil HCl (Aricept) 5 mg PO DAILY [facility] Enalaprilat (Vasotec Inj) 1.25 mg IV.PUSH Q6H PRN PRN Reason: SBP>160, DBP>90 Escitalopram Oxalate (Lexapro) 10 mg PO DAILY [facility] Sodium Chloride (Ns Inj) 1,000 mls @ 50 mls/hr IV.CONT .Q20H [facility] Last Admin: 07/12/18 20:20 Dose: 50 mls/hr Levothyroxine Sodium (Synthroid) 75 mcg PO DAILY@0600 [facility] Morphine Sulfate (Morphine Inj) 2 mg IV.PUSH Q3H PRN PRN Reason: PAIN SCALE 3-10 Last Admin: 07/13/18 05:01 Dose: 2 mg Ondansetron HCl (Zofran Inj) 4 mg IV.PUSH Q6H PRN PRN Reason: NAUSEA OR VOMITING Pantoprazole Sodium (Protonix) 40 mg PO BID [facility] Last Admin: 07/12/18 20:20 Dose: Not Given Senna/Docusate Sodium (Heaven-Colace) 1 tab PO BID [facility] Sodium Chloride (Ns Flush) 2 ml IV.FLUSH PRN PRN PRN Reason: FLUSH AFTER USING IV ACCESS Physical Exam Vital signs: Last Vital Signs Temp 98.8 F 07/13/18 08:00 Pulse 83 07/13/18 08:00 Resp 18 07/13/18 08:00 BP 109/56 L 07/13/18 08:00 Pulse Ox 95 07/13/18 08:00 Results Labs CBC & Chem 7: 07/12/18 13:50 07/12/18 13:50 Assessment and Plan Assessment (1) Small bowel obstruction: Code(s): K56.609 - Unspecified intestinal obstruction, unspecified as to partial versus complete obstruction Status: Acute Plan Abd pain - Pt is a 77 y/o female with hx of rectal cancer, dementia, HTN, hyperlipidemia. - She presented to the ED at [facility] [place] on 07/01/18 with complaints of worsening abdominal pain. - This pain has apparently been present on and off for over a year but in the last 4 weeks it has been more persistent and severe. The pain involves the lower abdomen as well as the left flank area. - Patient recently admitted 07/01/18 -> 07/08/18 for partial SBO. Patient recently admitted 07/01/18 -> 07/08/18 for partial SBO. Initial CT showed air fluid levels with concern for transition point, later small bowel follow through was negative. Patient also had an gastric emptying scan which was normal. - Today patient returns to the ER today with c/o of recurrent similar abd pain described as a tightening/pulling upward in her lower abdomen. - Abdomen/Pelvis CT (07/01/18): 1. The findings are concerning for small bowel obstruction with dilated loops of small intestine, and transition point in the right lower quadrant with decompressed distal ileum. 2. Atherosclerosis. 3. Right renal cyst. - NGT removed - comgmt with GI and General Surgery - Abdomen X-Ray (07/02/18): - Gaseous distention of bowel loops without obstruction. - SBFT (07/02/18) --> no obstruction - case d/w General Surgery (07/04/18), Dr. Castillo. - Pt's son, Dr. Lam, requesting GI consultation regarding weight loss. - Colonoscopy (07/05/18) with Dr. Whitney - Diverticulosis - EGD (07/05/18) with Dr. Whitney - Small distal esophageal ulcer - Mild Schatzki ring - Nodule in the cardia - Gastritis - Food residue in the stomach suggestive of gastroparesis - In reviewing results of pt's EGD, it should be noted that pt has been receiving IV morphine which could also contribute to delayed gastric motility - tylenol prn pain - GES (07/07) --> normal kinetics - IVF - CT abd/pelvis pending - SCDs for DVT prophylaxis - supportive care. Left sided abdominal pain Weight loss Hx of rectal cancer Hx of Esophageal strictures Hx of collagenous colitis - Pt has had multiple EGDs with dilation (12/18/16, 08/09/17, 02/17/18) all with noted distal esophageal stricture which were dilated - Colonoscopy (12/18/16) with Dr. Moscoso --> Diverticulosis, and hemorrhoids. Pathology was negative. - Pt has had outpt CTs and CTA over the last year without any indication as the the case for her pain Hypothyroidism - Continue home Levothyroxine
--- NOTE | 2018-07-13 09:54 | P.PNIM ---
Subjective Interval history: pt in chair. doing about the same. Physical Exam Vital signs: Last Vital Signs Temp 98.8 F 07/13/18 08:00 Pulse 83 07/13/18 08:00 Resp 18 07/13/18 08:00 BP 109/56 L 07/13/18 08:00 Pulse Ox 95 07/13/18 08:00 heart reg lung cta abd mild distention. minimal bs ext no edema Results Labs CBC & Chem 7: 07/12/18 13:50 07/12/18 13:50 Assessment and Plan Assessment (1) Small bowel obstruction: Code(s): K56.609 - Unspecified intestinal obstruction, unspecified as to partial versus complete obstruction Status: Acute Plan Abd pain - Pt is a 77 y/o female with hx of rectal cancer, dementia, HTN, hyperlipidemia. - She presented to the ED at [facility] [place] on 07/01/18 with complaints of worsening abdominal pain. - This pain has apparently been present on and off for over a year but in the last 4 weeks it has been more persistent and severe. The pain involves the lower abdomen as well as the left flank area. - Patient recently admitted 07/01/18 -> 07/08/18 for partial SBO. Patient recently admitted 07/01/18 -> 07/08/18 for partial SBO. Initial CT showed air fluid levels with concern for transition point, later small bowel follow through was negative. Patient also had an gastric emptying scan which was normal. - patient returns to the ER today with c/o of recurrent similar abd pain described as a tightening/pulling upward in her lower abdomen. - Abdomen/Pelvis CT (07/01/18): 1. The findings are concerning for small bowel obstruction with dilated loops of small intestine, and transition point in the right lower quadrant with decompressed distal ileum. 2. Atherosclerosis. 3. Right renal cyst. - NGT removed - comgmt with GI and General Surgery - Abdomen X-Ray (07/02/18): - Gaseous distention of bowel loops without obstruction. - SBFT (07/02/18) --> no obstruction - case d/w General Surgery (07/04/18), Dr. Castillo. - Pt's son, Dr. Lam, requesting GI consultation regarding weight loss. - Colonoscopy (07/05/18) with Dr. Whitney - Diverticulosis - EGD (07/05/18) with Dr. Whitney - Small distal esophageal ulcer - Mild Schatzki ring - Nodule in the cardia - Gastritis - Food residue in the stomach suggestive of gastroparesis - In reviewing results of pt's EGD, it should be noted that pt has been receiving IV morphine which could also contribute to delayed gastric motility - GES (07/07) --> normal kinetics Left sided abdominal pain Weight loss Pt readmitted with abomen pain and distention Repeat CT abd/pelvis on 07/12 shows more distention with ?bowel thickening or tranistion point right lower quad. Discussed with gen surg Dr Zhang. plan for exp lap. cont ivf and supportive care Hypothyroidism - Continue home Levothyroxine Progress Note: Quality VTE Deep Vein Thrombosis/Pulmonary Embolism Present on Admission: No
[2018-07-13 09:56] LABS: Baso % (Auto) 0.3 % (0.0-2.0); Eos # (Auto) 0.1 th/mm3 (0.0-0.4); Eos % (Auto) 0.7 % (0.0-4.0); Hematocrit 30.8 % (35.0-46.0); Hemoglobin 10.4 gm/dL (11.6-15.3); Lymph # (Auto) 0.9 th/mm3 (1.0-4.8); Lymph % (Auto) 7.6 % (9.0-44.0); Mean Corpuscular HGB Conc 33.8 % (32.0-36.0); Mean Corpuscular Hemoglobin 30.3 pg (27.0-34.0); Mean Corpuscular Volume 89.9 fL (80.0-100.0); Mono # (Auto) 0.9 th/mm3 (0.0-0.9); Mono % (Auto) 7.7 % (0.0-8.0); Neut # (Auto) 9.4 th/mm3 (1.8-7.7); Neut % (Auto) 83.7 % (16.0-70.0); Platelet Count 385 th/mm3 (150-450); Red Blood Count 3.43 mil/mm3 (4.00-5.30); Red Cell Distribution Width 14.2 % (11.6-17.2); White Blood Count 11.3 th/mm3 (4.0-11.0)
[2018-07-13 10:21] LABS: Anion Gap 12 meq/L (5-15); Blood Urea Nitrogen 15 mg/dL (7-18); Calcium 8.2 mg/dL (8.5-10.1); Carbon Dioxide 24.2 meq/L (21.0-32.0); Chloride 105 meq/L (98-107); Glomerular Filtration Rate Greater Than 89 mL/min (>89); Glucose,Random 88 mg/dL (74-106); Potassium 3.6 meq/L (3.5-5.1); Sodium 141 meq/L (136-145)
--- NOTE | 2018-07-13 12:01 | P.PNGS ---
Subjective Interval history: She relates frequent left upper abdomen/lower chest wall pain and thinks this area is bloated or enlarged. Stable overnight. Physical Exam Vital signs: Vital Signs 07/12/18 12:35 07/12/18 13:23 07/12/18 15:44 Temperature 97.9 F Pulse Rate 79 93 H Respiratory Rate 16 18 18 Blood Pressure 170/77 H 121/58 L Pulse Oximetry 100 95 07/12/18 18:20 07/12/18 20:00 07/12/18 22:00 Temperature 98.2 F Pulse Rate 93 H 82 76 Respiratory Rate 18 16 Blood Pressure 97/51 L 121/56 L Pulse Oximetry 96 94 L 07/13/18 00:00 07/13/18 03:51 07/13/18 04:00 Temperature 98.0 F 98.4 F Pulse Rate 86 86 88 Respiratory Rate 16 18 Blood Pressure 132/60 133/61 Pulse Oximetry 95 97 07/13/18 08:00 Temperature 98.8 F Pulse Rate 83 Respiratory Rate 18 Blood Pressure 109/56 L Pulse Oximetry 95 Intake & Output 07/12/18 07/13/18 07/13/18 18:59 06:59 18:59 Intake Total 1000 / 1000 Balance 1000 / 1000 Weight 43.091 kg 43.8 kg Intake: IV 1000 / 1000 NS Inj 1,000 ML @ Wide Open IV. 1000 / 1000 SIG BOLUS ONE Rx#:[id number] Other: # Voids 3 Weight On Admission 43.8 kg Narrative: NAD Abd: soft, lower abdomen ttp Left lower chest wall protrudes somewhat, no abdominal mass noted Results - Labs 07/13/18 08:56 07/13/18 08:56 Laboratory Results - last 24 hr 07/12/18 07/12/18 07/12/18 13:49 13:50 13:50 WBC 11.4 H RBC 3.88 L Hgb 11.8 Hct 34.2 L MCV 88.2 MCH 30.4 MCHC 34.5 RDW 14.2 Plt Count 390 MPV 7.0 Neut % (Auto) 86.4 H Lymph % (Auto) 7.9 L [place] % (Auto) 5.1 Eos % (Auto) 0.2 Baso % (Auto) 0.4 Neut # (Auto) 9.9 H Lymph # (Auto) 0.9 L [place] # (Auto) 0.6 Eos # (Auto) 0.0 Baso # (Auto) 0.0 WBC Differential . Differential Comment Auto diff final PT 10.0 INR 1.0 APTT 25.7 Sodium Potassium Chloride Carbon Dioxide Anion Gap BUN Creatinine Estimated GFR Random Glucose Calcium Magnesium Total Bilirubin AST ALT Alkaline Phosphatase Total Protein Albumin Lipase Urine Color Yellow Urine Clarity Clear Urine pH 8.0 Ur Specific [place] 1.015 Urine Protein 30 H Urine Glucose (UA) Negative Urine Ketones Trace H Urine Occult Blood Negative Urine Nitrate Negative Urine Bilirubin Negative Urine Urobilinogen 2.0 H Ur Leukocyte Esterase Negative Urine RBC Less than 1 Urine WBC 4 Ur Squamous Epith Cells 6 Urine Bacteria Rare H Urine Mucus Few H Micro UA Comment Culture not ind Ur Microscopic Review Not Reportable Urine Culture Comments Culture not ind 07/12/18 07/13/18 07/13/18 13:50 08:56 08:56 WBC 11.3 H RBC 3.43 L Hgb 10.4 L Hct 30.8 L MCV 89.9 MCH 30.3 MCHC 33.8 RDW 14.2 Plt Count 385 MPV 7.0 Neut % (Auto) 83.7 H Lymph % (Auto) 7.6 L [place] % (Auto) 7.7 Eos % (Auto) 0.7 Baso % (Auto) 0.3 Neut # (Auto) 9.4 H Lymph # (Auto) 0.9 L [place] # (Auto) 0.9 Eos # (Auto) 0.1 Baso # (Auto) 0.0 WBC Differential . Differential Comment Auto diff final PT INR APTT Sodium 135 L 141 Potassium 3.7 3.6 Chloride 98 105 Carbon Dioxide 26.2 24.2 Anion Gap 11 12 BUN 16 15 Creatinine 0.70 0.57 Estimated GFR 82 L Greater than 89 Random Glucose 108 H 88 Calcium 8.9 8.2 L Magnesium 1.6 Total Bilirubin 0.3 AST 11 L ALT 13 Alkaline Phosphatase 98 Total Protein 7.3 Albumin 3.0 L Lipase 58 L Urine Color Urine Clarity Urine pH Ur Specific [place] Urine Protein Urine Glucose (UA) Urine Ketones Urine Occult Blood Urine Nitrate Urine Bilirubin Urine Urobilinogen Ur Leukocyte Esterase Urine RBC Urine WBC Ur Squamous Epith Cells Urine Bacteria Urine Mucus Micro UA Comment Ur Microscopic Review Urine Culture Comments - Imaging Imaging: ITS Impressions Abdomen/Pelvis CT 07/12/18 13:02 CONCLUSION: 1. Questionable short segment area of thickened small bowel in the right mid pelvis seen on both the coronal and axial images could be a site of obstruction. The proximal small bowel does appear to be distended and dilated filled with fluid breast at retroperitoneum and distal ileum are decompressed. 2. Status post cholecystectomy. Abdomen X-Ray 07/13/18 06:00 CONCLUSION: Increasing dilatation of proximal small bowel without evidence for obvious obstruction. Assessment and Plan - Assessment (1) Small bowel obstruction Code(s): K56.609 - Unspecified intestinal obstruction, unspecified as to partial versus complete obstruction Status: Acute - Plan Proceed to OR today due to small bowel obstruction and persistent symptoms. She has undergone extensive workup. Case discussed in detail with the patient as well as her son Saul and she desires to proceed. Plan for dx laparoscopy, possible open, possible bowel resection.
[2018-07-13] MEDS ORDERED: Sodium Chlor 0.9% Inj 500 ML IV.CONT ONE (12:45)
[2018-07-13] MEDS ORDERED: Metoprolol Tartrate 25 MG Tablet PO ONE (12:45)
[2018-07-13] MEDS ORDERED: Chlorhexidine Gluconate 2% 1 Pack (2 Cloths) TOPICAL ONE (12:45)
--- NOTE | 2018-07-13 15:03 | ECG ---
Date Performed: 07/12/2018 Time Performed: 13:33:03 PTAGE: 77 years EKG: Sinus rhythm NORMAL ECG PREVIOUS TRACING : 07/01/2018 20.37 DOCTOR: Hunter Bernal Interpretating Date/Time 07/13/2018 14:58:59
[2018-07-13] MEDS: Sod Chloride 0.9% Inj 1,000 ML IV.CONT SCH ×2 (18:28→18:31)
[2018-07-14] MEDS: Morphine Sulfate Inj 2 MG/ML Vial IV.PUSH PRN ×3 (03:37→20:33)
[2018-07-14] MEDS ORDERED: Bupivacaine/Epinephrine 0.5% Inj 50 ML Vial ONE (09:04)
--- NOTE | 2018-07-14 09:38 | P.PNIM ---
Subjective Interval history: no new complaints Physical Exam Vital signs: Last Vital Signs Temp 98.1 F 07/14/18 08:00 Pulse 71 07/14/18 08:00 Resp 17 07/14/18 08:00 BP 135/63 07/14/18 08:00 Pulse Ox 97 07/14/18 08:00 Narrative: GENERAL: This is a thin elderly 77 year old female, well-developed patient, in no apparent distress. CARDIOVASCULAR: Regular rate and rhythm RESPIRATORY: Clear to auscultation. Breath sounds equal bilaterally. GASTROINTESTINAL: minimal bs. diffusely tender. mild distention MUSCULOSKELETAL: Extremities without clubbing, cyanosis, or edema. NEURO: Alert & Oriented. Moves all ext x4 Results Labs CBC & Chem 7: 07/13/18 08:56 07/13/18 08:56 Assessment and Plan Assessment (1) Small bowel obstruction: Code(s): K56.609 - Unspecified intestinal obstruction, unspecified as to partial versus complete obstruction Status: Acute Plan Abd pain - Pt is a 77 y/o female with hx of rectal cancer, dementia, HTN, hyperlipidemia. - [place] [facility] [place] with complaints of worsening abdominal pain. - This pain has apparently been present on and off for over a year but in the last 4 weeks it has been more persistent and severe. The pain involves the lower abdomen as well as the left flank area. - Patient recently admitted 07/01/18 -> 07/08/18 for partial SBO. Patient recently admitted 07/01/18 -> 07/08/18 for partial SBO. Initial CT showed air fluid levels with concern for transition point, later small bowel follow through was negative. Patient also had an gastric emptying scan which was normal. - patient returns to the ER today with c/o of recurrent similar abd pain described as a tightening/pulling upward in her lower abdomen. - Abdomen/Pelvis CT (07/01/18): 1. The findings are concerning for small bowel obstruction with dilated loops of small intestine, and transition point in the right lower quadrant with decompressed distal ileum. 2. Atherosclerosis. 3. Right renal cyst. - NGT removed - comgmt with GI and General Surgery - Abdomen X-Ray (07/02/18): - Gaseous distention of bowel loops without obstruction. - SBFT (07/02/18) --> no obstruction - case d/w General Surgery (07/04/18), Dr. Castillo. - Pt's son, Dr. Lam, requesting GI consultation regarding weight loss. - Colonoscopy (07/05/18) with Dr. Whitney - Diverticulosis - EGD (07/05/18) with Dr. Whitney - Small distal esophageal ulcer - Mild Schatzki ring - Nodule in the cardia - Gastritis - Food residue in the stomach suggestive of gastroparesis - In reviewing results of pt's EGD, it should be noted that pt has been receiving IV morphine which could also contribute to delayed gastric motility - GES (07/07) --> normal kinetics -Pt readmitted with abomen pain and distention Repeat CT abd/pelvis on 07/12 shows more distention with ?bowel thickening or tranistion point right lower quad. Discussed with gen surg Dr Zhang. plan for exp lap. cont ivf and supportive care Hypothyroidism - Continue home Levothyroxine Progress Note: Quality VTE Deep Vein Thrombosis/Pulmonary Embolism Present on Admission: No
[2018-07-14] MEDS ORDERED: ceFAZolin 1 GM Premix Inj 1 GM/50 ML FROZ.PIGGY IV.SIG ONE (09:41)
[2018-07-14] MEDS ORDERED: Sugammadex Inj 200 MG/2 ML Vial IV.PUSH ONE (11:34)
[2018-07-14] MEDS ORDERED: HYDROmorphone PF Inj 0.5 MG/0.5 ML Syringe IV.PUSH PRN (11:36)
--- NOTE | 2018-07-14 11:44 | P.OP ---
- Preoperative Diagnosis (1) Small bowel obstruction - Postoperative Diagnosis (1) Gallstone ileus of small intestine (2) Small bowel obstruction Date of procedure: 07/14/18 Procedure: Diagnostic laparoscopy Laparoscopic lysis of adhesions Open Small bowel resection Anesthesia: SHUBHAM Surgeon: Bhavesh Zhang MD Rechecker: Lora HUTTON student Estimated blood loss (mL): 50 Pathology: other (small bowel with mass) Operation and Findings: Operative findings: Patient had adhesions of the omentum to the anterior abdominal wall. There is noted to be a mass in the proximal ileum causing transition point. There is induration of the surrounding small bowel and lymphadenopathy in the mesentery. Small bowel resection was performed and small bowel was opened on the back table where it appeared that the mass was consistent with a gallstone. Procedure in detail: The patient was taken to the operating room placed in supine position. General endotracheal anesthesia was induced. The abdomen was prepped and draped in usual sterile fashion and a surgical timeout was performed to verify correct patient procedure and site. Local anesthetic was injected in the skin and subcutaneous tissue in the left upper abdomen and a 5 mm incision made. Using the 5 mm Optiview trocar with the laparoscope in place the abdomen was entered and insufflated to 15 mmHg with CO2 gas which the patient tolerated well. A 5 mm port was placed in the left midabdomen in the left lower abdomen. There were fairly extensive adhesions of omentum to anterior abdominal wall which were taken down sharply and with the harmonic scalpel. There was a few adhesions of small bowel to the omentum in the lower abdomen. After these adhesions were taken down the small bowel was run from the ileocecal valve. At approximately the proximal ileum there is noted to be a mass causing near total obstruction of the small bowel with a transition point. There is induration of the surrounding small bowel. Although there was air in the patient's colon this was clearly a problem and the cause of her symptoms. A small lower midline incision was made approximately 5 cm. Dissection carried out through subcutaneous tissue with electrocautery as well as fascia. The abdomen was bluntly entered. The small bowel mass was brought up through this incision. At the site of healthy small bowel on either side of the mass the mesenteric defect was created in the small bowel transected with the USHA 75 mm blue load. Mesentery was taken down with the harmonic scalpel. There were multiple enlarged lymph nodes and an enlarged artery and vein which required clamping and stick tied with 0 silk suture. Next a [id number] functional end-to-end anastomosis was created using the USHA 75 blue load and the common enterotomy closed with a TX 60. There is no tension and there was an adequate lumen. The mesenteric defect was closed with running 3-0 silk suture. The omentum anastomosis was placed back in the abdominal cavity. The abdomen was irrigated with 1 L of warm normal saline. The fascia was then closed with running #1 PDS suture. Skin was closed with subcuticular 4-0 Monocryl and Dermabond. The patient tolerated the procedure well was explained taken to PACU in stable condition.
[2018-07-14] MEDS ORDERED: *morphine SULFATE 4 MG/ML PERIprocedure ONLY ONE ×2 (12:03→12:14)
[2018-07-14] MEDS ORDERED: fentaNYL Citrate Inj 100 MCG/2 ML Ampul ONE (12:04)
[2018-07-14] MEDS: Ketorolac Inj 30 MG/ML (IVP) Vial IV.PUSH SCH ×2 (12:21→18:04)
[2018-07-14] MEDS: Sod Chloride 0.9% Inj 1,000 ML IV.CONT SCH (12:21)
[2018-07-15] MEDS: Ketorolac Inj 30 MG/ML (IVP) Vial IV.PUSH SCH ×5 (00:18→23:18)
[2018-07-15] MEDS: Sod Chloride 0.9% Inj 1,000 ML IV.CONT SCH (05:28)
--- NOTE | 2018-07-15 08:51 | P.PNGS ---
Subjective Interval history: She is sitting in the chair comfortably. C/o pain in midline and left abdomen where the incisions are. Denies nausea, flatus, or bm. Physical Exam Vital signs: Vital Signs 07/14/18 11:54 07/14/18 12:15 07/14/18 12:30 Temperature 98.3 F Pulse Rate 82 80 79 Respiratory Rate 18 18 18 Blood Pressure 172/68 H 172/79 H 165/77 H Pulse Oximetry 98 98 98 07/14/18 12:45 07/14/18 13:00 07/14/18 16:00 Temperature 98.3 F 98.4 F 98.1 F Pulse Rate 79 79 81 Respiratory Rate 18 18 17 Blood Pressure 163/71 H 167/81 H 155/70 H Pulse Oximetry 98 99 97 07/14/18 20:00 07/15/18 00:00 07/15/18 04:00 Temperature 98.7 F 97.9 F 98.3 F Pulse Rate 92 H 75 79 Respiratory Rate 18 18 18 Blood Pressure 164/72 H 143/69 H 130/63 Pulse Oximetry 97 97 97 07/15/18 08:00 Temperature 98.0 F Pulse Rate 80 Respiratory Rate 18 Blood Pressure 129/60 Pulse Oximetry 96 Intake & Output 07/14/18 07/15/18 07/15/18 18:59 06:59 18:59 Intake Total 2370 / 2370 1510 / 1510 Output Total 850 / 850 Balance 1520 / 1520 1510 / 1510 Weight 44.7 kg Intake: IV 2150 / 2150 1000 / 1000 LR 1000 mL Inj 1,000 ML @ 30 1000 / 1000 mls/hr IV.CONT .Q24H ONE Rx#: [id number] NS Inj 1,000 ML @ 50 mls/hr IV. 1000 / 1000 1000 / 1000 CONT .Q20H [facility] Rx#:[id number] Ancef 1 GM Premix Inj 1 gm In 50 / 50 50 ml @ 0 mls/hr IV.SIG .STK- MED ONE Rx#:[id number] Flagyl 500 MG Inj 100 ML @ 0 100 / 100 mls/hr IV.SIG .STK-MED ONE Rx#: [id number] Oral 120 / 120 510 / 510 Anesthesia Amount 100 / 100 Output: Urine 400 / 400 Estimated Blood Loss 50 / 50 Urine Amount (Catheter) 400 / 400 Indwelling Urethral Catheter 400 / 400 Other: # Voids 4 # Bowel Movements 0 0 Narrative: NAD Abd: soft, mild distention, inc c/d/i - Urinary Catheter Management Indwelling Urethral Catheter Cath placed during this visit: yes, but has since been removed by the nurse Reason for continuing: Hourly intake/output Insertion date: 07/14/18 Insertion time: 09:30 Removal date: 07/14/18 Removal time: 11:42 Results - Labs 07/13/18 08:56 07/13/18 08:56 - Imaging Imaging: ITS Impressions Abdomen/Pelvis CT 07/12/18 13:02 CONCLUSION: 1. Questionable short segment area of thickened small bowel in the right mid pelvis seen on both the coronal and axial images could be a site of obstruction. The proximal small bowel does appear to be distended and dilated filled with fluid breast at retroperitoneum and distal ileum are decompressed. 2. Status post cholecystectomy. Abdomen X-Ray 07/13/18 06:00 CONCLUSION: Increasing dilatation of proximal small bowel without evidence for obvious obstruction. Assessment and Plan - Assessment (1) Small bowel obstruction Code(s): K56.609 - Unspecified intestinal obstruction, unspecified as to partial versus complete obstruction Status: Acute - Plan POD 1 small bowel resection for small bowel mass likely gallstone ileus. Stable post op. Soft diet. AMbulate as tolerated.
--- NOTE | 2018-07-15 10:53 | P.PNIM ---
Subjective Interval history: in chair. asking for dc home. Physical Exam Vital signs: Last Vital Signs Temp 98.0 F 07/15/18 08:00 Pulse 80 07/15/18 08:00 Resp 18 07/15/18 08:00 BP 129/60 07/15/18 08:00 Pulse Ox 96 07/15/18 08:00 Narrative: heart reg lung cta abd incisional pain. bs ext no edema Results Labs CBC & Chem 7: 07/13/18 08:56 07/13/18 08:56 Assessment and Plan Assessment (1) Small bowel obstruction: Code(s): K56.609 - Unspecified intestinal obstruction, unspecified as to partial versus complete obstruction Status: Acute Plan Abd pain - Pt is a 77 y/o female with hx of rectal cancer, dementia, HTN, hyperlipidemia. - She presented to the ED at [facility] [place] with complaints of worsening abdominal pain. - This pain has apparently been present on and off for over a year but in the last 4 weeks it has been more persistent and severe. The pain involves the lower abdomen as well as the left flank area. - Patient recently admitted 07/01/18 -> 07/08/18 for partial SBO. Patient recently admitted 07/01/18 -> 07/08/18 for partial SBO. Initial CT showed air fluid levels with concern for transition point, later small bowel follow through was negative. Patient also had an gastric emptying scan which was normal. - patient returns to the ER today with c/o of recurrent similar abd pain described as a tightening/pulling upward in her lower abdomen. - Abdomen/Pelvis CT (07/01/18): 1. The findings are concerning for small bowel obstruction with dilated loops of small intestine, and transition point in the right lower quadrant with decompressed distal ileum. 2. Atherosclerosis. 3. Right renal cyst. - NGT removed - comgmt with GI and General Surgery - Abdomen X-Ray (07/02/18): - Gaseous distention of bowel loops without obstruction. - SBFT (07/02/18) --> no obstruction - case d/w General Surgery (07/04/18), Dr. Castillo. - Pt's son, Dr. Lam, requesting GI consultation regarding weight loss. - Colonoscopy (07/05/18) with Dr. Whitney - Diverticulosis - EGD (07/05/18) with Dr. Whitney - Small distal esophageal ulcer - Mild Schatzki ring - Nodule in the cardia - Gastritis - Food residue in the stomach suggestive of gastroparesis - In reviewing results of pt's EGD, it should be noted that pt has been receiving IV morphine which could also contribute to delayed gastric motility - GES (07/07) --> normal kinetics -Pt readmitted with abomen pain and distention Repeat CT abd/pelvis on 07/12 shows more distention with ?bowel thickening or transition point right lower quad. 07/14: Dr Zhang Diagnostic laparoscopy,Laparoscopic lysis of adhesions Open Small bowel resection of palpapable intralumen mass ...gross inspection appears to be large gallstone. path pending. diet advanced await pathology ?dc tomorrow. Progress Note: Quality VTE Deep Vein Thrombosis/Pulmonary Embolism Present on Admission: No
[2018-07-15] MEDS: Morphine Sulfate Inj 2 MG/ML Vial IV.PUSH PRN (20:37)
[2018-07-16] MEDS: Sod Chloride 0.9% Inj 1,000 ML IV.CONT SCH (01:42)
[2018-07-16] MEDS: Ketorolac Inj 30 MG/ML (IVP) Vial IV.PUSH SCH (05:57)
--- NOTE | 2018-07-16 09:58 | P.PNIM ---
Subjective Interval history: tolerating diet. eager for dc. Physical Exam Vital signs: Last Vital Signs Temp 97.7 F 07/16/18 08:00 Pulse 73 07/16/18 08:00 Resp 18 07/16/18 08:00 BP 128/60 07/16/18 08:00 Pulse Ox 98 07/16/18 08:00 Narrative: heart reg lung cta abd incisional pain. bs ext no edema Results Labs CBC & Chem 7: 07/13/18 08:56 07/13/18 08:56 Assessment and Plan Assessment (1) Small bowel obstruction: Code(s): K56.609 - Unspecified intestinal obstruction, unspecified as to partial versus complete obstruction Status: Acute Plan Abd pain - Pt is a 77 y/o female with hx of rectal cancer, dementia, HTN, hyperlipidemia. - She presented to the ED at [facility] [place] on 07/01/18 with complaints of worsening abdominal pain. - This pain has apparently been present on and off for over a year but in the last 4 weeks it has been more persistent and severe. The pain involves the lower abdomen as well as the left flank area. - Patient recently admitted 07/01/18 -> 07/08/18 for partial SBO. Patient recently admitted 07/01/18 -> 07/08/18 for partial SBO. Initial CT showed air fluid levels with concern for transition point, later small bowel follow through was negative. Patient also had an gastric emptying scan which was normal. - patient returns to the ER today with c/o of recurrent similar abd pain described as a tightening/pulling upward in her lower abdomen. - Abdomen/Pelvis CT (07/01/18): 1. The findings are concerning for small bowel obstruction with dilated loops of small intestine, and transition point in the right lower quadrant with decompressed distal ileum. 2. Atherosclerosis. 3. Right renal cyst. - NGT removed - comgmt with GI and General Surgery - Abdomen X-Ray (07/02/18): - Gaseous distention of bowel loops without obstruction. - SBFT (07/02/18) --> no obstruction - case d/w General Surgery (07/04/18), Dr. Castillo. - Pt's son, Dr. Lam, requesting GI consultation regarding weight loss. - Colonoscopy (07/05/18) with Dr. Whitney - Diverticulosis - EGD (07/05/18) with Dr. Whitney - Small distal esophageal ulcer - Mild Schatzki ring - Nodule in the cardia - Gastritis - Food residue in the stomach suggestive of gastroparesis - In reviewing results of pt's EGD, it should be noted that pt has been receiving IV morphine which could also contribute to delayed gastric motility - GES (07/07) --> normal kinetics -Pt readmitted with abomen pain and distention Repeat CT abd/pelvis on 07/12 shows more distention with ?bowel thickening or transition point right lower quad. 07/14: Dr Zhang Diagnostic laparoscopy,Laparoscopic lysis of adhesions Open Small bowel resection of palpapable intralumen mass ...gross inspection appears to be large gallstone. path pending. diet advanced and tolerating. await pathology ?dc today. Progress Note: Quality VTE Deep Vein Thrombosis/Pulmonary Embolism Present on Admission: No
--- NOTE | 2018-07-16 10:48 | P.PNGS ---
Subjective Interval history: She feels well. Tolerated regular food for breakfast. + bm. Would like to go home. Minimal pain. Physical Exam Vital signs: Vital Signs 07/15/18 12:00 07/15/18 16:00 07/15/18 20:00 Temperature 99.2 F 98.0 F Pulse Rate 84 71 72 Respiratory Rate 18 18 Blood Pressure 125/60 117/55 L Pulse Oximetry 96 98 07/16/18 00:00 07/16/18 04:00 07/16/18 08:00 Temperature 97.8 F 98.0 F 97.7 F Pulse Rate 78 77 73 Respiratory Rate 18 18 18 Blood Pressure 145/64 H 160/67 H 128/60 Pulse Oximetry 97 97 98 Intake & Output 07/15/18 07/16/18 07/16/18 18:59 06:59 18:59 Intake Total 1204 / 1204 Balance 1204 / 1204 Weight 46.8 kg Intake: IV 1204 / 1204 NS Inj 1,000 ML @ 50 mls/hr IV. 1204 / 1204 CONT .Q20H [facility] Rx#:[id number] Other: # Voids 5 Narrative: NAD Abd: soft, inc c/d/i, nontender - Urinary Catheter Management Indwelling Urethral Catheter Cath placed during this visit: yes, but has since been removed by the nurse Reason for continuing: Hourly intake/output Insertion date: 07/14/18 Insertion time: 09:30 Removal date: 07/14/18 Removal time: 11:42 Results - Labs 07/13/18 08:56 07/13/18 08:56 Laboratory Results - last 24 hr 07/13/18 14:12 MTS Gel Crossmatch See Detail - Imaging Imaging: ITS Impressions Abdomen/Pelvis CT 07/12/18 13:02 CONCLUSION: 1. Questionable short segment area of thickened small bowel in the right mid pelvis seen on both the coronal and axial images could be a site of obstruction. The proximal small bowel does appear to be distended and dilated filled with fluid breast at retroperitoneum and distal ileum are decompressed. 2. Status post cholecystectomy. Abdomen X-Ray 07/13/18 06:00 CONCLUSION: Increasing dilatation of proximal small bowel without evidence for obvious obstruction. Assessment and Plan - Assessment (1) Small bowel obstruction Code(s): K56.609 - Unspecified intestinal obstruction, unspecified as to partial versus complete obstruction Status: Acute - Plan POD 2 small bowel resection for small bowel mass likely gallstone ileus. Stable post op. Soft diet. Ambulate as tolerated. SHe is doing very well and tolerating regular diet. Clear for dc home today from my standpoint. F/u in two weeks.
== END 2018-07-16 12:36 | disposition home or self-care (01) ==
LOC: NEDA 12:29 → NEPD 12:29 → N04 19:56
PROVIDERS: ADMIT Hospitalist; ATTEND Hospitalist
PROC: LAPSCPY (ICD-10-PCS; 2018-07-14 09:20)